=== PATIENT | female | born 1935 | race Asian ===

== ENCOUNTER 2018-05-18 21:37 | Inpatient (IN) | payer MEDICARE, MEDICAID ==
[~2018-05-18] VITALS: Ht 160 cm; Wt 60.8 kg
[~2018-05-18 21:37] MED LIST: CELEBREX100 MG ORAL; CYCLOBENZAPRINE10 MG ORAL; HEPARIN SO5000 UNIT2 SUBQ; LIDODERM700 M1 TOPIC; NEURONTIN300 MG ORAL; NORCO 10/3251 EA ORAL
[2018-05-18 21:40] VITALS: BP 138/84
--- NOTE | 2018-05-18 21:44 | Emergency Room Report ---
History of Present Illness General Chief Complaint: Fever Source: Family Member, EMS Present Illness HPI Patient is an 82-year-old female brought in by EMS after increased fever. Patient poorly had been having fever for several days. Patient was having generalized body aches. The patient prior history of hypertension as well as CVA. The patient had not been vomiting or having diarrhea. She was having some increased difficulty with breathing.The patient was having chest discomfort for one day. She reports having increased abdominal pain radiating to her back. It has any black or bloody stools. She had not been vomiting. As she presents having some urinary urgency. 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 Allergies: Coded Allergies: ASPIRIN (Verified Allergy, Intermediate, Hives, 05/19/18) Navarro (Verified Allergy, Unknown, 05/19/18) Patient History Past Medical History: old chart reviewed Last Menstrual Period: n/a Reviewed Nursing Documentation: PMH: Agreed; PSxH: Agreed Nursing Documentation-PMH Past Medical History: No History, Except For Hx Hypertension: Yes Hx Cerebrovascular Accident: Yes - right sided deficit Review of Systems All Other Systems: limited - by poor historian Physical Exam Vital Signs Date Time Temp Pulse Resp B/P (MAP) Pulse Ox O2 Delivery O2 Flow Rate FiO2 05/18/18 21:31 98.8 100 16 134/81 96 98.8 Sp02 EP Interpretation: reviewed, normal General Appearance: alert, GCS 15, mild distress Head: atraumatic ENT: normal ENT inspection, hearing grossly normal, normal voice Neck: normal inspection, full range of motion, supple, no bony tend Respiratory: normal inspection, normal breath sounds, no respiratory distress, no retraction, no wheezing Cardiovascular #1: regular rate, rhythm, no edema Gastrointestinal: normal inspection, normal bowel sounds, non tender, soft, no guarding, no hernia Genitourinary: no CVA tenderness Musculoskeletal: normal inspection, back normal, normal range of motion Neurologic: normal inspection, alert, responsive, 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 Differential diagnosis included wasn't limited to pneumonia, urinary tract infection, drug fever, allergic reaction, sepsis, cholecystitis, among others.Because of complexity of patient's case laboratory testing and imaging studies were ordered. I EKG interpreted by me showed sinus tachycardia with a rate of [address] changes. The patient was given IV pain medications as well as IV antibiotics. The patient noted to have elevation of her alkaline phosphatase as well as liver function tests. The patient was noted to have a distended gallbladder as well as pericholecystic fluid on CT imaging. Dr. Mari Velásquez was contacted for inpatient management due to panel physician. Dr. Mckeon was contacted for surgical consult. Labs Test 05/18/18 21:50 05/18/18 22:30 White Blood Count 11.7 K/UL (4.8-10.8) Red Blood Count 4.16 M/UL (4.20-5.40) Hemoglobin 13.5 G/DL (12.0-16.0) Hematocrit 38.2 % (37.0-47.0) Mean Corpuscular Volume 92 FL (80-99) Mean Corpuscular Hemoglobin 32.4 PG (27.0-31.0) Mean Corpuscular Hemoglobin Concent 35.3 G/DL (32.0-36.0) Red Cell Distribution Width 11.4 % (11.6-14.8) Platelet Count 117 K/UL (150-450) Mean Platelet Volume 9.3 FL (6.5-10.1) Neutrophils (%) (Auto) % (45.0-75.0) Lymphocytes (%) (Auto) % (20.0-45.0) Monocytes (%) (Auto) % (1.0-10.0) Eosinophils (%) (Auto) % (0.0-3.0) Basophils (%) (Auto) % (0.0-2.0) Differential Total Cells Counted 100 Neutrophils % (Manual) 90 % (45-75) Lymphocytes % (Manual) 5 % (20-45) Monocytes % (Manual) 4 % (1-10) Eosinophils % (Manual) 1 % (0-3) Basophils % (Manual) 0 % (0-2) Band Neutrophils 0 % (0-8) Platelet Estimate Decreased Platelet Morphology Normal Red Blood Cell Morphology Normal Sodium Level 134 MMOL/L (136-145) Potassium Level 3.2 MMOL/L (3.5-5.1) Chloride Level 98 MMOL/L (98-107) Carbon Dioxide Level 26 MMOL/L (21-32) Anion Gap 11 mmol/L (5-15) Blood Urea Nitrogen 8 mg/dL (7-18) Creatinine 0.7 MG/DL (0.55-1.30) Estimat Glomerular Filtration Rate mL/min (>60) Glucose Level 121 MG/DL (74-106) Lactic Acid Level 1.00 mmol/L (0.4-2.0) Calcium Level 8.6 MG/DL (8.5-10.1) Phosphorus Level 2.1 MG/DL (2.5-4.9) Magnesium Level 1.6 MG/DL (1.8-2.4) Total Bilirubin 1.0 MG/DL (0.2-1.0) Aspartate Amino Transf (AST/SGOT) 241 U/L (15-37) Alanine Aminotransferase (ALT/SGPT) 250 U/L (12-78) Alkaline Phosphatase 317 U/L (46-116) Total Creatine Kinase 81 U/L (26-308) Creatine Kinase MB < 0.5 NG/ML (0.0-3.6) Creatine Kinase MB Relative Index 0.6 Troponin I 0.015 ng/mL (0.000-0.056) Pro-B-Type Natriuretic Peptide 524 pg/mL (0-125) Total Protein 7.1 G/DL (6.4-8.2) Albumin 3.4 G/DL (3.4-5.0) Globulin 3.7 g/dL Albumin/Globulin Ratio 0.9 (1.0-2.7) Lipase 138 U/L (73-393) Urine Color Yellow Urine Appearance Slightly cloudy Urine pH 8 (4.5-8.0) Urine Specific [place] 1.010 (1.005-1.035) Urine Protein 1+ (NEGATIVE) Urine Glucose (UA) Negative (NEGATIVE) Urine Ketones 1+ (NEGATIVE) Urine Blood 4+ (NEGATIVE) Urine Nitrite Negative (NEGATIVE) Urine Bilirubin Negative (NEGATIVE) Urine Urobilinogen 1 MG/DL (0.0-1.0) Urine Leukocyte Esterase Negative (NEGATIVE) Urine RBC Tntc /HPF (0 - 2) Urine WBC 0-2 /HPF (0 - 2) Urine Squamous Epithelial Cells Many /LPF (NONE/OCC) Urine Bacteria Few /HPF (NONE) EKG Diagnostic Results Rate: tachycardiac - 100 Rhythm: NSR ST Segments: no acute changes Chest X-Ray Diagnostic Results Chest X-Ray Diagnostic Results : Chest X-Ray Ordered: Yes # of Views/Limited/Complete: 1 View Indication: Chest Pain EP Interpretation: Yes Interpretation: no consolidation, no effusion, no pneumothorax, no acute cardiopulmonary disease Impression: No acute disease Electronically Signed by: Electronically signed by Dr. Rick Aguilera M.D. Last Vital Signs Date Time Temp Pulse Resp B/P (MAP) Pulse Ox O2 Delivery O2 Flow Rate FiO2 05/18/18 21:31 98.8 100 16 134/81 96 98.8 Status: unchanged Disposition: ADMITTED INPATIENT Condition: Serious Rick Aguilera MD May 18, 2018 21:43
[2018-05-18] MEDS ORDERED: Ampicillin/Sulbactam Sod 3 GM in NS 110 ML IV SCH (21:45)
[2018-05-18] MEDS ORDERED: Morphine Sulfate 2mg/ml Inj IVP ONE (22:00)
[2018-05-18 22:13] LABS: HEMATOCRIT 38.2 % (37.0-47.0); HEMOGLOBIN 13.5 G/DL (12.0-16.0); MEAN CORPUSCULAR VOLUME 92 FL (80-99); PLATELET COUNT 117 K/UL (150-450); RED BLOOD COUNT 4.16 M/UL (4.20-5.40); RED CELL DISTRIBUTION WIDTH 11.4 % (11.6-14.8); WHITE BLOOD COUNT 11.7 K/UL (4.8-10.8)
[2018-05-18] MEDS ORDERED: Isovue-300 100ml vial INJ PRN (22:15)
[2018-05-18 22:17] LABS: ANION GAP 11 mmol/L (5-15); BLOOD UREA NITROGEN 8 mg/dL (7-18); CALCIUM 8.6 MG/DL (8.5-10.1); CARBON DIOXIDE 26 MMOL/L (21-32); CHLORIDE 98 MMOL/L (98-107); CREATININE 0.7 MG/DL (0.55-1.30); POTASSIUM 3.2 MMOL/L (3.5-5.1); SODIUM 134 MMOL/L (136-145)
[2018-05-18 22:30] LABS: ALANINE AMINOTRANSFERASE 250 U/L (12-78); ALBUMIN 3.4 G/DL (3.4-5.0); ALBUMIN/GLOBULIN RATIO 0.9 (1.0-2.7); ALKALINE PHOSPHATASE 317 U/L (46-116); ASPARTATE AMINO TRANSFERASE 241 U/L (15-37); CKMB < 0.5 NG/ML (0.0-3.6); CREATINE KINASE 81 U/L (26-308); PHOSPHORUS 2.1 MG/DL (2.5-4.9)
[2018-05-18 22:52] LABS: APPEARANCE,URINE SLIGHTLY CLOUDY; BILIRUBIN, URINE NEGATIVE (NEGATIVE); COLOR,URINE YELLOW; GLUCOSE, URINE (UA) NEGATIVE (NEGATIVE); KETONES,URINE 1+ (NEGATIVE); LEUKOCYTE ESTERASE ,URINE NEGATIVE (NEGATIVE); NITRITE,URINE NEGATIVE (NEGATIVE); PH,URINE 8 (4.5-8.0); PROTEIN,URINE 1+ (NEGATIVE); UROBILINOGEN,URINE 1 MG/DL (0.0-1.0)
[2018-05-19 00:30] VITALS: BP 141/88
[2018-05-19] MEDS ORDERED: Morphine Sulfate 4mg/ml Inj (IV USE ONLY) IVP PRN (00:45)
[2018-05-19] MEDS ORDERED: 1/2NS w/KCl 20mEq 1000ml 1,000 ML IV SCH (01:40)
[2018-05-19 04:00] VITALS: BP 125/74
[2018-05-19 06:57] LABS: HEMATOCRIT 36.3 % (37.0-47.0); HEMOGLOBIN 12.3 G/DL (12.0-16.0); MEAN CORPUSCULAR VOLUME 91 FL (80-99); PLATELET COUNT 123 K/UL (150-450); RED CELL DISTRIBUTION WIDTH 11.7 % (11.6-14.8); WHITE BLOOD COUNT 9.5 K/UL (4.8-10.8)
[2018-05-19 07:29] LABS: ALANINE AMINOTRANSFERASE 187 U/L (12-78); ALBUMIN 2.9 G/DL (3.4-5.0); ALBUMIN/GLOBULIN RATIO 0.9 (1.0-2.7); ALKALINE PHOSPHATASE 275 U/L (46-116); ANION GAP 8 mmol/L (5-15); ASPARTATE AMINO TRANSFERASE 108 U/L (15-37); BILIRUBIN,TOTAL 0.7 MG/DL (0.2-1.0); BLOOD UREA NITROGEN 7 mg/dL (7-18); CALCIUM 7.9 MG/DL (8.5-10.1); CARBON DIOXIDE 24 MMOL/L (21-32); CHLORIDE 104 MMOL/L (98-107); CREATININE 0.6 MG/DL (0.55-1.30); POTASSIUM 3.6 MMOL/L (3.5-5.1); SODIUM 136 MMOL/L (136-145)
[2018-05-19 08:00] VITALS: BP 113/75
--- NOTE | 2018-05-19 08:34 | Consultation ---
History of Present Illness General Date patient seen: May 19, 2018 Present Illness Allergies: Coded Allergies: ASPIRIN (Verified Allergy, Intermediate, Hives, 05/19/18) Navarro (Verified Allergy, Unknown, 05/19/18) Medication History Scheduled Celecoxib* (Celebrex*), 100 MG ORAL TWICE A DAY, (Reported) Gabapentin (Neurontin), 300 MG ORAL BEDTIME, (Reported) Heparin Sod (Porcine) (Heparin Sodium*), 5,000 UNITS SUBQ Q12HR, (Reported) Lidocaine (Lidoderm), 2 TOPIC Q12HR, (Reported) Lidocaine (Lidoderm), 1 PATCH TOPIC DAILY, (Reported) Scheduled PRN Cyclobenzaprine Hcl* (Flexeril*), 10 MG ORAL Q8HR PRN for bladder issue, ( Reported) Hydrocodone/Acetaminophen (Hydrocodon-Acetaminophn 10-325), 1 TAB ORAL Q4H PRN for For Pain, (Reported) Patient History Healthcare decision maker Resuscitation status Full Code Advanced Directive on File Physical Exam Last 24 Hour Vital Signs Date Time Temp Pulse Resp B/P (MAP) Pulse Ox O2 Delivery O2 Flow Rate FiO2 05/19/18 04:00 98.3 82 17 125/74 (91) 96 98.3 05/19/18 04:00 82 05/19/18 00:52 Room Air 05/19/18 00:30 98.7 106 20 141/88 (105) 95 98.7 05/19/18 00:30 106 05/19/18 00:20 98.8 104 17 138/84 96 Room Air 98.8 05/18/18 22:35 98.8 05/18/18 22:05 98.8 05/18/18 21:40 98.6 104 17 138/84 96 Room Air 98.6 05/18/18 21:31 98.8 100 16 134/81 96 98.8 Intake and Output 05/18/18 05/19/18 19:00 07:00 Intake Total 350 ml Output Total 100 ml Balance 250 ml Intake IV Total 350 ml Output Urine Total 100 ml # Voids 2 Laboratory Tests Test 05/18/18 21:50 05/18/18 22:30 05/19/18 06:10 White Blood Count 11.7 K/UL (4.8-10.8) H 9.5 K/UL (4.8-10.8) Red Blood Count 4.16 M/UL (4.20-5.40) L 4.00 M/UL (4.20-5.40) L Hemoglobin 13.5 G/DL (12.0-16.0) 12.3 G/DL (12.0-16.0) Hematocrit 38.2 % (37.0-47.0) 36.3 % (37.0-47.0) L Mean Corpuscular Volume 92 FL (80-99) 91 FL (80-99) Mean Corpuscular Hemoglobin 32.4 PG (27.0-31.0) H 30.8 PG (27.0-31.0) Mean Corpuscular Hemoglobin Concent 35.3 G/DL (32.0-36.0) 33.8 G/DL (32.0-36.0) Red Cell Distribution Width 11.4 % (11.6-14.8) L 11.7 % (11.6-14.8) Platelet Count 117 K/UL (150-450) L 123 K/UL (150-450) L Mean Platelet Volume 9.3 FL (6.5-10.1) 11.0 FL (6.5-10.1) H Neutrophils (%) (Auto) % (45.0-75.0) % (45.0-75.0) Lymphocytes (%) (Auto) % (20.0-45.0) % (20.0-45.0) Monocytes (%) (Auto) % (1.0-10.0) % (1.0-10.0) Eosinophils (%) (Auto) % (0.0-3.0) % (0.0-3.0) Basophils (%) (Auto) % (0.0-2.0) % (0.0-2.0) Differential Total Cells Counted 100 Neutrophils % (Manual) 90 % (45-75) H Pending Lymphocytes % (Manual) 5 % (20-45) L Pending Monocytes % (Manual) 4 % (1-10) Eosinophils % (Manual) 1 % (0-3) Basophils % (Manual) 0 % (0-2) Band Neutrophils 0 % (0-8) Platelet Estimate Decreased L Pending Platelet Morphology Normal Pending Red Blood Cell Morphology Normal Sodium Level 134 MMOL/L (136-145) L 136 MMOL/L (136-145) Potassium Level 3.2 MMOL/L (3.5-5.1) L 3.6 MMOL/L (3.5-5.1) Chloride Level 98 MMOL/L (98-107) 104 MMOL/L (98-107) Carbon Dioxide Level 26 MMOL/L (21-32) 24 MMOL/L (21-32) Anion Gap 11 mmol/L (5-15) 8 mmol/L (5-15) Blood Urea Nitrogen 8 mg/dL (7-18) 7 mg/dL (7-18) Creatinine 0.7 MG/DL (0.55-1.30) 0.6 MG/DL (0.55-1.30) Estimat Glomerular Filtration Rate mL/min (>60) mL/min (>60) Glucose Level 121 MG/DL (74-106) H 109 MG/DL (74-106) H Lactic Acid Level 1.00 mmol/L (0.4-2.0) Calcium Level 8.6 MG/DL (8.5-10.1) 7.9 MG/DL (8.5-10.1) L Phosphorus Level 2.1 MG/DL (2.5-4.9) L Magnesium Level 1.6 MG/DL (1.8-2.4) L Total Bilirubin 1.0 MG/DL (0.2-1.0) 0.7 MG/DL (0.2-1.0) Aspartate Amino Transf (AST/SGOT) 241 U/L (15-37) H 108 U/L (15-37) H Alanine Aminotransferase (ALT/SGPT) 250 U/L (12-78) H 187 U/L (12-78) H Alkaline Phosphatase 317 U/L (46-116) H 275 U/L (46-116) H Total Creatine Kinase 81 U/L (26-308) Creatine Kinase MB < 0.5 NG/ML (0.0-3.6) Creatine Kinase MB Relative Index 0.6 Troponin I 0.015 ng/mL (0.000-0.056) Pro-B-Type Natriuretic Peptide 524 pg/mL (0-125) H Total Protein 7.1 G/DL (6.4-8.2) 6.3 G/DL (6.4-8.2) L Albumin 3.4 G/DL (3.4-5.0) 2.9 G/DL (3.4-5.0) L Globulin 3.7 g/dL 3.4 g/dL Albumin/Globulin Ratio 0.9 (1.0-2.7) L 0.9 (1.0-2.7) L Lipase 138 U/L (73-393) 96 U/L (73-393) Urine Color Yellow Urine Appearance Slightly cloudy Urine pH 8 (4.5-8.0) Urine Specific [place] 1.010 (1.005-1.035) Urine Protein 1+ (NEGATIVE) H Urine Glucose (UA) Negative (NEGATIVE) Urine Ketones 1+ (NEGATIVE) H Urine Blood 4+ (NEGATIVE) H Urine Nitrite Negative (NEGATIVE) Urine Bilirubin Negative (NEGATIVE) Urine Urobilinogen 1 MG/DL (0.0-1.0) H Urine Leukocyte Esterase Negative (NEGATIVE) Urine RBC Tntc /HPF (0 - 2) H Urine WBC 0-2 /HPF (0 - 2) Urine Squamous Epithelial Cells Many /LPF (NONE/OCC) H Urine Bacteria Few /HPF (NONE) Height (Feet): 5 Height (Inches): 3.00 Weight (Pounds): 123 Medications Current Medications Medications (Trade) Dose Ordered Sig/Nori Route PRN Reason Start Time Stop Time Status Last Admin Dose Admin Dextrose (Dextrose 50%) 25 ml Q30M PRN IV Hypoglycemia 05/19/18 00:45 06/18/18 00:44 Dextrose (Dextrose 50%) 50 ml Q30M PRN IV Hypoglycemia 05/19/18 00:45 06/18/18 00:44 Iopamidol (Isovue-300 100ml) 100 ml NOW PRN INJ Radiology Procedure 05/18/18 22:15 Morphine Sulfate (Morphine Sulfate) 2 mg EVERY 4 HOURS PRN IVP Severe Pain (Pain Scale 7-10) 05/19/18 00:45 05/26/18 00:44 Sodium 1,000 ml @ 70 mls/hr [id number] IV 05/19/18 01:40 06/18/18 01:39 05/19/18 01:47 Assessment/Plan Assessment/Plan (1) Abdominal pain (2) Cholecystis seen dictated Romulo Newell May 19, 2018 08:34
--- NOTE | 2018-05-19 08:56 | Consultation ---
Consult Note Consult Note asked to eval for low urine out put Patient is an 82-year-old female brought in by EMS after increased fever. Patient poorly had been having fever for several days. Patient was having generalized body aches. The patient prior history of hypertension as well as CVA. The patient had not been vomiting or having diarrhea. She was having some increased difficulty with breathing.The patient was having chest discomfort for one day. She reports having increased abdominal pain radiating to her back. It has any black or bloody stools. She had not been vomiting. As she presents having some urinary urgency. 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
--- NOTE | 2018-05-19 09:16 | Diagnostic Imaging Report ---
Clinical Indication: Epigastric abdominal pain Technique: No oral contrast utilized, per emergency room physician request IV administration nonionic contrast. Venous phase spiral acquisition obtained through the abdomen and pelvis. Multiplanar reconstructions were generated. Total dose length product 596.88 mGycm. CTDIvol(s) 11.12 mGy. Dose reduction achieved using automated exposure control Comparison: none Findings: The gallbladder is mildly distended, and the wall is edematous. There is no pericholecystic inflammation. No gallstones are demonstrated. The extrahepatic bile ducts are normal in caliber, although the tarango appear to enhance unusually prominently. There is a tiny duodenal diverticulum. The liver demonstrates a subcentimeter low-attenuation lesion in segment 4A which is too small to characterize. It is otherwise unremarkable. The pancreas, spleen, adrenals are all unremarkable. The right kidney demonstrates an exophytic interpolar region cyst. The left kidney demonstrates minimal fullness of the collecting system, but no definite downstream obstructive lesion. No focal abnormality. No renal or ureteral calculi demonstrated. No retroperitoneal or mesenteric mass or adenopathy. There is a 1.5 cm cyst in the left ovary. There are arcuate artery calcifications in the uterus. The bladder is unremarkable. No evidence of diverticulosis or diverticulitis. The appendix is normal, although is filled with what appears to be bowel contrast. No other ingested contrast is demonstrated. No small bowel distention. A few small bowel loops are mildly fluid-filled. The distal esophagus and stomach are unremarkable. No free intraperitoneal gas or fluid demonstrated. The included lung bases demonstrate crowding of the bronchovascular markings and some atelectatic changes. The heart is upper limits normal in size. The bones demonstrate degenerative spondylosis changes. There are compression fracture deformities of T7 and T8. Impression: Edematous gallbladder wall, without evidence of gallstones or pericholecystic inflammation. Differential considerations include acalculous acute cholecystitis, acute cholecystitis secondary to occult calculus, gallbladder wall edema secondary to adjacent hepatocellular inflammation or due to hemodynamic causes. Consider ultrasound for further evaluation No other acute findings Compression fracture deformities of T7 and T8, demonstrated on recent MRI of 05/17/2015 to be nonacute Mild nonspecific fullness of the left renal collecting system without downstream obstructive lesion. Possibility of pyelonephritis should be considered 1.5 cm left ovarian cyst is probably benign and no further follow-up necessary Incidental findings as noted, including small duodenal diverticulum, subcentimeter low-attenuation left lobe liver lesion, right renal cyst This agrees with the preliminary interpretation provided overnight by [facility] teleradiology service. Images also reviewed in person with Dr. Mckeon The CT scanner at [facility] is accredited by the [employer] and the scans are performed using protocols designed to limit radiation exposure to as low as reasonably achievable to attain images of sufficient resolution adequate for diagnostic evaluation.
[2018-05-19 09:34] LABS: BILIRUBIN, URINE NEGATIVE (NEGATIVE); GLUCOSE, URINE (UA) NEGATIVE (NEGATIVE); KETONES,URINE 3+ (NEGATIVE); LEUKOCYTE ESTERASE ,URINE 1+ (NEGATIVE); NITRITE,URINE NEGATIVE (NEGATIVE); PH,URINE 7 (4.5-8.0); PROTEIN,URINE 1+ (NEGATIVE); UROBILINOGEN,URINE 1 MG/DL (0.0-1.0)
[2018-05-19 09:38] LABS: PHOSPHORUS 2.5 MG/DL (2.5-4.9)
[2018-05-19 09:45] LABS: APPEARANCE,URINE SLIGHTLY CLOUDY; COLOR,URINE YELLOW
--- NOTE | 2018-05-19 10:13 | General Surgery Progress Note ---
General Surgery-Progress Note Subjective Additional Comments abdominal pain and tightness of chest Objective Last 24 Hour Vital Signs Date Time Temp Pulse Resp B/P (MAP) Pulse Ox O2 Delivery O2 Flow Rate FiO2 05/19/18 08:00 97.7 88 19 113/75 (88) 97 97.7 05/19/18 04:00 98.3 82 17 125/74 (91) 96 98.3 05/19/18 04:00 82 05/19/18 00:52 Room Air 05/19/18 00:30 98.7 106 20 141/88 (105) 95 98.7 05/19/18 00:30 106 05/19/18 00:20 98.8 104 17 138/84 96 Room Air 98.8 05/18/18 22:35 98.8 05/18/18 22:05 98.8 05/18/18 21:40 98.6 104 17 138/84 96 Room Air 98.6 05/18/18 21:31 98.8 100 16 134/81 96 98.8 I&O Intake and Output 05/18/18 05/19/18 19:00 07:00 Intake Total 350 ml Output Total 100 ml Balance 250 ml Intake IV Total 350 ml Output Urine Total 100 ml # Voids 2 Respiratory: clear Abdomen: soft, flat, present bowel sounds, other - mild tenderness at epigastrium no tendernss at RUQ Extremities: no tenderness Laboratory Tests Test 05/18/18 21:50 05/18/18 22:30 05/19/18 06:10 05/19/18 09:10 White Blood Count 11.7 K/UL (4.8-10.8) H 9.5 K/UL (4.8-10.8) Red Blood Count 4.16 M/UL (4.20-5.40) L 4.00 M/UL (4.20-5.40) L Hemoglobin 13.5 G/DL (12.0-16.0) 12.3 G/DL (12.0-16.0) Hematocrit 38.2 % (37.0-47.0) 36.3 % (37.0-47.0) L Mean Corpuscular Volume 92 FL (80-99) 91 FL (80-99) Mean Corpuscular Hemoglobin 32.4 PG (27.0-31.0) H 30.8 PG (27.0-31.0) Mean Corpuscular Hemoglobin Concent 35.3 G/DL (32.0-36.0) 33.8 G/DL (32.0-36.0) Red Cell Distribution Width 11.4 % (11.6-14.8) L 11.7 % (11.6-14.8) Platelet Count 117 K/UL (150-450) L 123 K/UL (150-450) L Mean Platelet Volume 9.3 FL (6.5-10.1) 11.0 FL (6.5-10.1) H Neutrophils (%) (Auto) % (45.0-75.0) % (45.0-75.0) Lymphocytes (%) (Auto) % (20.0-45.0) % (20.0-45.0) Monocytes (%) (Auto) % (1.0-10.0) % (1.0-10.0) Eosinophils (%) (Auto) % (0.0-3.0) % (0.0-3.0) Basophils (%) (Auto) % (0.0-2.0) % (0.0-2.0) Differential Total Cells Counted 100 100 Neutrophils % (Manual) 90 % (45-75) H 86 % (45-75) H Lymphocytes % (Manual) 5 % (20-45) L 5 % (20-45) L Monocytes % (Manual) 4 % (1-10) 2 % (1-10) Eosinophils % (Manual) 1 % (0-3) 3 % (0-3) Basophils % (Manual) 0 % (0-2) 0 % (0-2) Band Neutrophils 0 % (0-8) 4 % (0-8) Platelet Estimate Decreased L Decreased L Platelet Morphology Normal Normal Red Blood Cell Morphology Normal Normal Sodium Level 134 MMOL/L (136-145) L 136 MMOL/L (136-145) Potassium Level 3.2 MMOL/L (3.5-5.1) L 3.6 MMOL/L (3.5-5.1) Chloride Level 98 MMOL/L (98-107) 104 MMOL/L (98-107) Carbon Dioxide Level 26 MMOL/L (21-32) 24 MMOL/L (21-32) Anion Gap 11 mmol/L (5-15) 8 mmol/L (5-15) Blood Urea Nitrogen 8 mg/dL (7-18) 7 mg/dL (7-18) Creatinine 0.7 MG/DL (0.55-1.30) 0.6 MG/DL (0.55-1.30) Estimat Glomerular Filtration Rate mL/min (>60) mL/min (>60) Glucose Level 121 MG/DL (74-106) H 109 MG/DL (74-106) H Lactic Acid Level 1.00 mmol/L (0.4-2.0) Calcium Level 8.6 MG/DL (8.5-10.1) 7.9 MG/DL (8.5-10.1) L Phosphorus Level 2.1 MG/DL (2.5-4.9) L 2.5 MG/DL (2.5-4.9) Magnesium Level 1.6 MG/DL (1.8-2.4) L 1.7 MG/DL (1.8-2.4) L Total Bilirubin 1.0 MG/DL (0.2-1.0) 0.7 MG/DL (0.2-1.0) Aspartate Amino Transf (AST/SGOT) 241 U/L (15-37) H 108 U/L (15-37) H Alanine Aminotransferase (ALT/SGPT) 250 U/L (12-78) H 187 U/L (12-78) H Alkaline Phosphatase 317 U/L (46-116) H 275 U/L (46-116) H Total Creatine Kinase 81 U/L (26-308) Creatine Kinase MB < 0.5 NG/ML (0.0-3.6) Creatine Kinase MB Relative Index 0.6 Troponin I 0.015 ng/mL (0.000-0.056) Pro-B-Type Natriuretic Peptide 524 pg/mL (0-125) H 558 pg/mL (0-125) H Total Protein 7.1 G/DL (6.4-8.2) 6.3 G/DL (6.4-8.2) L Albumin 3.4 G/DL (3.4-5.0) 2.9 G/DL (3.4-5.0) L Globulin 3.7 g/dL 3.4 g/dL Albumin/Globulin Ratio 0.9 (1.0-2.7) L 0.9 (1.0-2.7) L Lipase 138 U/L (73-393) 96 U/L (73-393) Urine Color Yellow Yellow Urine Appearance Slightly cloudy Slightly cloudy Urine pH 8 (4.5-8.0) 7 (4.5-8.0) Urine Specific [place] 1.010 (1.005-1.035) 1.005 (1.005-1.035) Urine Protein 1+ (NEGATIVE) H 1+ (NEGATIVE) H Urine Glucose (UA) Negative (NEGATIVE) Negative (NEGATIVE) Urine Ketones 1+ (NEGATIVE) H 3+ (NEGATIVE) H Urine Blood 4+ (NEGATIVE) H 4+ (NEGATIVE) H Urine Nitrite Negative (NEGATIVE) Negative (NEGATIVE) Urine Bilirubin Negative (NEGATIVE) Negative (NEGATIVE) Urine Urobilinogen 1 MG/DL (0.0-1.0) H 1 MG/DL (0.0-1.0) H Urine Leukocyte Esterase Negative (NEGATIVE) 1+ (NEGATIVE) H Urine RBC Tntc /HPF (0 - 2) H 15-20 /HPF (0 - 2) H Urine WBC 0-2 /HPF (0 - 2) 2-4 /HPF (0 - 2) Urine Squamous Epithelial Cells Many /LPF (NONE/OCC) H Few /LPF (NONE/OCC) Urine Bacteria Few /HPF (NONE) Few /HPF (NONE) Hemoglobin A1c 6.0 % (4.3-6.0) Uric Acid 2.1 MG/DL (2.6-7.2) L Gamma Glutamyl Transpeptidase 165 U/L (5-85) H C-Reactive Protein, Quantitative 5.9 mg/dL (0.00-0.90) H Vitamin B12 Level 729 PG/ML (193-986) Folate 18.3 NG/ML (8.6-58.9) Thyroid Stimulating Hormone (TSH) 0.179 uiU/mL (0.358-3.740) Assessment Additional Comments abdominal pain resolving Plan Additional Comments she requires stat cardiology consult besides she requires ultrasound of abdomen and G-I consult. CAT scan did not show stone in gall bladder it is only distended and gall bladder wall is thick. this picture does not mach acalculus cholecystitis at this time especilly with tightness of chest I do not recomment surgery . Continue conservative treatment and further evaluation Jackie Mckeon MD May 19, 2018 10:13
[2018-05-19] MEDS: Pantoprazole Inj IVP SCH ×2 (11:22→21:42)
[2018-05-19] MEDS: Piperacillin/Tazobactam 3.375 GM in D5W 110 ML IVPB SCH ×2 (11:22→18:49)
--- NOTE | 2018-05-19 11:54 | Diagnostic Imaging Report ---
Indication: Reason For Exam: SOB Technique: One view of the chest Comparison: none Findings: No acute infiltrates, effusions, or congestion. Tortuous calcified aorta. Normal heart size. Upper mediastinum unremarkable. Impression: No acute process. This agrees with the preliminary interpretation provided by the emergency room physician
[2018-05-19 12:06] VITALS: BP 139/72
--- NOTE | 2018-05-19 12:35 | Consultation ---
History of Present Illness General Date patient seen: May 19, 2018 Chief Complaint: Fever Present Illness HPI 82-year-old female brought in by EMS after increased fever. the pt is [place] female admitted yesterday because of fever, epigastric pain the pt had severe anxiety and stated that she was going to leave ama. During the eval she was alert and oriented and agreed to stay till medically cleared. the pt has capacity to make decisions Allergies: Coded Allergies: ASPIRIN (Verified Allergy, Intermediate, Hives, 05/19/18) [place] (Verified Allergy, Unknown, 05/19/18) Medication History Scheduled Celecoxib* (Celebrex*), 100 MG ORAL TWICE A DAY, (Reported) Gabapentin (Neurontin), 300 MG ORAL BEDTIME, (Reported) Heparin Sod (Porcine) (Heparin Sodium*), 5,000 UNITS SUBQ Q12HR, (Reported) Lidocaine (Lidoderm), 2 TOPIC Q12HR, (Reported) Lidocaine (Lidoderm), 1 PATCH TOPIC DAILY, (Reported) Scheduled PRN Cyclobenzaprine Hcl* (Flexeril*), 10 MG ORAL Q8HR PRN for bladder issue, ( Reported) Hydrocodone/Acetaminophen (Hydrocodon-Acetaminophn 10-325), 1 TAB ORAL Q4H PRN for For Pain, (Reported) Patient History Limited by: medical condition History Provided By: Patient, Medical Record Healthcare decision maker Resuscitation status Full Code Advanced Directive on File Past Medical/Surgical History Past Medical/Surgical History: (1) Back pain (2) Degenerative disc disease, lumbar (3) Degenerative disc disease, thoracic (4) Compression fracture of thoracic spine, non-traumatic (5) Lumbar spondylosis (6) Herniated nucleus pulposus, lumbar (7) Annular tear of lumbar disc (8) Cholecystitis (9) Sepsis (10) GERD (gastroesophageal reflux disease) (11) Abdominal pain (12) Dehydration (13) Hematuria (14) Hypoalbuminemia Review of Systems Psychiatric: Reports: prior hx, anxiety Physical Exam General Appearance: alert, moderate distress Neurologic: oriented x 3, responsive, depressed affect Last 24 Hour Vital Signs Date Time Temp Pulse Resp B/P (MAP) Pulse Ox O2 Delivery O2 Flow Rate FiO2 05/19/18 12:06 98.1 75 19 139/72 (94) 97 98.1 05/19/18 10:39 Nasal Cannula 2.0 05/19/18 08:00 97.7 88 19 113/75 (88) 97 97.7 05/19/18 08:00 88 05/19/18 04:00 98.3 82 17 125/74 (91) 96 98.3 05/19/18 04:00 82 05/19/18 00:52 Room Air 05/19/18 00:30 98.7 106 20 141/88 (105) 95 98.7 05/19/18 00:30 106 05/19/18 00:20 98.8 104 17 138/84 96 Room Air 98.8 05/18/18 22:35 98.8 05/18/18 22:05 98.8 05/18/18 21:40 98.6 104 17 138/84 96 Room Air 98.6 05/18/18 21:31 98.8 100 16 134/81 96 98.8 Intake and Output 05/18/18 05/19/18 19:00 07:00 Intake Total 350 ml Output Total 100 ml Balance 250 ml Intake IV Total 350 ml Output Urine Total 100 ml # Voids 2 Laboratory Tests Test 05/18/18 21:50 05/18/18 22:30 05/19/18 06:10 05/19/18 09:10 White Blood Count 11.7 K/UL (4.8-10.8) H 9.5 K/UL (4.8-10.8) Red Blood Count 4.16 M/UL (4.20-5.40) L 4.00 M/UL (4.20-5.40) L Hemoglobin 13.5 G/DL (12.0-16.0) 12.3 G/DL (12.0-16.0) Hematocrit 38.2 % (37.0-47.0) 36.3 % (37.0-47.0) L Mean Corpuscular Volume 92 FL (80-99) 91 FL (80-99) Mean Corpuscular Hemoglobin 32.4 PG (27.0-31.0) H 30.8 PG (27.0-31.0) Mean Corpuscular Hemoglobin Concent 35.3 G/DL (32.0-36.0) 33.8 G/DL (32.0-36.0) Red Cell Distribution Width 11.4 % (11.6-14.8) L 11.7 % (11.6-14.8) Platelet Count 117 K/UL (150-450) L 123 K/UL (150-450) L Mean Platelet Volume 9.3 FL (6.5-10.1) 11.0 FL (6.5-10.1) H Neutrophils (%) (Auto) % (45.0-75.0) % (45.0-75.0) Lymphocytes (%) (Auto) % (20.0-45.0) % (20.0-45.0) Monocytes (%) (Auto) % (1.0-10.0) % (1.0-10.0) Eosinophils (%) (Auto) % (0.0-3.0) % (0.0-3.0) Basophils (%) (Auto) % (0.0-2.0) % (0.0-2.0) Differential Total Cells Counted 100 100 Neutrophils % (Manual) 90 % (45-75) H 86 % (45-75) H Lymphocytes % (Manual) 5 % (20-45) L 5 % (20-45) L Monocytes % (Manual) 4 % (1-10) 2 % (1-10) Eosinophils % (Manual) 1 % (0-3) 3 % (0-3) Basophils % (Manual) 0 % (0-2) 0 % (0-2) Band Neutrophils 0 % (0-8) 4 % (0-8) Platelet Estimate Decreased L Decreased L Platelet Morphology Normal Normal Red Blood Cell Morphology Normal Normal Sodium Level 134 MMOL/L (136-145) L 136 MMOL/L (136-145) Potassium Level 3.2 MMOL/L (3.5-5.1) L 3.6 MMOL/L (3.5-5.1) Chloride Level 98 MMOL/L (98-107) 104 MMOL/L (98-107) Carbon Dioxide Level 26 MMOL/L (21-32) 24 MMOL/L (21-32) Anion Gap 11 mmol/L (5-15) 8 mmol/L (5-15) Blood Urea Nitrogen 8 mg/dL (7-18) 7 mg/dL (7-18) Creatinine 0.7 MG/DL (0.55-1.30) 0.6 MG/DL (0.55-1.30) Estimat Glomerular Filtration Rate mL/min (>60) mL/min (>60) Glucose Level 121 MG/DL (74-106) H 109 MG/DL (74-106) H Lactic Acid Level 1.00 mmol/L (0.4-2.0) Calcium Level 8.6 MG/DL (8.5-10.1) 7.9 MG/DL (8.5-10.1) L Phosphorus Level 2.1 MG/DL (2.5-4.9) L 2.5 MG/DL (2.5-4.9) Magnesium Level 1.6 MG/DL (1.8-2.4) L 1.7 MG/DL (1.8-2.4) L Total Bilirubin 1.0 MG/DL (0.2-1.0) 0.7 MG/DL (0.2-1.0) Aspartate Amino Transf (AST/SGOT) 241 U/L (15-37) H 108 U/L (15-37) H Alanine Aminotransferase (ALT/SGPT) 250 U/L (12-78) H 187 U/L (12-78) H Alkaline Phosphatase 317 U/L (46-116) H 275 U/L (46-116) H Total Creatine Kinase 81 U/L (26-308) Creatine Kinase MB < 0.5 NG/ML (0.0-3.6) Creatine Kinase MB Relative Index 0.6 Troponin I 0.015 ng/mL (0.000-0.056) Pro-B-Type Natriuretic Peptide 524 pg/mL (0-125) H 558 pg/mL (0-125) H Total Protein 7.1 G/DL (6.4-8.2) 6.3 G/DL (6.4-8.2) L Albumin 3.4 G/DL (3.4-5.0) 2.9 G/DL (3.4-5.0) L Globulin 3.7 g/dL 3.4 g/dL Albumin/Globulin Ratio 0.9 (1.0-2.7) L 0.9 (1.0-2.7) L Lipase 138 U/L (73-393) 96 U/L (73-393) Urine Color Yellow Yellow Urine Appearance Slightly cloudy Slightly cloudy Urine pH 8 (4.5-8.0) 7 (4.5-8.0) Urine Specific [place] 1.010 (1.005-1.035) 1.005 (1.005-1.035) Urine Protein 1+ (NEGATIVE) H 1+ (NEGATIVE) H Urine Glucose (UA) Negative (NEGATIVE) Negative (NEGATIVE) Urine Ketones 1+ (NEGATIVE) H 3+ (NEGATIVE) H Urine Blood 4+ (NEGATIVE) H 4+ (NEGATIVE) H Urine Nitrite Negative (NEGATIVE) Negative (NEGATIVE) Urine Bilirubin Negative (NEGATIVE) Negative (NEGATIVE) Urine Urobilinogen 1 MG/DL (0.0-1.0) H 1 MG/DL (0.0-1.0) H Urine Leukocyte Esterase Negative (NEGATIVE) 1+ (NEGATIVE) H Urine RBC Tntc /HPF (0 - 2) H 15-20 /HPF (0 - 2) H Urine WBC 0-2 /HPF (0 - 2) 2-4 /HPF (0 - 2) Urine Squamous Epithelial Cells Many /LPF (NONE/OCC) H Few /LPF (NONE/OCC) Urine Bacteria Few /HPF (NONE) Few /HPF (NONE) Hemoglobin A1c 6.0 % (4.3-6.0) Uric Acid 2.1 MG/DL (2.6-7.2) L Gamma Glutamyl Transpeptidase 165 U/L (5-85) H C-Reactive Protein, Quantitative 5.9 mg/dL (0.00-0.90) H Vitamin B12 Level 729 PG/ML (193-986) Folate 18.3 NG/ML (8.6-58.9) Thyroid Stimulating Hormone (TSH) 0.179 uiU/mL (0.358-3.740) Hepatitis A IgM Antibody Pending Hepatitis B Surface Antigen Pending Hepatitis B Core IgM Antibody Pending Hepatitis C Antibody Pending HIV (1&2) Antibody Rapid Negative (NEGATIVE) Height (Feet): 5 Height (Inches): 3.00 Weight (Pounds): 123 Medications Current Medications Medications (Trade) Dose Ordered Sig/Nori Route PRN Reason Start Time Stop Time Status Last Admin Dose Admin Dextrose (Dextrose 50%) 25 ml Q30M PRN IV Hypoglycemia 05/19/18 00:45 06/18/18 00:44 Dextrose (Dextrose 50%) 50 ml Q30M PRN IV Hypoglycemia 05/19/18 00:45 06/18/18 00:44 Dextrose/ Electrolytes 1,000 ml @ 75 mls/hr [id number] IV 05/19/18 10:00 06/18/18 09:59 05/19/18 11:22 Gabapentin (Neurontin) 300 mg BEDTIME ORAL 05/19/18 21:00 06/18/18 20:59 Heparin Sodium (Porcine) (Heparin 5000 units/ml) 5,000 units Q12HR SUBQ 05/19/18 21:00 06/18/18 20:59 Iopamidol (Isovue-300 100ml) 100 ml NOW PRN INJ Radiology Procedure 05/18/18 22:15 Morphine Sulfate (Morphine Sulfate) 2 mg EVERY 4 HOURS PRN IVP Severe Pain (Pain Scale 7-10) 05/19/18 00:45 05/26/18 00:44 Pantoprazole (Protonix) 40 mg EVERY 12 HOURS IVP 05/19/18 09:02 06/18/18 09:01 05/19/18 11:22 Piperacillin Sod/ Tazobactam Sod 3.375 gm/Dextrose 110 ml @ 27.5 mls/hr Q8H IVPB 05/19/18 11:00 05/26/18 10:59 05/19/18 11:22 Assessment/Plan Status: stable Assessment/Plan Anxiety d/o Ativan prn Provided richard/Alesia Ware MD May 19, 2018 12:35
--- NOTE | 2018-05-19 12:43 | Diagnostic Imaging Report ---
Indication: Abdominal pain, abnormal liver function tests, chronic back pain Technique: Lynch-scale and duplex images of the upper abdomen were obtained. Doppler interrogation of the hepatic vessels Comparison: Reference made to CT scan of earlier the same day Findings: Gallbladder is distended. There is only borderline wall thickening, which appears less striking than well-seen on the prior CT scan. No gallstones are demonstrated Sonographic Sears's sign is negative. Common bile duct measures by mm in diameter. No intrahepatic biliary ductal dilatation. Liver demonstrates equivocally slightly coarsened slightly increased echogenicity. Portal vein and hepatic veins are patent. Pancreas is unremarkable. Spleen is unremarkable. Left kidney measures 10.4 cm in length. Right kidney measures 9.2 cm length. Both kidneys demonstrate normal echogenicity. There is no hydronephrosis. Right kidney demonstrates a small interpolar region cyst. Both kidneys demonstrate lobulated contours . Non-aneurysmal abdominal aorta . Impression: Distended gallbladder. No evidence of gallstones. Only minimal dating gallbladder wall thickening, gallbladder wall appears much less striking than seen on prior CT Negative for dilated ducts Equivocally slightly coarsened slightly increased hepatic echogenicity, if real could indicate hepatocellular disease, otherwise nonspecific Incidental finding small right renal cyst
--- NOTE | 2018-05-19 13:10 | GI Initial Consult Note ---
History of Present Illness General Date patient seen: May 19, 2018 Time patient seen: 13:04 Reason for Hospitalization: Fever Referring physician: JONNY SNOW Reason for Consultation: ABDOMINAL PAIN Present Illness HPI Patient is an 82-year-old female brought in by EMS after increased fever. Patient poorly had been having fever for several days. Patient was having generalized body aches. The patient prior history of hypertension as well as CVA. The patient had not been vomiting or having diarrhea. She was having some increased difficulty with breathing.The patient was having chest discomfort for one day. She reports having increased abdominal pain radiating to her back. It has any black or bloody stools. She had not been vomiting. As she presents having some urinary urgency. 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 Pt seen, awake A&Ox4 NAD c/o of nausea with no vomiting. Has severe epigastric pain. Stated her last endoscopy approximately 5 years ago, colonoscopy 10 years. Labs reviewed show transaminitis with elevated alkaline phosphatase. CT AP show distended gall bladder. No anemia. No leukocytosis. Home Meds Reported Medications Heparin Sod (Porcine) (HEPARIN SODIUM*) 5 000/1 Ml Vial, 5000 UNITS SUBQ Q12HR, VIAL 05/20/15 Lidocaine (Lidoderm) 700 Mg Adh..patch, 1 PATCH TOPIC DAILY for 12hr On 12hr Off , #15 PATCH 0 Refills Patch(es) may remain in place for up to 12 hours in any 24-hour period. 05/20/15 Gabapentin (Neurontin) 300 Mg Cap, 300 MG ORAL BEDTIME, #7 CAP 0 Refills 05/20/15 Cyclobenzaprine Hcl* (FLEXERIL*) 10 Mg Tablet, 10 MG ORAL Q8HR PRN for bladder issue, TAB 05/20/15 Hydrocodone/Acetaminophen (Hydrocodon-Acetaminophn 10-325) 1 Ea Tab, 1 TAB ORAL Q4H PRN for For Pain, #30 TAB 0 Refills 05/20/15 Lidocaine (Lidoderm) 700 Mg Adh..patch, 2 TOPIC Q12HR, #60 05/17/15 Celecoxib* (CELEBREX*) 100 Mg Capsule, 100 MG ORAL TWICE A DAY, CAP 05/17/15 Med list reviewed/reconciled: Yes Allergies: Coded Allergies: ASPIRIN (Verified Allergy, Intermediate, Hives, 05/19/18) [place] (Verified Allergy, Unknown, 05/19/18) Patient History History Provided By: Patient, Medical Record PMH Narrative Past Medical History: old chart reviewed Last Menstrual Period: n/a Reviewed Nursing Documentation: PMH: Agreed; PSxH: Agreed Nursing Documentation-PMH Past Medical History: No History, Except For Hx Hypertension: Yes Hx Cerebrovascular Accident: Yes - right sided deficit Social History: Denies: smoking, alcohol use, drug use, other Review of Systems All Other Systems: negative except mentioned in HPI Physical Exam Vital Signs Date Time Temp Pulse Resp B/P (MAP) Pulse Ox O2 Delivery O2 Flow Rate FiO2 05/18/18 21:31 98.8 100 16 134/81 96 98.8 05/18/18 21:40 Room Air 05/19/18 10:39 2.0 Sp02 EP Interpretation: reviewed, normal Labs Laboratory Tests Test 05/18/18 21:50 05/18/18 22:30 05/19/18 06:10 05/19/18 09:10 White Blood Count 11.7 K/UL (4.8-10.8) H 9.5 K/UL (4.8-10.8) Red Blood Count 4.16 M/UL (4.20-5.40) L 4.00 M/UL (4.20-5.40) L Hemoglobin 13.5 G/DL (12.0-16.0) 12.3 G/DL (12.0-16.0) Hematocrit 38.2 % (37.0-47.0) 36.3 % (37.0-47.0) L Mean Corpuscular Volume 92 FL (80-99) 91 FL (80-99) Mean Corpuscular Hemoglobin 32.4 PG (27.0-31.0) H 30.8 PG (27.0-31.0) Mean Corpuscular Hemoglobin Concent 35.3 G/DL (32.0-36.0) 33.8 G/DL (32.0-36.0) Red Cell Distribution Width 11.4 % (11.6-14.8) L 11.7 % (11.6-14.8) Platelet Count 117 K/UL (150-450) L 123 K/UL (150-450) L Mean Platelet Volume 9.3 FL (6.5-10.1) 11.0 FL (6.5-10.1) H Neutrophils (%) (Auto) % (45.0-75.0) % (45.0-75.0) Lymphocytes (%) (Auto) % (20.0-45.0) % (20.0-45.0) Monocytes (%) (Auto) % (1.0-10.0) % (1.0-10.0) Eosinophils (%) (Auto) % (0.0-3.0) % (0.0-3.0) Basophils (%) (Auto) % (0.0-2.0) % (0.0-2.0) Differential Total Cells Counted 100 100 Neutrophils % (Manual) 90 % (45-75) H 86 % (45-75) H Lymphocytes % (Manual) 5 % (20-45) L 5 % (20-45) L Monocytes % (Manual) 4 % (1-10) 2 % (1-10) Eosinophils % (Manual) 1 % (0-3) 3 % (0-3) Basophils % (Manual) 0 % (0-2) 0 % (0-2) Band Neutrophils 0 % (0-8) 4 % (0-8) Platelet Estimate Decreased L Decreased L Platelet Morphology Normal Normal Red Blood Cell Morphology Normal Normal Sodium Level 134 MMOL/L (136-145) L 136 MMOL/L (136-145) Potassium Level 3.2 MMOL/L (3.5-5.1) L 3.6 MMOL/L (3.5-5.1) Chloride Level 98 MMOL/L (98-107) 104 MMOL/L (98-107) Carbon Dioxide Level 26 MMOL/L (21-32) 24 MMOL/L (21-32) Anion Gap 11 mmol/L (5-15) 8 mmol/L (5-15) Blood Urea Nitrogen 8 mg/dL (7-18) 7 mg/dL (7-18) Creatinine 0.7 MG/DL (0.55-1.30) 0.6 MG/DL (0.55-1.30) Estimat Glomerular Filtration Rate mL/min (>60) mL/min (>60) Glucose Level 121 MG/DL (74-106) H 109 MG/DL (74-106) H Lactic Acid Level 1.00 mmol/L (0.4-2.0) Calcium Level 8.6 MG/DL (8.5-10.1) 7.9 MG/DL (8.5-10.1) L Phosphorus Level 2.1 MG/DL (2.5-4.9) L 2.5 MG/DL (2.5-4.9) Magnesium Level 1.6 MG/DL (1.8-2.4) L 1.7 MG/DL (1.8-2.4) L Total Bilirubin 1.0 MG/DL (0.2-1.0) 0.7 MG/DL (0.2-1.0) Aspartate Amino Transf (AST/SGOT) 241 U/L (15-37) H 108 U/L (15-37) H Alanine Aminotransferase (ALT/SGPT) 250 U/L (12-78) H 187 U/L (12-78) H Alkaline Phosphatase 317 U/L (46-116) H 275 U/L (46-116) H Total Creatine Kinase 81 U/L (26-308) Creatine Kinase MB < 0.5 NG/ML (0.0-3.6) Creatine Kinase MB Relative Index 0.6 Troponin I 0.015 ng/mL (0.000-0.056) Pro-B-Type Natriuretic Peptide 524 pg/mL (0-125) H 558 pg/mL (0-125) H Total Protein 7.1 G/DL (6.4-8.2) 6.3 G/DL (6.4-8.2) L Albumin 3.4 G/DL (3.4-5.0) 2.9 G/DL (3.4-5.0) L Globulin 3.7 g/dL 3.4 g/dL Albumin/Globulin Ratio 0.9 (1.0-2.7) L 0.9 (1.0-2.7) L Lipase 138 U/L (73-393) 96 U/L (73-393) Urine Color Yellow Yellow Urine Appearance Slightly cloudy Slightly cloudy Urine pH 8 (4.5-8.0) 7 (4.5-8.0) Urine Specific [place] 1.010 (1.005-1.035) 1.005 (1.005-1.035) Urine Protein 1+ (NEGATIVE) H 1+ (NEGATIVE) H Urine Glucose (UA) Negative (NEGATIVE) Negative (NEGATIVE) Urine Ketones 1+ (NEGATIVE) H 3+ (NEGATIVE) H Urine Blood 4+ (NEGATIVE) H 4+ (NEGATIVE) H Urine Nitrite Negative (NEGATIVE) Negative (NEGATIVE) Urine Bilirubin Negative (NEGATIVE) Negative (NEGATIVE) Urine Urobilinogen 1 MG/DL (0.0-1.0) H 1 MG/DL (0.0-1.0) H Urine Leukocyte Esterase Negative (NEGATIVE) 1+ (NEGATIVE) H Urine RBC Tntc /HPF (0 - 2) H 15-20 /HPF (0 - 2) H Urine WBC 0-2 /HPF (0 - 2) 2-4 /HPF (0 - 2) Urine Squamous Epithelial Cells Many /LPF (NONE/OCC) H Few /LPF (NONE/OCC) Urine Bacteria Few /HPF (NONE) Few /HPF (NONE) Hemoglobin A1c 6.0 % (4.3-6.0) Uric Acid 2.1 MG/DL (2.6-7.2) L Gamma Glutamyl Transpeptidase 165 U/L (5-85) H C-Reactive Protein, Quantitative 5.9 mg/dL (0.00-0.90) H Vitamin B12 Level 729 PG/ML (193-986) Folate 18.3 NG/ML (8.6-58.9) Thyroid Stimulating Hormone (TSH) 0.179 uiU/mL (0.358-3.740) Hepatitis A IgM Antibody Pending Hepatitis B Surface Antigen Pending Hepatitis B Core IgM Antibody Pending Hepatitis C Antibody Pending HIV (1&2) Antibody Rapid Negative (NEGATIVE) General Appearance: well appearing, no apparent distress, alert Head: normocephalic EENT: PERRL/EOMI, normal ENT inspection Neck: supple Respiratory: normal breath sounds, no respiratory distress Cardiovascular: normal rate Gastrointestinal: normal inspection, non tender, soft, normal bowel sounds, non -distended Rectal: deferred Genitourinary: no CVA tenderness Musculoskeletal: normal inspection, back normal Neurologic: normal inspection, alert, oriented x3, responsive Psychiatric: normal inspection, judgement/insight normal, memory normal Skin: normal inspection, normal color, no rash, warm/dry, palpation normal, well hydrated Lymphatic: normal inspection, no adenopathy Current Medications Current Medications Medications (Trade) Dose Ordered Sig/Nori Route PRN Reason Start Time Stop Time Status Last Admin Dose Admin Dextrose (Dextrose 50%) 25 ml Q30M PRN IV Hypoglycemia 05/19/18 00:45 06/18/18 00:44 Dextrose (Dextrose 50%) 50 ml Q30M PRN IV Hypoglycemia 05/19/18 00:45 06/18/18 00:44 Dextrose/ Electrolytes 1,000 ml @ 75 mls/hr [id number] IV 05/19/18 10:00 06/18/18 09:59 05/19/18 11:22 Gabapentin (Neurontin) 300 mg BEDTIME ORAL 05/19/18 21:00 06/18/18 20:59 Heparin Sodium (Porcine) (Heparin 5000 units/ml) 5,000 units Q12HR SUBQ 05/19/18 21:00 06/18/18 20:59 Iopamidol (Isovue-300 100ml) 100 ml NOW PRN INJ Radiology Procedure 05/18/18 22:15 Morphine Sulfate (Morphine Sulfate) 2 mg EVERY 4 HOURS PRN IVP Severe Pain (Pain Scale 7-10) 05/19/18 00:45 05/26/18 00:44 Pantoprazole (Protonix) 40 mg EVERY 12 HOURS IVP 05/19/18 09:02 06/18/18 09:01 05/19/18 11:22 Piperacillin Sod/ Tazobactam Sod 3.375 gm/Dextrose 110 ml @ 27.5 mls/hr Q8H IVPB 05/19/18 11:00 05/26/18 10:59 05/19/18 11:22 GI: Plan Problems: (1) GERD (gastroesophageal reflux disease) (2) Abdominal pain (3) Cholecystitis (4) Sepsis Plan follow up surgical recs for possible cholecystitis fu cardiology recs for CP will consider endoscopy if epigastric pain not resolved by medical management ppi BID zofran prn electrolyte correction pain mgmt CLD, adv as tolerated fu labs Discussed with Dr. Swenson. Thank you for this patient referral, we will follow. The patient was seen and examined at bedside and all new and available data was reviewed in the patients chart. I agree with the above findings, impression and plan. (Patient seen earlier today. Signature stamp does not reflect patient encounter time.). - MD Rylee [facility]En[facility] DENTISTRY PROFESSOR May 19, 2018 13:10
[2018-05-19 16:16] VITALS: BP 142/71
--- NOTE | 2018-05-19 17:00 | Consultation ---
DATE OF CONSULTATION: 05/19/2018 CONSULTING PHYSICIAN: Jackie Mckeon M.D. REQUESTING PHYSICIAN: Mari Levy M.D. REASON FOR CONSULTATION: Abdominal pain. HISTORY OF PRESENT ILLNESS: This is an 82-year-old Armenian female, who presented to emergency room for two days history of abdominal pain and fever and shortness of breath. She stated that she felt warm and felt that she had fever, but she did not use a thermometer and besides, she has been having chills. For the abdominal pain, she stated that it was located at the epigastrium, steady, without radiation. She denied any nausea or vomiting. She claimed that since she has been in the hospital, the pain has improved . Besides, she complained of tightness of her chest with shortness of breath. She denies cough or dysuria although she has been having polyuria. PAST MEDICAL HISTORY: She claimed to be allergic to penicillin and elmo. She denies asthma, diabetes, hypertension, and cardiac or renal diseases. She denies any history of jaundice. PAST SURGICAL HISTORY: Surgeries include back surgery. MEDICATIONS AT HOME: Apparently, she has been on Celebrex, gabapentin, heparin, and lidocaine patch. It should be noted that 15 days ago, the patient apparently has had a TIA with paralysis of the right side of the brain, which has resolved in 2 days, but she has been hospitalized for few days and apparently, she is on Plavix, but I did not see list of her medication although the ER physician informed me that the patient has been on Plavix. SOCIAL HISTORY: This is an 82-year-old Armenian female, , mother of 5 children. Denies smoking and drinking. REVIEW OF SYSTEMS: Unobtainable due to the language barrier, but at this time, she does not have any weakness on the right side of the body. PHYSICAL EXAMINATION: GENERAL: The patient appeared to be a well-developed, well-nourished, 82-year-old, oriental female, lying on the bed, does not seem to be in acute distress, although she complains of tightness of her chest. HEENT: Head is normocephalic and atraumatic. Eyes, pupils are equal, round, and reactive to light. Mouth is clear. NECK: There is no palpable thyromegaly or adenopathy. CHEST: Clear to auscultation and percussion. Good expansion. HEART: There is no gallop or murmur. S1 and S2 are within normal limits. ABDOMEN: Soft and flat. She has a very mild tenderness at the epigastrium, but she is free of tenderness at the right upper quadrant. She absolutely does not have any tenderness at the right upper quadrant. There is no palpable organomegaly. Her bowel sounds are present. GENITAL: Deferred. EXTREMITIES: Within normal limits. LABORATORY DATA: CBC on admission showed a WBC of 11,700 with a left shift, but this morning WBC has been 9500 with a mild left shift. Chemistries on admission had shown SGOT and SGPT of 250 and alkaline phosphatase of 317, but total bilirubin has been 1 and troponin had been 0.015. The rest of the chemistry is almost within normal limits. The CAT scan of the abdomen, I reviewed it with Dr. Sosa and we had a long discussion. It shows distended gallbladder with edema of the gallbladder wall, but there is no stone and there is no pericholecystic fluid. There is no inflammatory sign around the gallbladder. ASSESSMENT: Abdominal pain, resolving. RECOMMENDATION: At this time, I am not sure about the etiology of the pain in the epigastrium of this patient, but this cannot be acute cholecystitis as there is absolutely no tenderness at the right upper quadrant besides the WBC, which was 11,700 on admission, has dropped to 9500 and even the differential has improved. The liver enzymes were elevated last night, but this morning, they have improved. I am not sure about the etiology of the elevated alkaline phosphatase, but anyway at this time, the patient does not require any surgery besides, we need an ultrasound to better evaluate the gallbladder. The patient is complaining of the tightness of the chest. So, she requires stat Cardiology consultation to make sure about the heart and the urine had shown [id number] red blood cells. She requires a Nephrology consultation. At this time, considering the tightness of the chest and anticoagulation medication that she has been taking for stroke and the history of TIA, surgery is not recommended and I feel that she can benefit from the conservative treatment. I would like to have a GI consultation too to make sure about the diagnosis. Jackie Mckeon M.D. DR: MARI JOB#: [id number] CC: [id number]
--- NOTE | 2018-05-19 18:48 | Cardiology Progress Note ---
Assessment/Plan Assessment/Plan The patient is seen and examined, full consult note will be dictated shortly. Objective Last 24 Hour Vital Signs Date Time Temp Pulse Resp B/P (MAP) Pulse Ox O2 Delivery O2 Flow Rate FiO2 05/19/18 16:16 97.7 60 20 142/71 (94) 97 97.7 05/19/18 16:02 Nasal Cannula 2.0 28 05/19/18 16:01 97 Nasal Cannula 2.0 28 05/19/18 16:00 73 05/19/18 12:06 98.1 75 19 139/72 (94) 97 98.1 05/19/18 12:00 83 05/19/18 10:39 Nasal Cannula 2.0 05/19/18 08:00 97.7 88 19 113/75 (88) 97 97.7 05/19/18 08:00 88 05/19/18 04:00 98.3 82 17 125/74 (91) 96 98.3 05/19/18 04:00 82 05/19/18 00:52 Room Air 05/19/18 00:30 98.7 106 20 141/88 (105) 95 98.7 05/19/18 00:30 106 05/19/18 00:20 98.8 104 17 138/84 96 Room Air 98.8 05/18/18 22:35 98.8 05/18/18 22:05 98.8 05/18/18 21:40 98.6 104 17 138/84 96 Room Air 98.6 05/18/18 21:31 98.8 100 16 134/81 96 98.8 Intake and Output 05/18/18 05/19/18 19:00 07:00 Intake Total 350 ml Output Total 100 ml Balance 250 ml IV Total 350 ml Output Urine Total 100 ml # Voids 2 Laboratory Tests Test 05/18/18 21:50 05/18/18 22:30 05/19/18 06:10 05/19/18 09:10 White Blood Count 11.7 K/UL (4.8-10.8) H 9.5 K/UL (4.8-10.8) Red Blood Count 4.16 M/UL (4.20-5.40) L 4.00 M/UL (4.20-5.40) L Hemoglobin 13.5 G/DL (12.0-16.0) 12.3 G/DL (12.0-16.0) Hematocrit 38.2 % (37.0-47.0) 36.3 % (37.0-47.0) L Mean Corpuscular Volume 92 FL (80-99) 91 FL (80-99) Mean Corpuscular Hemoglobin 32.4 PG (27.0-31.0) H 30.8 PG (27.0-31.0) Mean Corpuscular Hemoglobin Concent 35.3 G/DL (32.0-36.0) 33.8 G/DL (32.0-36.0) Red Cell Distribution Width 11.4 % (11.6-14.8) L 11.7 % (11.6-14.8) Platelet Count 117 K/UL (150-450) L 123 K/UL (150-450) L Mean Platelet Volume 9.3 FL (6.5-10.1) 11.0 FL (6.5-10.1) H Neutrophils (%) (Auto) % (45.0-75.0) % (45.0-75.0) Lymphocytes (%) (Auto) % (20.0-45.0) % (20.0-45.0) Monocytes (%) (Auto) % (1.0-10.0) % (1.0-10.0) Eosinophils (%) (Auto) % (0.0-3.0) % (0.0-3.0) Basophils (%) (Auto) % (0.0-2.0) % (0.0-2.0) Differential Total Cells Counted 100 100 Neutrophils % (Manual) 90 % (45-75) H 86 % (45-75) H Lymphocytes % (Manual) 5 % (20-45) L 5 % (20-45) L Monocytes % (Manual) 4 % (1-10) 2 % (1-10) Eosinophils % (Manual) 1 % (0-3) 3 % (0-3) Basophils % (Manual) 0 % (0-2) 0 % (0-2) Band Neutrophils 0 % (0-8) 4 % (0-8) Platelet Estimate Decreased L Decreased L Platelet Morphology Normal Normal Red Blood Cell Morphology Normal Normal Sodium Level 134 MMOL/L (136-145) L 136 MMOL/L (136-145) Potassium Level 3.2 MMOL/L (3.5-5.1) L 3.6 MMOL/L (3.5-5.1) Chloride Level 98 MMOL/L (98-107) 104 MMOL/L (98-107) Carbon Dioxide Level 26 MMOL/L (21-32) 24 MMOL/L (21-32) Anion Gap 11 mmol/L (5-15) 8 mmol/L (5-15) Blood Urea Nitrogen 8 mg/dL (7-18) 7 mg/dL (7-18) Creatinine 0.7 MG/DL (0.55-1.30) 0.6 MG/DL (0.55-1.30) Estimat Glomerular Filtration Rate mL/min (>60) mL/min (>60) Glucose Level 121 MG/DL (74-106) H 109 MG/DL (74-106) H Lactic Acid Level 1.00 mmol/L (0.4-2.0) Calcium Level 8.6 MG/DL (8.5-10.1) 7.9 MG/DL (8.5-10.1) L Phosphorus Level 2.1 MG/DL (2.5-4.9) L 2.5 MG/DL (2.5-4.9) Magnesium Level 1.6 MG/DL (1.8-2.4) L 1.7 MG/DL (1.8-2.4) L Total Bilirubin 1.0 MG/DL (0.2-1.0) 0.7 MG/DL (0.2-1.0) Aspartate Amino Transf (AST/SGOT) 241 U/L (15-37) H 108 U/L (15-37) H Alanine Aminotransferase (ALT/SGPT) 250 U/L (12-78) H 187 U/L (12-78) H Alkaline Phosphatase 317 U/L (46-116) H 275 U/L (46-116) H Total Creatine Kinase 81 U/L (26-308) Creatine Kinase MB < 0.5 NG/ML (0.0-3.6) Creatine Kinase MB Relative Index 0.6 Troponin I 0.015 ng/mL (0.000-0.056) Pro-B-Type Natriuretic Peptide 524 pg/mL (0-125) H 558 pg/mL (0-125) H Total Protein 7.1 G/DL (6.4-8.2) 6.3 G/DL (6.4-8.2) L Albumin 3.4 G/DL (3.4-5.0) 2.9 G/DL (3.4-5.0) L Globulin 3.7 g/dL 3.4 g/dL Albumin/Globulin Ratio 0.9 (1.0-2.7) L 0.9 (1.0-2.7) L Lipase 138 U/L (73-393) 96 U/L (73-393) Urine Color Yellow Yellow Urine Appearance Slightly cloudy Slightly cloudy Urine pH 8 (4.5-8.0) 7 (4.5-8.0) Urine Specific [place] 1.010 (1.005-1.035) 1.005 (1.005-1.035) Urine Protein 1+ (NEGATIVE) H 1+ (NEGATIVE) H Urine Glucose (UA) Negative (NEGATIVE) Negative (NEGATIVE) Urine Ketones 1+ (NEGATIVE) H 3+ (NEGATIVE) H Urine Blood 4+ (NEGATIVE) H 4+ (NEGATIVE) H Urine Nitrite Negative (NEGATIVE) Negative (NEGATIVE) Urine Bilirubin Negative (NEGATIVE) Negative (NEGATIVE) Urine Urobilinogen 1 MG/DL (0.0-1.0) H 1 MG/DL (0.0-1.0) H Urine Leukocyte Esterase Negative (NEGATIVE) 1+ (NEGATIVE) H Urine RBC Tntc /HPF (0 - 2) H 15-20 /HPF (0 - 2) H Urine WBC 0-2 /HPF (0 - 2) 2-4 /HPF (0 - 2) Urine Squamous Epithelial Cells Many /LPF (NONE/OCC) H Few /LPF (NONE/OCC) Urine Bacteria Few /HPF (NONE) Few /HPF (NONE) Hemoglobin A1c 6.0 % (4.3-6.0) Uric Acid 2.1 MG/DL (2.6-7.2) L Gamma Glutamyl Transpeptidase 165 U/L (5-85) H C-Reactive Protein, Quantitative 5.9 mg/dL (0.00-0.90) H Vitamin B12 Level 729 PG/ML (193-986) Folate 18.3 NG/ML (8.6-58.9) Thyroid Stimulating Hormone (TSH) 0.179 uiU/mL (0.358-3.740) Hepatitis A IgM Antibody Pending Hepatitis B Surface Antigen Pending Hepatitis B Core IgM Antibody Pending Hepatitis C Antibody Pending HIV (1&2) Antibody Rapid Negative (NEGATIVE) Ra Matta MD May 19, 2018 18:48
[2018-05-19 20:00] VITALS: BP 122/70
[2018-05-19] MEDS: Heparin 5000 units/ml inj SUBQ SCH (21:00)
[2018-05-20] VITALS: BP 115/69
[2018-05-20] MEDS: Piperacillin/Tazobactam 3.375 GM in D5W 110 ML IVPB SCH ×3 (02:30→20:43)
[2018-05-20 04:00] VITALS: BP 111/61
[2018-05-20 05:30] LABS: BASOPHILS % (AUTO) 0.3 % (0.0-2.0); EOSINOPHILS % (AUTO) 3.2 % (0.0-3.0); HEMATOCRIT 37.1 % (37.0-47.0); HEMOGLOBIN 12.4 G/DL (12.0-16.0); LYMPHOCYTES % (AUTO) 7.6 % (20.0-45.0); MEAN CORPUSCULAR VOLUME 91 FL (80-99); MONOCYTES % (AUTO) 6.9 % (1.0-10.0); PLATELET COUNT 108 K/UL (150-450); RED BLOOD COUNT 4.07 M/UL (4.20-5.40); RED CELL DISTRIBUTION WIDTH 11.8 % (11.6-14.8); WHITE BLOOD COUNT 6.9 K/UL (4.8-10.8)
[2018-05-20 06:01] LABS: ALANINE AMINOTRANSFERASE 167 U/L (12-78); ALBUMIN 2.6 G/DL (3.4-5.0); ALBUMIN/GLOBULIN RATIO 0.8 (1.0-2.7); ALKALINE PHOSPHATASE 437 U/L (46-116); ANION GAP 8 mmol/L (5-15); ASPARTATE AMINO TRANSFERASE 95 U/L (15-37); BILIRUBIN,TOTAL 0.7 MG/DL (0.2-1.0); BLOOD UREA NITROGEN 7 mg/dL (7-18); CALCIUM 7.9 MG/DL (8.5-10.1); CARBON DIOXIDE 23 MMOL/L (21-32); CHLORIDE 106 MMOL/L (98-107); CREATININE 0.7 MG/DL (0.55-1.30); PHOSPHORUS 1.7 MG/DL (2.5-4.9); POTASSIUM 3.7 MMOL/L (3.5-5.1); SODIUM 137 MMOL/L (136-145)
[2018-05-20 08:00] VITALS: BP 121/69
[2018-05-20] MEDS: Heparin 5000 units/ml inj SUBQ SCH ×2 (08:31→20:49)
[2018-05-20] MEDS: Pantoprazole Inj IVP SCH ×2 (08:31→20:56)
--- NOTE | 2018-05-20 08:33 | General Progress Note ---
Assessment/Plan Assessment/Plan # Thrombocytopenia is likely related to potential; equivocally slightly coarsened slightly increased hepatic echogenicity, if real could indicate hepatocellular disease, otherwise nonspecific --> hepatitis and hiv pending, us of the abdomen has been reviewed --> no fevers or chills noted # Leukocytosis due to potential infection, blood cultures at this time are negative --> peripheral smear has been reviewed # GERD (gastroesophageal reflux disease) --> ppi bid # Abdominal pain --> f/u on surgical recs, for possible cholecytitis # Cholecystitis # Chest pain --> appreciate cards recs Subjective Constitutional: Denies: no symptoms, chills, diaphoresis, fever, malaise, weakness, other HEENT: Denies: no symptoms, eye pain, blurred vision, tearing, double vision, ear pain, ear discharge, nose pain, nose congestion, throat pain, throat swelling, mouth pain, mouth swelling, other Cardiovascular: Denies: no symptoms, chest pain, edema, irregular heart rate, lightheadedness, palpitations, syncope, other Respiratory: Denies: no symptoms, cough, orthopnea, shortness of breath, SOB with excertion, SOB at rest, sputum, stridor, wheezing, other Gastrointestinal/Abdominal: Denies: no symptoms, abdomen distended, abdominal pain, black stools, tarry stools, blood in stool, constipated, diarrhea, difficulty swallowing, nausea, poor appetite, poor fluid intake, rectal bleeding , vomiting, other Genitourinary: Denies: no symptoms, burning, discharge, frequency, flank pain, hematuria, incontinence, pain, urgency, other Neurologic/Psychiatric: Denies: no symptoms, anxiety, depressed, emotional problems, headache, numbness, paresthesia, pre-existing deficit, seizure, tingling, tremors, weakness, other Endocrine: Denies: no symptoms, excessive sweating, flushing, intolerance to cold, intolerance to heat, increased hunger, increased thirst, increased urine, unexplained weight gain, unexplained weight loss, other Hematologic/Lymphatic: Denies: no symptoms, anemia, easy bleeding, easy bruising, other Allergies: Coded Allergies: ASPIRIN (Verified Allergy, Intermediate, Hives, 05/19/18) [place] (Verified Allergy, Unknown, 05/19/18) Subjective imaging has been reviewed, no fevers or chills, kinyarwanda speaking Objective Last 24 Hour Vital Signs Date Time Temp Pulse Resp B/P (MAP) Pulse Ox O2 Delivery O2 Flow Rate FiO2 05/20/18 04:00 98.0 77 19 111/61 (78) 94 98.0 05/20/18 04:00 77 05/20/18 00:00 79 05/20/18 00:00 96.5 78 18 115/69 (84) 95 96.5 05/19/18 21:00 82 05/19/18 21:00 Room Air 05/19/18 20:00 97.7 80 20 122/70 (87) 95 97.7 05/19/18 19:51 96 Nasal Cannula 2.0 28 05/19/18 19:51 Nasal Cannula 2.0 28 05/19/18 16:16 97.7 60 20 142/71 (94) 97 97.7 05/19/18 16:02 Nasal Cannula 2.0 28 05/19/18 16:01 97 Nasal Cannula 2.0 28 05/19/18 16:00 73 05/19/18 12:06 98.1 75 19 139/72 (94) 97 98.1 05/19/18 12:00 83 05/19/18 10:39 Nasal Cannula 2.0 Intake and Output 05/19/18 05/20/18 19:00 07:00 Intake Total 520.0 ml 972.0 ml Balance 520.0 ml 972.0 ml Intake Oral 240 ml IV Total 280.0 ml 972.0 ml # Voids 2 2 # Bowel Movements 1 Laboratory Tests 05/19/18 09:10: Urine Color Yellow, Urine Appearance Slightly cloudy, Urine pH 7, Urine Specific [place] 1.005, Urine Protein 1+H, Urine Glucose (UA) Negative, Urine Ketones 3+H, Urine Blood 4+H, Urine Nitrite Negative, Urine Bilirubin Negative, Urine Urobilinogen 1H, Urine Leukocyte Esterase 1+H, Urine RBC 15-20H, Urine WBC 2-4, Urine Squamous Epithelial Cells Few, Urine Bacteria Few 05/20/18 05:10: White Blood Count 6.9, Red Blood Count 4.07L, Hemoglobin 12.4, Hematocrit 37.1, Mean Corpuscular Volume 91, Mean Corpuscular Hemoglobin 30.4, Mean Corpuscular Hemoglobin Concent 33.3, Red Cell Distribution Width 11.8, Platelet Count 108L, Mean Platelet Volume 9.9, Neutrophils (%) (Auto) 82.0H, Lymphocytes (%) (Auto) 7.6L, Monocytes (%) (Auto) 6.9, Eosinophils (%) (Auto) 3.2H, Basophils (%) (Auto ) 0.3, Sodium Level 137, Potassium Level 3.7, Chloride Level 106, Carbon Dioxide Level 23, Anion Gap 8, Blood Urea Nitrogen 7, Creatinine 0.7, Estimat Glomerular Filtration Rate , Glucose Level 155H, Calcium Level 7.9L, Phosphorus Level 1.7L, Magnesium Level 1.7L, Total Bilirubin 0.7, Aspartate Amino Transf ( AST/SGOT) 95H, Alanine Aminotransferase (ALT/SGPT) 167H, Alkaline Phosphatase 437H, C-Reactive Protein, Quantitative 5.3H, Pro-B-Type Natriuretic Peptide 347H , Total Protein 6.0L, Albumin 2.6L, Globulin 3.4, Albumin/Globulin Ratio 0.8L Height (Feet): 5 Height (Inches): 3.00 Weight (Pounds): 123 General Appearance: no apparent distress EENT: normal ENT inspection Neck: normal alignment Cardiovascular: normal rate Respiratory/Chest: lungs clear Abdomen: soft Extremities: normal inspection Edema: no edema noted Leg (L), no edema noted Leg (R) Edema: trace edema Neurologic: alert Skin: warm/dry Brady Rod MD May 20, 2018 08:33
--- NOTE | 2018-05-20 10:24 | GI Progress Note ---
Assessment/Plan Problems: (1) Abdominal pain ICD Codes: R10.9 - Unspecified abdominal pain SNOMED: 95282313 (2) GERD (gastroesophageal reflux disease) ICD Codes: K21.9 - Gastro-esophageal reflux disease without esophagitis SNOMED: 149208925 (3) Cholecystitis ICD Codes: K81.9 - Cholecystitis, unspecified SNOMED: 57404350 Status: stable Status Narrative Discussed with Dr. Swenson. Assessment/Plan abdominal US reviewed >> Distended gallbladder. Equivocally slightly coarsened slightly increased hepatic echogenicity, if real could indicate hepatocellular disease, otherwise nonspecific. >> surgical recs reviewed >> no intervention LFT elevation >> possible hepatocellular disease will consider endoscopy if epigastric pain not resolved by medical management > > epigastric pain resolved advance to regular diet fu cardiology recs for CP ppi BID zofran prn electrolyte correction pain mgmt fu labs The patient was seen and examined at bedside and all new and available data was reviewed in the patients chart. I agree with the above findings, impression and plan. (Patient seen earlier today. Signature stamp does not reflect patient encounter time.). - Cali Swenson MD Subjective Subjective epigastric pain resolved wants to go home Objective Last 24 Hour Vital Signs Date Time Temp Pulse Resp B/P (MAP) Pulse Ox O2 Delivery O2 Flow Rate FiO2 05/20/18 09:00 Room Air 05/20/18 08:00 98.4 75 19 121/69 (86) 94 98.4 05/20/18 04:00 98.0 77 19 111/61 (78) 94 98.0 05/20/18 04:00 77 05/20/18 00:00 79 05/20/18 00:00 96.5 78 18 115/69 (84) 95 96.5 05/19/18 21:00 82 05/19/18 21:00 Room Air 05/19/18 20:00 97.7 80 20 122/70 (87) 95 97.7 05/19/18 19:51 96 Nasal Cannula 2.0 28 05/19/18 19:51 Nasal Cannula 2.0 28 05/19/18 16:16 97.7 60 20 142/71 (94) 97 97.7 05/19/18 16:02 Nasal Cannula 2.0 28 05/19/18 16:01 97 Nasal Cannula 2.0 28 05/19/18 16:00 73 05/19/18 12:06 98.1 75 19 139/72 (94) 97 98.1 05/19/18 12:00 83 05/19/18 10:39 Nasal Cannula 2.0 Intake and Output 05/19/18 05/20/18 19:00 07:00 Intake Total 520.0 ml 972.0 ml Balance 520.0 ml 972.0 ml Intake Oral 240 ml IV Total 280.0 ml 972.0 ml # Voids 2 2 # Bowel Movements 1 Laboratory Tests Test 05/20/18 05:10 White Blood Count 6.9 K/UL (4.8-10.8) Red Blood Count 4.07 M/UL (4.20-5.40) L Hemoglobin 12.4 G/DL (12.0-16.0) Hematocrit 37.1 % (37.0-47.0) Mean Corpuscular Volume 91 FL (80-99) Mean Corpuscular Hemoglobin 30.4 PG (27.0-31.0) Mean Corpuscular Hemoglobin Concent 33.3 G/DL (32.0-36.0) Red Cell Distribution Width 11.8 % (11.6-14.8) Platelet Count 108 K/UL (150-450) L Mean Platelet Volume 9.9 FL (6.5-10.1) Neutrophils (%) (Auto) 82.0 % (45.0-75.0) H Lymphocytes (%) (Auto) 7.6 % (20.0-45.0) L Monocytes (%) (Auto) 6.9 % (1.0-10.0) Eosinophils (%) (Auto) 3.2 % (0.0-3.0) H Basophils (%) (Auto) 0.3 % (0.0-2.0) Sodium Level 137 MMOL/L (136-145) Potassium Level 3.7 MMOL/L (3.5-5.1) Chloride Level 106 MMOL/L (98-107) Carbon Dioxide Level 23 MMOL/L (21-32) Anion Gap 8 mmol/L (5-15) Blood Urea Nitrogen 7 mg/dL (7-18) Creatinine 0.7 MG/DL (0.55-1.30) Estimat Glomerular Filtration Rate mL/min (>60) Glucose Level 155 MG/DL (74-106) H Calcium Level 7.9 MG/DL (8.5-10.1) L Phosphorus Level 1.7 MG/DL (2.5-4.9) L Magnesium Level 1.7 MG/DL (1.8-2.4) L Total Bilirubin 0.7 MG/DL (0.2-1.0) Aspartate Amino Transf (AST/SGOT) 95 U/L (15-37) H Alanine Aminotransferase (ALT/SGPT) 167 U/L (12-78) H Alkaline Phosphatase 437 U/L (46-116) H C-Reactive Protein, Quantitative 5.3 mg/dL (0.00-0.90) H Pro-B-Type Natriuretic Peptide 347 pg/mL (0-125) H Total Protein 6.0 G/DL (6.4-8.2) L Albumin 2.6 G/DL (3.4-5.0) L Globulin 3.4 g/dL Albumin/Globulin Ratio 0.8 (1.0-2.7) L Height (Feet): 5 Height (Inches): 3.00 Weight (Pounds): 123 General Appearance: WD/WN, no apparent distress, alert Cardiovascular: normal rate Respiratory/Chest: normal breath sounds, no respiratory distress Abdominal Exam: normal bowel sounds, non tender, soft Extremities: normal range of motion, non-tender Holly Mckee NP May 20, 2018 10:23
--- NOTE | 2018-05-20 10:50 | Infectious Diseases Prog Note ---
Assessment/Plan Assessment/Plan antibiotics : zosyn A 1. acute cholecystitis 2. GERD 3. leucocytosis resolved P 1. continue zosyn 2. will follow up cultures Subjective ROS Limited/Unobtainable: Yes Allergies: Coded Allergies: ASPIRIN (Verified Allergy, Intermediate, Hives, 05/19/18) [place] (Verified Allergy, Unknown, 05/19/18) Objective Vital Signs Last 24 Hour Vital Signs Date Time Temp Pulse Resp B/P (MAP) Pulse Ox O2 Delivery O2 Flow Rate FiO2 05/20/18 09:00 Room Air 05/20/18 08:00 98.4 75 19 121/69 (86) 94 98.4 05/20/18 04:00 98.0 77 19 111/61 (78) 94 98.0 05/20/18 04:00 77 05/20/18 00:00 79 05/20/18 00:00 96.5 78 18 115/69 (84) 95 96.5 05/19/18 21:00 82 05/19/18 21:00 Room Air 05/19/18 20:00 97.7 80 20 122/70 (87) 95 97.7 05/19/18 19:51 96 Nasal Cannula 2.0 28 05/19/18 19:51 Nasal Cannula 2.0 28 05/19/18 16:16 97.7 60 20 142/71 (94) 97 97.7 05/19/18 16:02 Nasal Cannula 2.0 28 05/19/18 16:01 97 Nasal Cannula 2.0 28 05/19/18 16:00 73 05/19/18 12:06 98.1 75 19 139/72 (94) 97 98.1 05/19/18 12:00 83 Height (Feet): 5 Height (Inches): 3.00 Weight (Pounds): 123 Respiratory/Chest: lungs clear Cardiovascular: normal rate, regular rhythm, no gallop/murmur Abdomen: soft, non tender Extremities: no edema Microbiology Date/Time Source Procedure Growth Status 05/18/18 22:05 Blood Blood Culture - Preliminary NO GROWTH AFTER 24 HOURS Resulted 05/18/18 21:50 Blood Blood Culture - Preliminary NO GROWTH AFTER 24 HOURS Resulted Laboratory Tests Test 05/20/18 05:10 White Blood Count 6.9 K/UL (4.8-10.8) Red Blood Count 4.07 M/UL (4.20-5.40) L Hemoglobin 12.4 G/DL (12.0-16.0) Hematocrit 37.1 % (37.0-47.0) Mean Corpuscular Volume 91 FL (80-99) Mean Corpuscular Hemoglobin 30.4 PG (27.0-31.0) Mean Corpuscular Hemoglobin Concent 33.3 G/DL (32.0-36.0) Red Cell Distribution Width 11.8 % (11.6-14.8) Platelet Count 108 K/UL (150-450) L Mean Platelet Volume 9.9 FL (6.5-10.1) Neutrophils (%) (Auto) 82.0 % (45.0-75.0) H Lymphocytes (%) (Auto) 7.6 % (20.0-45.0) L Monocytes (%) (Auto) 6.9 % (1.0-10.0) Eosinophils (%) (Auto) 3.2 % (0.0-3.0) H Basophils (%) (Auto) 0.3 % (0.0-2.0) Sodium Level 137 MMOL/L (136-145) Potassium Level 3.7 MMOL/L (3.5-5.1) Chloride Level 106 MMOL/L (98-107) Carbon Dioxide Level 23 MMOL/L (21-32) Anion Gap 8 mmol/L (5-15) Blood Urea Nitrogen 7 mg/dL (7-18) Creatinine 0.7 MG/DL (0.55-1.30) Estimat Glomerular Filtration Rate mL/min (>60) Glucose Level 155 MG/DL (74-106) H Calcium Level 7.9 MG/DL (8.5-10.1) L Phosphorus Level 1.7 MG/DL (2.5-4.9) L Magnesium Level 1.7 MG/DL (1.8-2.4) L Total Bilirubin 0.7 MG/DL (0.2-1.0) Aspartate Amino Transf (AST/SGOT) 95 U/L (15-37) H Alanine Aminotransferase (ALT/SGPT) 167 U/L (12-78) H Alkaline Phosphatase 437 U/L (46-116) H C-Reactive Protein, Quantitative 5.3 mg/dL (0.00-0.90) H Pro-B-Type Natriuretic Peptide 347 pg/mL (0-125) H Total Protein 6.0 G/DL (6.4-8.2) L Albumin 2.6 G/DL (3.4-5.0) L Globulin 3.4 g/dL Albumin/Globulin Ratio 0.8 (1.0-2.7) L Current Medications Medications (Trade) Dose Ordered Sig/Nori Route PRN Reason Start Time Stop Time Status Last Admin Dose Admin Dextrose (Dextrose 50%) 25 ml Q30M PRN IV Hypoglycemia 05/19/18 00:45 06/18/18 00:44 Dextrose (Dextrose 50%) 50 ml Q30M PRN IV Hypoglycemia 05/19/18 00:45 06/18/18 00:44 Dextrose/ Electrolytes 1,000 ml @ 75 mls/hr [id number] IV 05/19/18 10:00 06/18/18 09:59 05/19/18 21:50 Gabapentin (Neurontin) 300 mg BEDTIME ORAL 05/19/18 21:00 06/18/18 20:59 05/19/18 21:43 Heparin Sodium (Porcine) (Heparin 5000 units/ml) 5,000 units Q12HR SUBQ 05/19/18 21:00 06/18/18 20:59 Iopamidol (Isovue-300 100ml) 100 ml NOW PRN INJ Radiology Procedure 05/18/18 22:15 Magnesium Sulfate 100 ml @ 100 mls/hr Q1H IVPB 05/20/18 10:30 05/20/18 12:29 Morphine Sulfate (Morphine Sulfate) 2 mg EVERY 4 HOURS PRN IVP Severe Pain (Pain Scale 7-10) 05/19/18 00:45 05/26/18 00:44 Pantoprazole (Protonix) 40 mg EVERY 12 HOURS IVP 05/19/18 09:02 06/18/18 09:01 05/20/18 08:31 Piperacillin Sod/ Tazobactam Sod 3.375 gm/Dextrose 110 ml @ 27.5 mls/hr Q8H IVPB 05/19/18 11:00 05/26/18 10:59 05/20/18 02:30 Potassium Phosphate 30 mm/ Sodium Chloride 285 ml @ 47.5 mls/hr ONCE ONCE IV 05/20/18 11:00 05/20/18 16:59 NICKY LIM May 20, 2018 10:50
--- NOTE | 2018-05-20 10:54 | Nephrology Progress Note ---
Assessment/Plan Problem List: (1) Dehydration (2) Hematuria (3) Cholecystitis (4) Abdominal pain (5) Hypoalbuminemia Assessment dehydration- High LFTs , Cholecyctitis HTN Hematuria Low Albumin Plan Zosyn K and Phos IV clear liquids Protonix IV monitor LFTs abd DAWNA per GI waiting urine culture results per orders Subjective ROS Limited/Unobtainable: No Constitutional: Reports: malaise, other - less abd pain Objective Objective Last 24 Hour Vital Signs Date Time Temp Pulse Resp B/P (MAP) Pulse Ox O2 Delivery O2 Flow Rate FiO2 05/20/18 09:00 Room Air 05/20/18 08:00 98.4 75 19 121/69 (86) 94 98.4 05/20/18 04:00 98.0 77 19 111/61 (78) 94 98.0 05/20/18 04:00 77 05/20/18 00:00 79 05/20/18 00:00 96.5 78 18 115/69 (84) 95 96.5 05/19/18 21:00 82 05/19/18 21:00 Room Air 05/19/18 20:00 97.7 80 20 122/70 (87) 95 97.7 05/19/18 19:51 96 Nasal Cannula 2.0 28 05/19/18 19:51 Nasal Cannula 2.0 28 05/19/18 16:16 97.7 60 20 142/71 (94) 97 97.7 05/19/18 16:02 Nasal Cannula 2.0 28 05/19/18 16:01 97 Nasal Cannula 2.0 28 05/19/18 16:00 73 05/19/18 12:06 98.1 75 19 139/72 (94) 97 98.1 05/19/18 12:00 83 Intake and Output 05/19/18 05/20/18 19:00 07:00 Intake Total 520.0 ml 972.0 ml Balance 520.0 ml 972.0 ml Intake Oral 240 ml IV Total 280.0 ml 972.0 ml # Voids 2 2 # Bowel Movements 1 Laboratory Tests 05/20/18 05:10: White Blood Count 6.9, Red Blood Count 4.07L, Hemoglobin 12.4, Hematocrit 37.1, Mean Corpuscular Volume 91, Mean Corpuscular Hemoglobin 30.4, Mean Corpuscular Hemoglobin Concent 33.3, Red Cell Distribution Width 11.8, Platelet Count 108L, Mean Platelet Volume 9.9, Neutrophils (%) (Auto) 82.0H, Lymphocytes (%) (Auto) 7.6L, Monocytes (%) (Auto) 6.9, Eosinophils (%) (Auto) 3.2H, Basophils (%) (Auto ) 0.3, Sodium Level 137, Potassium Level 3.7, Chloride Level 106, Carbon Dioxide Level 23, Anion Gap 8, Blood Urea Nitrogen 7, Creatinine 0.7, Estimat Glomerular Filtration Rate , Glucose Level 155H, Calcium Level 7.9L, Phosphorus Level 1.7L, Magnesium Level 1.7L, Total Bilirubin 0.7, Aspartate Amino Transf ( AST/SGOT) 95H, Alanine Aminotransferase (ALT/SGPT) 167H, Alkaline Phosphatase 437H, C-Reactive Protein, Quantitative 5.3H, Pro-B-Type Natriuretic Peptide 347H , Total Protein 6.0L, Albumin 2.6L, Globulin 3.4, Albumin/Globulin Ratio 0.8L Height (Feet): 5 Height (Inches): 3.00 Weight (Pounds): 123 General Appearance: no apparent distress Respiratory/Chest: decreased breath sounds Abdomen: soft Joshua Quinn MD May 20, 2018 10:54
[2018-05-20] MEDS ORDERED: Potassium Phosphate 30 MM in NS 275 ML IV ONE (11:00)
[2018-05-20 11:18] LABS: CHOLESTEROL 95 MG/DL (< 200); HDL CHOLESTEROL 39 MG/DL (40-60); TRIGLYCERIDES 33 MG/DL (30-150)
[2018-05-20 12:00] VITALS: BP 123/72
[2018-05-20] MEDS ORDERED: Influenza Vaccine Quadrivalent 0.5ml IM ONE (12:00)
[2018-05-20] MEDS ORDERED: Pneumococcal Vaccine 25mcg/0.5ml IM ONE (12:00)
--- NOTE | 2018-05-20 12:51 | General Surgery Progress Note ---
General Surgery-Progress Note Subjective Symptoms: improved, BM Objective Last 24 Hour Vital Signs Date Time Temp Pulse Resp B/P (MAP) Pulse Ox O2 Delivery O2 Flow Rate FiO2 05/20/18 12:00 97.8 79 19 123/72 (89) 96 97.8 05/20/18 09:00 Room Air 05/20/18 08:00 98.4 75 19 121/69 (86) 94 98.4 05/20/18 08:00 70 05/20/18 04:00 98.0 77 19 111/61 (78) 94 98.0 05/20/18 04:00 77 05/20/18 00:00 79 05/20/18 00:00 96.5 78 18 115/69 (84) 95 96.5 05/19/18 21:00 82 05/19/18 21:00 Room Air 05/19/18 20:00 97.7 80 20 122/70 (87) 95 97.7 05/19/18 19:51 96 Nasal Cannula 2.0 28 05/19/18 19:51 Nasal Cannula 2.0 28 05/19/18 16:16 97.7 60 20 142/71 (94) 97 97.7 05/19/18 16:02 Nasal Cannula 2.0 28 05/19/18 16:01 97 Nasal Cannula 2.0 28 05/19/18 16:00 73 I&O Intake and Output 05/19/18 05/20/18 19:00 07:00 Intake Total 520.0 ml 972.0 ml Balance 520.0 ml 972.0 ml Intake Oral 240 ml IV Total 280.0 ml 972.0 ml # Voids 2 2 # Bowel Movements 1 Respiratory: clear Abdomen: soft, flat, non-tender, present bowel sounds Extremities: no tenderness Laboratory Tests Test 05/20/18 05:10 White Blood Count 6.9 K/UL (4.8-10.8) Red Blood Count 4.07 M/UL (4.20-5.40) L Hemoglobin 12.4 G/DL (12.0-16.0) Hematocrit 37.1 % (37.0-47.0) Mean Corpuscular Volume 91 FL (80-99) Mean Corpuscular Hemoglobin 30.4 PG (27.0-31.0) Mean Corpuscular Hemoglobin Concent 33.3 G/DL (32.0-36.0) Red Cell Distribution Width 11.8 % (11.6-14.8) Platelet Count 108 K/UL (150-450) L Mean Platelet Volume 9.9 FL (6.5-10.1) Neutrophils (%) (Auto) 82.0 % (45.0-75.0) H Lymphocytes (%) (Auto) 7.6 % (20.0-45.0) L Monocytes (%) (Auto) 6.9 % (1.0-10.0) Eosinophils (%) (Auto) 3.2 % (0.0-3.0) H Basophils (%) (Auto) 0.3 % (0.0-2.0) Sodium Level 137 MMOL/L (136-145) Potassium Level 3.7 MMOL/L (3.5-5.1) Chloride Level 106 MMOL/L (98-107) Carbon Dioxide Level 23 MMOL/L (21-32) Anion Gap 8 mmol/L (5-15) Blood Urea Nitrogen 7 mg/dL (7-18) Creatinine 0.7 MG/DL (0.55-1.30) Estimat Glomerular Filtration Rate mL/min (>60) Glucose Level 155 MG/DL (74-106) H Calcium Level 7.9 MG/DL (8.5-10.1) L Phosphorus Level 1.7 MG/DL (2.5-4.9) L Magnesium Level 1.7 MG/DL (1.8-2.4) L Total Bilirubin 0.7 MG/DL (0.2-1.0) Aspartate Amino Transf (AST/SGOT) 95 U/L (15-37) H Alanine Aminotransferase (ALT/SGPT) 167 U/L (12-78) H Alkaline Phosphatase 437 U/L (46-116) H C-Reactive Protein, Quantitative 5.3 mg/dL (0.00-0.90) H Pro-B-Type Natriuretic Peptide 347 pg/mL (0-125) H Total Protein 6.0 G/DL (6.4-8.2) L Albumin 2.6 G/DL (3.4-5.0) L Globulin 3.4 g/dL Albumin/Globulin Ratio 0.8 (1.0-2.7) L Triglycerides Level 33 MG/DL (30-150) Cholesterol Level 95 MG/DL (< 200) LDL Cholesterol 36 mg/dL (<100) HDL Cholesterol 39 MG/DL (40-60) L Cholesterol/HDL Ratio 2.4 (3.3-4.4) L Assessment Additional Comments Abdominal pain resolved Plan Additional Comments does not require surgery Jackie Mckeon MD May 20, 2018 12:51
--- NOTE | 2018-05-20 13:45 | History and Physical Report ---
DATE OF ADMISSION: 05/18/2018 HISTORY OF PRESENT ILLNESS: The patient is being admitted for 10 days post stroke, for fever, and upper abdominal pain. The CT showed a distended gallbladder with pericolic fluid and low potassium as well. Dr. Mckeon is consulted by the ER physician. Dr. Mckeon, was on-call. The patient has been having epigastric pain for couple of days. According to the nurse asked by the security expert, the patient . The patient has also been having nausea and chills, status post CVA with right two weeks ago. We cannot get any more history from the patient. PAST MEDICAL HISTORY: History of status post CVA, hypertension, low back pain, and degenerative joint disease. PAST SURGICAL HISTORY: Hip surgery. MEDICATIONS: Flexeril, Neurontin, and Lidoderm patch. ALLERGIES: Navarro and aspirin. FAMILY HISTORY: Noncontributory. SOCIAL HISTORY: The patient has no history of smoking, alcohol, or illicit drug. REVIEW OF SYSTEMS: HEENT: Denies headaches. PULMONARY: Denies shortness of breath. Denies cough. CARDIOVASCULAR: Denies chest pain. No orthopnea. GASTROINTESTINAL: reports epigastric pain for couple of days associated with nausea. EXTREMITIES: Does have . NEUROLOGIC: No change in vision or speech pattern. However, the patient does have right paresis two weeks ago when she was diagnosed with a stroke at [facility]. PHYSICAL EXAMINATION: VITAL SIGNS: Temperature , pulse is 75, and blood pressure 139/78. HEENT: PERRLA. NECK: Supple. No lymphadenopathy. CHEST: Clear to auscultation. GASTROINTESTINAL: The patient does have mild epigastric tenderness. No rebound. EXTREMITIES: No edema. Reflexes equal on both sides. . LABORATORY DATA: Sodium 134, potassium 3.2, glucose 121. AST 241 and ALT 250. ASSESSMENT AND PLAN: 1. Elevated LFT. 2. Abdominal pain. 3. Sepsis. 4. Electrolyte imbalance. 5. . 6. Recent stroke. I have asked Dr. Matta, to see the patient for possible cardiac clearance in case Dr. Mckeon wants to do any surgical history. The patient has been having chest pain as well so, charge of clearing for the surgery if needed. Dr. Mckeon has also case as well as DrKelly , Dr. Quinn, Dr. Langley for pain control and Dr. Ryland Grigsby to rule out any infectious etiology. Mari Levy M.D. DR: ASHLEY JOB#: [id number] CC:
--- NOTE | 2018-05-20 14:30 | General Progress Note ---
Assessment/Plan Assessment/Plan (1) Abdominal pain (2) Cholecystis Patient to be continued on Morphine as needed D/w Dr. Langley and he concurred. Subjective Date patient seen: May 20, 2018 Time patient seen: 01:45 - pm Constitutional: Reports: weakness HEENT: Reports: no symptoms Cardiovascular: Reports: no symptoms Respiratory: Reports: no symptoms Gastrointestinal/Abdominal: Reports: abdominal pain Genitourinary: Reports: no symptoms Neurologic/Psychiatric: Reports: weakness Endocrine: Reports: no symptoms Hematologic/Lymphatic: Reports: no symptoms Allergies: Coded Allergies: ASPIRIN (Verified Allergy, Intermediate, Hives, 05/19/18) Navarro (Verified Allergy, Unknown, 05/19/18) Subjective Patient is sitting up in bed nurse at bed side. C/o pain using Tylenol. Has not requested Morphine. Objective Last 24 Hour Vital Signs Date Time Temp Pulse Resp B/P (MAP) Pulse Ox O2 Delivery O2 Flow Rate FiO2 05/20/18 12:00 97.8 79 19 123/72 (89) 96 97.8 05/20/18 09:00 Room Air 05/20/18 08:00 98.4 75 19 121/69 (86) 94 98.4 05/20/18 08:00 70 05/20/18 04:00 98.0 77 19 111/61 (78) 94 98.0 05/20/18 04:00 77 05/20/18 00:00 79 05/20/18 00:00 96.5 78 18 115/69 (84) 95 96.5 05/19/18 21:00 82 05/19/18 21:00 Room Air 05/19/18 20:00 97.7 80 20 122/70 (87) 95 97.7 05/19/18 19:51 96 Nasal Cannula 2.0 28 05/19/18 19:51 Nasal Cannula 2.0 28 05/19/18 16:16 97.7 60 20 142/71 (94) 97 97.7 05/19/18 16:02 Nasal Cannula 2.0 28 05/19/18 16:01 97 Nasal Cannula 2.0 28 05/19/18 16:00 73 Intake and Output 05/19/18 05/20/18 19:00 07:00 Intake Total 520.0 ml 972.0 ml Balance 520.0 ml 972.0 ml Intake Oral 240 ml IV Total 280.0 ml 972.0 ml # Voids 2 2 # Bowel Movements 1 Laboratory Tests 05/20/18 05:10: White Blood Count 6.9, Red Blood Count 4.07L, Hemoglobin 12.4, Hematocrit 37.1, Mean Corpuscular Volume 91, Mean Corpuscular Hemoglobin 30.4, Mean Corpuscular Hemoglobin Concent 33.3, Red Cell Distribution Width 11.8, Platelet Count 108L, Mean Platelet Volume 9.9, Neutrophils (%) (Auto) 82.0H, Lymphocytes (%) (Auto) 7.6L, Monocytes (%) (Auto) 6.9, Eosinophils (%) (Auto) 3.2H, Basophils (%) (Auto ) 0.3, Sodium Level 137, Potassium Level 3.7, Chloride Level 106, Carbon Dioxide Level 23, Anion Gap 8, Blood Urea Nitrogen 7, Creatinine 0.7, Estimat Glomerular Filtration Rate , Glucose Level 155H, Calcium Level 7.9L, Phosphorus Level 1.7L, Magnesium Level 1.7L, Total Bilirubin 0.7, Aspartate Amino Transf ( AST/SGOT) 95H, Alanine Aminotransferase (ALT/SGPT) 167H, Alkaline Phosphatase 437H, C-Reactive Protein, Quantitative 5.3H, Pro-B-Type Natriuretic Peptide 347H , Total Protein 6.0L, Albumin 2.6L, Globulin 3.4, Albumin/Globulin Ratio 0.8L, Triglycerides Level 33, Cholesterol Level 95, LDL Cholesterol 36, HDL Cholesterol 39L, Cholesterol/HDL Ratio 2.4L Height (Feet): 5 Height (Inches): 3.00 Weight (Pounds): 123 General Appearance: no apparent distress, alert EENT: PERRL/EOMI, normal ENT inspection Neck: non-tender, normal alignment Cardiovascular: normal rate, regular rhythm Respiratory/Chest: lungs clear, normal breath sounds Abdomen: tender Extremities: non-tender Edema: trace edema Neurologic: alert, responsive Skin: normal pigmentation Romulo Newell May 20, 2018 14:29
[2018-05-20 16:00] VITALS: BP 105/58
--- NOTE | 2018-05-20 16:45 | Consultation ---
DATE OF CONSULTATION: 05/19/2018 NOTE: "POOR AUDIO QUALITY" INFECTIOUS DISEASES CONSULTATION CONSULTING PHYSICIAN: Ryland Grigsby M.D. PRIMARY ATTENDING PHYSICIAN: Mari Levy M.D. REASON FOR CONSULT: Cholecystitis. HISTORY OF PRESENT ILLNESS: This is an 82-year-old [place] female admitted yesterday because of subjective fever, epigastric pain with radiation to back, and body ache, who was found to have elevation of transaminase and also to have mild leukocytosis. A CT scan of the abdomen and pelvis showed inflammation of gallbladder, but without evidence of gallstone or pericholecystic inflammation. PAST MEDICAL HISTORY: Significant for hypertension, had history of CVA or transient ischemic attack that resolved in 48 hours, she had right-sided weakness, and history of C7 and C8 compression fractures. ALLERGIES: Allergic to aspirin and elmo. MEDICATIONS: Gabapentin, heparin, Zosyn, Protonix, and morphine. SOCIAL HISTORY: and lives at home. Originally from [place]. No history of alcohol, drug abuse, or smoking. REVIEW OF SYSTEMS: Subjective fever as mentioned. Nausea. No vomiting. No coughing. Epigastric pain, tightness. No problem passing urine. PHYSICAL EXAMINATION: VITAL SIGNS: Temperature 97.7 and pulse 80. The patient had tachycardia up to 106 early this morning. Blood pressure 113/75. GENERAL APPEARANCE: No acute distress. HEAD AND NECK: Dry mouth. HEART: Normal rate. Regular. LUNGS: Clear. ABDOMEN: Soft. No significant tenderness. EXTREMITIES: No edema. LABORATORY AND DIAGNOSTIC DATA: Sodium 136, potassium 3.6, chloride 104, bicarbonate 24, BUN 7, creatinine 0.6, glucose 109, bilirubin 0.7, AST 108, ALT 187, and alkaline phosphatase 275. Albumin 2.9. First UA showed hematuria with rbc's too numerous to count. Second UA showed decrease in rbc's in the urine and has also ketones in urine. Chest x-ray, no acute process. CT scan of the abdomen and pelvis showed edematous gallbladder, compression fracture deformities of T7 and T8, mild fullness of left collecting system without obstruction. IMPRESSION: 1. Elevated transaminase, mild leukocytosis, and tachycardia. May have acalculous cholecystitis. 2. Hypertension. 3. Chronic T7-T8 compression fracture. 4. History of TIA. She has good muscle in all extremities. RECOMMENDATION: We will continue with Zosyn. We will follow up cultures including blood and urine. Waiting for GI specialist evaluation for further recommendation. At the end of my exam, I thank Dr. Levy for involving me in the care of this patient. Ryland Grigsby M.D. DR: MEREDITH JOB#: [id number] CC: [place]
--- NOTE | 2018-05-20 16:45 | Consultation ---
DATE OF CONSULTATION: 05/19/2018 HEMATOLOGY/ONCOLOGY CONSULTATION CONSULTING PHYSICIAN: Brady Rod M.D. REQUESTING PHYSICIAN: Mari Levy M.D. REASON FOR THE CONSULTATION: Evaluation of thrombocytopenia. IDENTIFYING DATA: Dear Dr. Levy, The patient is a pleasant 82-year-old female, at this time presents to the ER with increased fever, chills, generalized body aches, prior history of hypertension, as well as CVA, has been vomiting with diarrhea, noted to have increased difficulty with breathing as well. The patient is having chest discomfort and seen by surgical team. Abdominal pain radiating to the back. Denies any bloody stools, bowel movements, presents with urinary urgency and history of prior CVA, and right-sided weakness. She is Tajik speaking. PAST MEDICAL HISTORY: Reviewed, hypertension, right-sided CVA. PAST SURGICAL HISTORY: None reported at this time. ALLERGIES: Aspirin and elmo. FAMILY HISTORY: Noncontributory. REVIEW OF SYSTEMS: CONSTITUTIONAL: Weakness noted in the lower extremity without any stool or urinary incontinence. No fevers, chills, or night sweats. SKIN: No rashes, bumps, or itching. HEENT: No headache, hearing or visual changes. BREASTS: No lumps, pain, or discharge. PULMONARY: No cough, sputum, or shortness of breath. GASTROINTESTINAL: No nausea, vomiting, or diarrhea. GENITOURINARY: No dysuria, frequency, or urgency. MUSCULOSKELETAL: No joint swelling, muscle pain, or trauma. PHYSICAL EXAMINATION: VITAL SIGNS: Reviewed. GENERAL: No acute distress. PULMONARY: Decreased breath sounds. Some crackles noted. CARDIOVASCULAR: Regular rate. No S3 or S4. ABDOMEN: Soft, nontender, and nondistended. EXTREMITIES: No cyanosis, clubbing, or edema noted at this time. LABORATORY DATA: WBC 9.5, hemoglobin 12.3, hematocrit 36, and platelet count 123,000. Chemistry reviewed. BUN of 7 and creatinine 0.6. Calcium 8.6, phosphorus 2.1, and magnesium 1.6. AST 241, currently improved to 108. Troponin 0.015. B12 729. Folic acid 18.0. TSH 0.18. IMAGING: CT scan of the abdomen and pelvis completed, shows compression fracture at T7-T8. Demonstrated on a recent MRI, 1.5 ovarian cyst incidental finding, subcentimeter low attenuation lobe liver lesion. ASSESSMENT AND RECOMMENDATIONS: 1. Thrombocytopenia likely secondary to either viral infection versus medications. In addition, the patient has been started on Zosyn, could contribute to thrombocytopenia, though less likely. Evaluate surface of the liver with an abdominal ultrasound. The ultrasound is completed, results are pending. 2. Leukocytosis likely secondary to stress reaction versus infection. 3. Transaminitis. To obtain ultrasound of the abdomen for further evaluation. 4. CT scan. 5. Pain management, to be seen by Dr. Kimberly Langley. 6. Transaminitis surgically potentially. 7. Chest pain. To be seen by Cardiology for cardiology evaluation. I appreciate the consultation. Brady Rod M.D. DR: SONAL JOB#: [id number] CC:
[2018-05-20 20:00] VITALS: BP 105/59
--- NOTE | 2018-05-20 22:27 | Cardiology Progress Note ---
Assessment/Plan Assessment/Plan 1. Sinus tachycardia, possible sepsis and /or intra-vascular volume depletion, continue hydration and electrolyte correction. 2. Normal LV systolic function. 3. Transaminitis Subjective Subjective Sinus rhythm at 75. Objective Last 24 Hour Vital Signs Date Time Temp Pulse Resp B/P (MAP) Pulse Ox O2 Delivery O2 Flow Rate FiO2 05/20/18 20:00 97.5 62 18 105/59 (74) 96 97.5 05/20/18 19:39 Room Air 05/20/18 19:38 96 Room Air 05/20/18 16:00 75 05/20/18 16:00 97.2 78 22 105/58 (74) 96 97.2 05/20/18 15:32 97.8 05/20/18 15:02 97.8 05/20/18 12:00 97.8 79 19 123/72 (89) 96 97.8 05/20/18 12:00 76 05/20/18 09:00 Room Air 05/20/18 08:00 98.4 75 19 121/69 (86) 94 98.4 05/20/18 08:00 70 05/20/18 04:00 98.0 77 19 111/61 (78) 94 98.0 05/20/18 04:00 77 05/20/18 00:00 79 05/20/18 00:00 96.5 78 18 115/69 (84) 95 96.5 Intake and Output 05/19/18 05/20/18 19:00 07:00 Intake Total 520.0 ml 972.0 ml Balance 520.0 ml 972.0 ml Intake Oral 240 ml IV Total 280.0 ml 972.0 ml # Voids 2 2 # Bowel Movements 1 2D Echo: LVEF 65%, Grade I LVDD, RVSP 32 mmHg Laboratory Tests Test 05/20/18 05:10 White Blood Count 6.9 K/UL (4.8-10.8) Red Blood Count 4.07 M/UL (4.20-5.40) L Hemoglobin 12.4 G/DL (12.0-16.0) Hematocrit 37.1 % (37.0-47.0) Mean Corpuscular Volume 91 FL (80-99) Mean Corpuscular Hemoglobin 30.4 PG (27.0-31.0) Mean Corpuscular Hemoglobin Concent 33.3 G/DL (32.0-36.0) Red Cell Distribution Width 11.8 % (11.6-14.8) Platelet Count 108 K/UL (150-450) L Mean Platelet Volume 9.9 FL (6.5-10.1) Neutrophils (%) (Auto) 82.0 % (45.0-75.0) H Lymphocytes (%) (Auto) 7.6 % (20.0-45.0) L Monocytes (%) (Auto) 6.9 % (1.0-10.0) Eosinophils (%) (Auto) 3.2 % (0.0-3.0) H Basophils (%) (Auto) 0.3 % (0.0-2.0) Sodium Level 137 MMOL/L (136-145) Potassium Level 3.7 MMOL/L (3.5-5.1) Chloride Level 106 MMOL/L (98-107) Carbon Dioxide Level 23 MMOL/L (21-32) Anion Gap 8 mmol/L (5-15) Blood Urea Nitrogen 7 mg/dL (7-18) Creatinine 0.7 MG/DL (0.55-1.30) Estimat Glomerular Filtration Rate mL/min (>60) Glucose Level 155 MG/DL (74-106) H Calcium Level 7.9 MG/DL (8.5-10.1) L Phosphorus Level 1.7 MG/DL (2.5-4.9) L Magnesium Level 1.7 MG/DL (1.8-2.4) L Total Bilirubin 0.7 MG/DL (0.2-1.0) Aspartate Amino Transf (AST/SGOT) 95 U/L (15-37) H Alanine Aminotransferase (ALT/SGPT) 167 U/L (12-78) H Alkaline Phosphatase 437 U/L (46-116) H C-Reactive Protein, Quantitative 5.3 mg/dL (0.00-0.90) H Pro-B-Type Natriuretic Peptide 347 pg/mL (0-125) H Total Protein 6.0 G/DL (6.4-8.2) L Albumin 2.6 G/DL (3.4-5.0) L Globulin 3.4 g/dL Albumin/Globulin Ratio 0.8 (1.0-2.7) L Triglycerides Level 33 MG/DL (30-150) Cholesterol Level 95 MG/DL (< 200) LDL Cholesterol 36 mg/dL (<100) HDL Cholesterol 39 MG/DL (40-60) L Cholesterol/HDL Ratio 2.4 (3.3-4.4) L Microbiology Date/Time Source Procedure Growth Status 05/18/18 22:05 Blood Blood Culture - Preliminary NO GROWTH AFTER 24 HOURS Resulted 05/18/18 21:50 Blood Blood Culture - Preliminary NO GROWTH AFTER 24 HOURS Resulted 05/19/18 09:10 Urine,Clean Catch Urine Culture - Preliminary NO GROWTH AFTER 24 HOURS Resulted Objective HEENT: Atraumatic, normocephalic, PERRLA, EOMI. NECK: Negative JVD, no caroid bruit. PULMONARY: Decreased breath sounds. CARDIOVASCULAR: Regular rate, rhythm. Normal S1S2, no murmurs, gallops or rubs. ABDOMEN: Soft, nontender, and nondistended, no hepatosplenomegaly. EXTREMITIES: No cyanosis, clubbing, or edema. Ra Matta MD May 20, 2018 22:27
--- NOTE | 2018-05-20 22:40 | General Progress Note ---
Assessment/Plan Assessment/Plan Anxiety d/o Ativan prn Provided ro/st Subjective Date patient seen: May 20, 2018 Neurologic/Psychiatric: Reports: anxiety Allergies: Coded Allergies: ASPIRIN (Verified Allergy, Intermediate, Hives, 05/19/18) [place] (Verified Allergy, Unknown, 05/19/18) Objective Last 24 Hour Vital Signs Date Time Temp Pulse Resp B/P (MAP) Pulse Ox O2 Delivery O2 Flow Rate FiO2 05/20/18 20:00 97.5 62 18 105/59 (74) 96 97.5 05/20/18 19:39 Room Air 05/20/18 19:38 96 Room Air 05/20/18 16:00 75 05/20/18 16:00 97.2 78 22 105/58 (74) 96 97.2 05/20/18 15:32 97.8 05/20/18 15:02 97.8 05/20/18 12:00 97.8 79 19 123/72 (89) 96 97.8 05/20/18 12:00 76 05/20/18 09:00 Room Air 05/20/18 08:00 98.4 75 19 121/69 (86) 94 98.4 05/20/18 08:00 70 05/20/18 04:00 98.0 77 19 111/61 (78) 94 98.0 05/20/18 04:00 77 05/20/18 00:00 79 05/20/18 00:00 96.5 78 18 115/69 (84) 95 96.5 Intake and Output 05/19/18 05/20/18 19:00 07:00 Intake Total 520.0 ml 972.0 ml Balance 520.0 ml 972.0 ml Intake Oral 240 ml IV Total 280.0 ml 972.0 ml # Voids 2 2 # Bowel Movements 1 Laboratory Tests 05/20/18 05:10: White Blood Count 6.9, Red Blood Count 4.07L, Hemoglobin 12.4, Hematocrit 37.1, Mean Corpuscular Volume 91, Mean Corpuscular Hemoglobin 30.4, Mean Corpuscular Hemoglobin Concent 33.3, Red Cell Distribution Width 11.8, Platelet Count 108L, Mean Platelet Volume 9.9, Neutrophils (%) (Auto) 82.0H, Lymphocytes (%) (Auto) 7.6L, Monocytes (%) (Auto) 6.9, Eosinophils (%) (Auto) 3.2H, Basophils (%) (Auto ) 0.3, Sodium Level 137, Potassium Level 3.7, Chloride Level 106, Carbon Dioxide Level 23, Anion Gap 8, Blood Urea Nitrogen 7, Creatinine 0.7, Estimat Glomerular Filtration Rate , Glucose Level 155H, Calcium Level 7.9L, Phosphorus Level 1.7L, Magnesium Level 1.7L, Total Bilirubin 0.7, Aspartate Amino Transf ( AST/SGOT) 95H, Alanine Aminotransferase (ALT/SGPT) 167H, Alkaline Phosphatase 437H, C-Reactive Protein, Quantitative 5.3H, Pro-B-Type Natriuretic Peptide 347H , Total Protein 6.0L, Albumin 2.6L, Globulin 3.4, Albumin/Globulin Ratio 0.8L, Triglycerides Level 33, Cholesterol Level 95, LDL Cholesterol 36, HDL Cholesterol 39L, Cholesterol/HDL Ratio 2.4L Height (Feet): 5 Height (Inches): 3.00 Weight (Pounds): 134 General Appearance: no apparent distress, alert Alesia Cardenas MD May 20, 2018 22:40
--- NOTE | 2018-05-20 22:49 | General Progress Note ---
Assessment/Plan Problem List: (1) GERD (gastroesophageal reflux disease) ICD Codes: K21.9 - Gastro-esophageal reflux disease without esophagitis SNOMED: 014837687 (2) Abdominal pain ICD Codes: R10.9 - Unspecified abdominal pain SNOMED: 43083162 (3) Hypoalbuminemia ICD Codes: E88.09 - Other disorders of plasma-protein metabolism, not elsewhere classified SNOMED: 239506229 (4) Back pain ICD Codes: M54.9 - Dorsalgia, unspecified SNOMED: 230019069 (5) Degenerative disc disease, lumbar ICD Codes: M51.36 - Other intervertebral disc degeneration, lumbar region SNOMED: 24534894 (6) Dehydration ICD Codes: E86.0 - Dehydration SNOMED: 60273079 (7) Sepsis ICD Codes: A41.9 - Sepsis, unspecified organism SNOMED: 98522846 Status: progressing Assessment/Plan afebrile abdominal pain atypical cp djd Subjective ROS Limited/Unobtainable: Yes Allergies: Coded Allergies: ASPIRIN (Verified Allergy, Intermediate, Hives, 05/19/18) Navarro (Verified Allergy, Unknown, 05/19/18) Objective Last 24 Hour Vital Signs Date Time Temp Pulse Resp B/P (MAP) Pulse Ox O2 Delivery O2 Flow Rate FiO2 05/20/18 20:00 97.5 62 18 105/59 (74) 96 97.5 05/20/18 19:39 Room Air 05/20/18 19:38 96 Room Air 05/20/18 16:00 75 05/20/18 16:00 97.2 78 22 105/58 (74) 96 97.2 05/20/18 15:32 97.8 05/20/18 15:02 97.8 05/20/18 12:00 97.8 79 19 123/72 (89) 96 97.8 05/20/18 12:00 76 05/20/18 09:00 Room Air 05/20/18 08:00 98.4 75 19 121/69 (86) 94 98.4 05/20/18 08:00 70 05/20/18 04:00 98.0 77 19 111/61 (78) 94 98.0 05/20/18 04:00 77 05/20/18 00:00 79 05/20/18 00:00 96.5 78 18 115/69 (84) 95 96.5 Intake and Output 05/19/18 05/20/18 19:00 07:00 Intake Total 520.0 ml 972.0 ml Balance 520.0 ml 972.0 ml Intake Oral 240 ml IV Total 280.0 ml 972.0 ml # Voids 2 2 # Bowel Movements 1 Laboratory Tests 05/20/18 05:10: White Blood Count 6.9, Red Blood Count 4.07L, Hemoglobin 12.4, Hematocrit 37.1, Mean Corpuscular Volume 91, Mean Corpuscular Hemoglobin 30.4, Mean Corpuscular Hemoglobin Concent 33.3, Red Cell Distribution Width 11.8, Platelet Count 108L, Mean Platelet Volume 9.9, Neutrophils (%) (Auto) 82.0H, Lymphocytes (%) (Auto) 7.6L, Monocytes (%) (Auto) 6.9, Eosinophils (%) (Auto) 3.2H, Basophils (%) (Auto ) 0.3, Sodium Level 137, Potassium Level 3.7, Chloride Level 106, Carbon Dioxide Level 23, Anion Gap 8, Blood Urea Nitrogen 7, Creatinine 0.7, Estimat Glomerular Filtration Rate , Glucose Level 155H, Calcium Level 7.9L, Phosphorus Level 1.7L, Magnesium Level 1.7L, Total Bilirubin 0.7, Aspartate Amino Transf ( AST/SGOT) 95H, Alanine Aminotransferase (ALT/SGPT) 167H, Alkaline Phosphatase 437H, C-Reactive Protein, Quantitative 5.3H, Pro-B-Type Natriuretic Peptide 347H , Total Protein 6.0L, Albumin 2.6L, Globulin 3.4, Albumin/Globulin Ratio 0.8L, Triglycerides Level 33, Cholesterol Level 95, LDL Cholesterol 36, HDL Cholesterol 39L, Cholesterol/HDL Ratio 2.4L Height (Feet): 5 Height (Inches): 3.00 Weight (Pounds): 134 Neck: supple Cardiovascular: normal rate Respiratory/Chest: lungs clear Mari Levy MD May 20, 2018 22:49
[2018-05-21] VITALS: BP 125/68
[2018-05-21] MEDS: Piperacillin/Tazobactam 3.375 GM in D5W 110 ML IVPB SCH (03:31)
[2018-05-21 04:00] VITALS: BP 111/66
[2018-05-21 06:11] LABS: BASOPHILS % (AUTO) 0.3 % (0.0-2.0); EOSINOPHILS % (AUTO) 4.9 % (0.0-3.0); HEMATOCRIT 37.1 % (37.0-47.0); HEMOGLOBIN 12.4 G/DL (12.0-16.0); MEAN CORPUSCULAR VOLUME 91 FL (80-99); MONOCYTES % (AUTO) 5.5 % (1.0-10.0); NEUTROPHILS % (AUTO) 81.3 % (45.0-75.0); PLATELET COUNT 115 K/UL (150-450); RED BLOOD COUNT 4.06 M/UL (4.20-5.40); RED CELL DISTRIBUTION WIDTH 11.9 % (11.6-14.8); WHITE BLOOD COUNT 7.5 K/UL (4.8-10.8)
[2018-05-21 06:28] LABS: ALANINE AMINOTRANSFERASE 171 U/L (12-78); ALBUMIN 2.6 G/DL (3.4-5.0); ALBUMIN/GLOBULIN RATIO 0.7 (1.0-2.7); ALKALINE PHOSPHATASE 632 U/L (46-116); ANION GAP 9 mmol/L (5-15); ASPARTATE AMINO TRANSFERASE 85 U/L (15-37); BILIRUBIN,TOTAL 1.3 MG/DL (0.2-1.0); BLOOD UREA NITROGEN 5 mg/dL (7-18); CALCIUM 7.7 MG/DL (8.5-10.1); CARBON DIOXIDE 22 MMOL/L (21-32); CHLORIDE 107 MMOL/L (98-107); CREATININE 0.6 MG/DL (0.55-1.30); PHOSPHORUS 2.1 MG/DL (2.5-4.9); POTASSIUM 3.3 MMOL/L (3.5-5.1); SODIUM 138 MMOL/L (136-145)
[2018-05-21 06:29] LABS: GAMMA GLUTAMYL TRANSPEPTIDASE 375 U/L (5-85)
[2018-05-21 06:31] LABS: BILIRUBIN,DIRECT 0.7 MG/DL (0.0-0.3)
[2018-05-21 08:00] VITALS: BP 123/76
[2018-05-21] MEDS: Heparin 5000 units/ml inj SUBQ SCH ×2 (09:00→21:00)
--- NOTE | 2018-05-21 09:17 | General Progress Note ---
Assessment/Plan Assessment/Plan (1) Abdominal pain (2) Cholecystis Patient to be continued on Morphine as needed D/w Dr. Langley and he concurred. Subjective Date patient seen: May 21, 2018 Time patient seen: 07:30 - am Allergies: Coded Allergies: ASPIRIN (Verified Allergy, Intermediate, Hives, 05/19/18) Navarro (Verified Allergy, Unknown, 05/19/18) Subjective Constitutional: Reports: weakness HEENT: Reports: no symptoms Cardiovascular: Reports: no symptoms Respiratory: Reports: no symptoms Gastrointestinal/Abdominal: Reports: abdominal pain Genitourinary: Reports: no symptoms Neurologic/Psychiatric: Reports: weakness Endocrine: Reports: no symptoms Hematologic/Lymphatic: Reports: no symptoms Subjective: Patient is laying in bed showing no signs of pain or distress. Pain has been subsiding. Objective Last 24 Hour Vital Signs Date Time Temp Pulse Resp B/P (MAP) Pulse Ox O2 Delivery O2 Flow Rate FiO2 05/21/18 08:00 98.2 75 18 123/76 (92) 93 98.2 05/21/18 04:00 113 05/21/18 04:00 99.0 86 18 111/66 (81) 93 99.0 05/21/18 00:00 78 05/21/18 00:00 99.1 79 20 125/68 (87) 94 99.1 05/20/18 21:00 Room Air 05/20/18 20:00 97.5 62 18 105/59 (74) 96 97.5 05/20/18 20:00 73 05/20/18 19:39 Room Air 05/20/18 19:38 96 Room Air 05/20/18 16:00 75 05/20/18 16:00 97.2 78 22 105/58 (74) 96 97.2 05/20/18 15:32 97.8 05/20/18 15:02 97.8 05/20/18 12:00 97.8 79 19 123/72 (89) 96 97.8 05/20/18 12:00 76 Intake and Output 05/20/18 05/21/18 19:00 07:00 Intake Total 860 ml Output Total 750 ml Balance 860 ml -750 ml Intake Oral 860 ml Output Urine Total 750 ml # Voids 3 3 # Bowel Movements 1 Laboratory Tests 05/21/18 05:05: White Blood Count 7.5, Red Blood Count 4.06L, Hemoglobin 12.4, Hematocrit 37.1, Mean Corpuscular Volume 91, Mean Corpuscular Hemoglobin 30.6, Mean Corpuscular Hemoglobin Concent 33.5, Red Cell Distribution Width 11.9, Platelet Count 115L, Mean Platelet Volume 11.0H, Neutrophils (%) (Auto) 81.3H, Lymphocytes (%) (Auto ) 8.0L, Monocytes (%) (Auto) 5.5, Eosinophils (%) (Auto) 4.9H, Basophils (%) ( Auto) 0.3, Sodium Level 138, Potassium Level 3.3L, Chloride Level 107, Carbon Dioxide Level 22, Anion Gap 9, Blood Urea Nitrogen 5L, Creatinine 0.6, Estimat Glomerular Filtration Rate , Glucose Level 107H, Calcium Level 7.7L, Phosphorus Level 2.1L, Magnesium Level 2.0, Total Bilirubin 1.3H, Direct Bilirubin 0.7H, Gamma Glutamyl Transpeptidase 375H, Aspartate Amino Transf (AST/SGOT) 85H, Alanine Aminotransferase (ALT/SGPT) 171H, Alkaline Phosphatase 632H, Pro-B-Type Natriuretic Peptide 372H, Total Protein 6.1L, Albumin 2.6L, Globulin 3.5, Albumin/Globulin Ratio 0.7L Height (Feet): 5 Height (Inches): 3.00 Weight (Pounds): 134 Objective General Appearance: no apparent distress, alert EENT: PERRL/EOMI, normal ENT inspection Neck: non-tender, normal alignment Cardiovascular: normal rate, regular rhythm Respiratory/Chest: lungs clear, normal breath sounds Abdomen: tender Extremities: non-tender Edema: trace edema Neurologic: alert, responsive Skin: normal pigmentation Romulo Newell May 21, 2018 09:17
[2018-05-21] MEDS: Pantoprazole Inj IVP SCH (09:18)
--- NOTE | 2018-05-21 09:33 | Nephrology Progress Note ---
Assessment/Plan Problem List: (1) Dehydration (2) Hematuria (3) Cholecystitis (4) Abdominal pain (5) Hypoalbuminemia Assessment dehydration- High LFTs , Cholecyctitis HTN Hematuria Low Albumin Plan Zosyn to Levaquin as cultures negative K and Phos IV low fat diest Protonix IV monitor LFTs abd DAWNA per GI waiting urine culture results per orders Subjective ROS Limited/Unobtainable: No Constitutional: Reports: other - feels better Subjective no abd pain Objective Objective Last 24 Hour Vital Signs Date Time Temp Pulse Resp B/P (MAP) Pulse Ox O2 Delivery O2 Flow Rate FiO2 05/21/18 08:00 98.2 75 18 123/76 (92) 93 98.2 05/21/18 04:00 113 05/21/18 04:00 99.0 86 18 111/66 (81) 93 99.0 05/21/18 00:00 78 05/21/18 00:00 99.1 79 20 125/68 (87) 94 99.1 05/20/18 21:00 Room Air 05/20/18 20:00 97.5 62 18 105/59 (74) 96 97.5 05/20/18 20:00 73 05/20/18 19:39 Room Air 05/20/18 19:38 96 Room Air 05/20/18 16:00 75 05/20/18 16:00 97.2 78 22 105/58 (74) 96 97.2 05/20/18 15:32 97.8 05/20/18 15:02 97.8 05/20/18 12:00 97.8 79 19 123/72 (89) 96 97.8 05/20/18 12:00 76 Intake and Output 05/20/18 05/21/18 19:00 07:00 Intake Total 860 ml Output Total 750 ml Balance 860 ml -750 ml Intake Oral 860 ml Output Urine Total 750 ml # Voids 3 3 # Bowel Movements 1 Laboratory Tests 05/21/18 05:05: White Blood Count 7.5, Red Blood Count 4.06L, Hemoglobin 12.4, Hematocrit 37.1, Mean Corpuscular Volume 91, Mean Corpuscular Hemoglobin 30.6, Mean Corpuscular Hemoglobin Concent 33.5, Red Cell Distribution Width 11.9, Platelet Count 115L, Mean Platelet Volume 11.0H, Neutrophils (%) (Auto) 81.3H, Lymphocytes (%) (Auto ) 8.0L, Monocytes (%) (Auto) 5.5, Eosinophils (%) (Auto) 4.9H, Basophils (%) ( Auto) 0.3, Sodium Level 138, Potassium Level 3.3L, Chloride Level 107, Carbon Dioxide Level 22, Anion Gap 9, Blood Urea Nitrogen 5L, Creatinine 0.6, Estimat Glomerular Filtration Rate , Glucose Level 107H, Calcium Level 7.7L, Phosphorus Level 2.1L, Magnesium Level 2.0, Total Bilirubin 1.3H, Direct Bilirubin 0.7H, Gamma Glutamyl Transpeptidase 375H, Aspartate Amino Transf (AST/SGOT) 85H, Alanine Aminotransferase (ALT/SGPT) 171H, Alkaline Phosphatase 632H, Pro-B-Type Natriuretic Peptide 372H, Total Protein 6.1L, Albumin 2.6L, Globulin 3.5, Albumin/Globulin Ratio 0.7L Height (Feet): 5 Height (Inches): 3.00 Weight (Pounds): 134 General Appearance: no apparent distress Cardiovascular: normal rate Respiratory/Chest: lungs clear Abdomen: soft Joshua Quinn MD May 21, 2018 09:33
[2018-05-21] MEDS ORDERED: Potassium Phosphate 30 MM in NS 275 ML IV ONE (10:00)
--- NOTE | 2018-05-21 10:42 | General Progress Note ---
Assessment/Plan Problem List: (1) GERD (gastroesophageal reflux disease) ICD Codes: K21.9 - Gastro-esophageal reflux disease without esophagitis SNOMED: 805455362 (2) Abdominal pain ICD Codes: R10.9 - Unspecified abdominal pain SNOMED: 01795218 (3) Hypoalbuminemia ICD Codes: E88.09 - Other disorders of plasma-protein metabolism, not elsewhere classified SNOMED: 551634069 (4) Back pain ICD Codes: M54.9 - Dorsalgia, unspecified SNOMED: 882531075 (5) Degenerative disc disease, lumbar ICD Codes: M51.36 - Other intervertebral disc degeneration, lumbar region SNOMED: 58927882 (6) Dehydration ICD Codes: E86.0 - Dehydration SNOMED: 80287707 (7) Sepsis ICD Codes: A41.9 - Sepsis, unspecified organism SNOMED: 98054949 Status: progressing Assessment/Plan afebrile abdominal pain atypical cp neg trop favor conservative tx reviewed chart and labs pain is improving Subjective ROS Limited/Unobtainable: Yes Allergies: Coded Allergies: ASPIRIN (Verified Allergy, Intermediate, Hives, 05/19/18) [place] (Verified Allergy, Unknown, 05/19/18) Objective Last 24 Hour Vital Signs Date Time Temp Pulse Resp B/P (MAP) Pulse Ox O2 Delivery O2 Flow Rate FiO2 05/21/18 09:00 Room Air 05/21/18 08:00 98.2 75 18 123/76 (92) 93 98.2 05/21/18 04:00 113 05/21/18 04:00 99.0 86 18 111/66 (81) 93 99.0 05/21/18 00:00 78 05/21/18 00:00 99.1 79 20 125/68 (87) 94 99.1 05/20/18 21:00 Room Air 05/20/18 20:00 97.5 62 18 105/59 (74) 96 97.5 05/20/18 20:00 73 05/20/18 19:39 Room Air 05/20/18 19:38 96 Room Air 05/20/18 16:00 75 05/20/18 16:00 97.2 78 22 105/58 (74) 96 97.2 05/20/18 15:32 97.8 05/20/18 15:02 97.8 05/20/18 12:00 97.8 79 19 123/72 (89) 96 97.8 05/20/18 12:00 76 Intake and Output 05/20/18 05/21/18 19:00 07:00 Intake Total 860 ml Output Total 750 ml Balance 860 ml -750 ml Intake Oral 860 ml Output Urine Total 750 ml # Voids 3 3 # Bowel Movements 1 Laboratory Tests 05/21/18 05:05: White Blood Count 7.5, Red Blood Count 4.06L, Hemoglobin 12.4, Hematocrit 37.1, Mean Corpuscular Volume 91, Mean Corpuscular Hemoglobin 30.6, Mean Corpuscular Hemoglobin Concent 33.5, Red Cell Distribution Width 11.9, Platelet Count 115L, Mean Platelet Volume 11.0H, Neutrophils (%) (Auto) 81.3H, Lymphocytes (%) (Auto ) 8.0L, Monocytes (%) (Auto) 5.5, Eosinophils (%) (Auto) 4.9H, Basophils (%) ( Auto) 0.3, Sodium Level 138, Potassium Level 3.3L, Chloride Level 107, Carbon Dioxide Level 22, Anion Gap 9, Blood Urea Nitrogen 5L, Creatinine 0.6, Estimat Glomerular Filtration Rate , Glucose Level 107H, Calcium Level 7.7L, Phosphorus Level 2.1L, Magnesium Level 2.0, Total Bilirubin 1.3H, Direct Bilirubin 0.7H, Gamma Glutamyl Transpeptidase 375H, Aspartate Amino Transf (AST/SGOT) 85H, Alanine Aminotransferase (ALT/SGPT) 171H, Alkaline Phosphatase 632H, C-Reactive Protein, Quantitative 3.2H, Pro-B-Type Natriuretic Peptide 372H, Total Protein 6.1L, Albumin 2.6L, Globulin 3.5, Albumin/Globulin Ratio 0.7L Height (Feet): 5 Height (Inches): 3.00 Weight (Pounds): 134 Mari Levy MD May 21, 2018 10:42
--- NOTE | 2018-05-21 11:52 | GI Progress Note ---
Assessment/Plan Problems: (1) Abdominal pain ICD Codes: R10.9 - Unspecified abdominal pain SNOMED: 29815593 (2) GERD (gastroesophageal reflux disease) ICD Codes: K21.9 - Gastro-esophageal reflux disease without esophagitis SNOMED: 618953361 (3) Cholecystitis ICD Codes: K81.9 - Cholecystitis, unspecified SNOMED: 23295234 Status: stable Status Narrative Discussed with Dr. Swenson. Assessment/Plan abdominal US reviewed >> Distended gallbladder. Equivocally slightly coarsened slightly increased hepatic echogenicity, if real could indicate hepatocellular disease, otherwise nonspecific. >> will order HIDA surgical recs reviewed >> no intervention LFT elevation >> possible hepatocellular disease epigastric pain resolved advance to regular diet fu cardiology recs for CP ppi BID zofran prn electrolyte correction pain mgmt fu labs The patient was seen and examined at bedside and all new and available data was reviewed in the patients chart. I agree with the above findings, impression and plan. (Patient seen earlier today. Signature stamp does not reflect patient encounter time.). - Cali Swenson MD Subjective Subjective epigastric pain resolved wants to go home decreased appetite Objective Last 24 Hour Vital Signs Date Time Temp Pulse Resp B/P (MAP) Pulse Ox O2 Delivery O2 Flow Rate FiO2 05/21/18 09:00 Room Air 05/21/18 08:00 79 05/21/18 08:00 98.2 75 18 123/76 (92) 93 98.2 05/21/18 04:00 113 05/21/18 04:00 99.0 86 18 111/66 (81) 93 99.0 05/21/18 00:00 78 05/21/18 00:00 99.1 79 20 125/68 (87) 94 99.1 05/20/18 21:00 Room Air 05/20/18 20:00 97.5 62 18 105/59 (74) 96 97.5 05/20/18 20:00 73 05/20/18 19:39 Room Air 05/20/18 19:38 96 Room Air 05/20/18 16:00 75 05/20/18 16:00 97.2 78 22 105/58 (74) 96 97.2 05/20/18 15:32 97.8 05/20/18 15:02 97.8 05/20/18 12:00 97.8 79 19 123/72 (89) 96 97.8 05/20/18 12:00 76 Intake and Output 05/20/18 05/21/18 19:00 07:00 Intake Total 860 ml Output Total 750 ml Balance 860 ml -750 ml Intake Oral 860 ml Output Urine Total 750 ml # Voids 3 3 # Bowel Movements 1 Laboratory Tests Test 05/21/18 05:05 White Blood Count 7.5 K/UL (4.8-10.8) Red Blood Count 4.06 M/UL (4.20-5.40) L Hemoglobin 12.4 G/DL (12.0-16.0) Hematocrit 37.1 % (37.0-47.0) Mean Corpuscular Volume 91 FL (80-99) Mean Corpuscular Hemoglobin 30.6 PG (27.0-31.0) Mean Corpuscular Hemoglobin Concent 33.5 G/DL (32.0-36.0) Red Cell Distribution Width 11.9 % (11.6-14.8) Platelet Count 115 K/UL (150-450) L Mean Platelet Volume 11.0 FL (6.5-10.1) H Neutrophils (%) (Auto) 81.3 % (45.0-75.0) H Lymphocytes (%) (Auto) 8.0 % (20.0-45.0) L Monocytes (%) (Auto) 5.5 % (1.0-10.0) Eosinophils (%) (Auto) 4.9 % (0.0-3.0) H Basophils (%) (Auto) 0.3 % (0.0-2.0) Sodium Level 138 MMOL/L (136-145) Potassium Level 3.3 MMOL/L (3.5-5.1) L Chloride Level 107 MMOL/L (98-107) Carbon Dioxide Level 22 MMOL/L (21-32) Anion Gap 9 mmol/L (5-15) Blood Urea Nitrogen 5 mg/dL (7-18) L Creatinine 0.6 MG/DL (0.55-1.30) Estimat Glomerular Filtration Rate mL/min (>60) Glucose Level 107 MG/DL (74-106) H Calcium Level 7.7 MG/DL (8.5-10.1) L Phosphorus Level 2.1 MG/DL (2.5-4.9) L Magnesium Level 2.0 MG/DL (1.8-2.4) Total Bilirubin 1.3 MG/DL (0.2-1.0) H Direct Bilirubin 0.7 MG/DL (0.0-0.3) H Gamma Glutamyl Transpeptidase 375 U/L (5-85) H Aspartate Amino Transf (AST/SGOT) 85 U/L (15-37) H Alanine Aminotransferase (ALT/SGPT) 171 U/L (12-78) H Alkaline Phosphatase 632 U/L (46-116) H C-Reactive Protein, Quantitative 3.2 mg/dL (0.00-0.90) H Pro-B-Type Natriuretic Peptide 372 pg/mL (0-125) H Total Protein 6.1 G/DL (6.4-8.2) L Albumin 2.6 G/DL (3.4-5.0) L Globulin 3.5 g/dL Albumin/Globulin Ratio 0.7 (1.0-2.7) L Height (Feet): 5 Height (Inches): 3.00 Weight (Pounds): 134 General Appearance: WD/WN, no apparent distress, alert Cardiovascular: normal rate Respiratory/Chest: normal breath sounds, no respiratory distress Abdominal Exam: normal bowel sounds, non tender, soft Extremities: non-tender Holly Mckee NP May 21, 2018 11:52
[2018-05-21 12:00] VITALS: BP 116/76
--- NOTE | 2018-05-21 13:18 | General Surgery Progress Note ---
General Surgery-Progress Note Subjective Symptoms: improved Objective Last 24 Hour Vital Signs Date Time Temp Pulse Resp B/P (MAP) Pulse Ox O2 Delivery O2 Flow Rate FiO2 05/21/18 09:00 Room Air 05/21/18 08:00 79 05/21/18 08:00 98.2 75 18 123/76 (92) 93 98.2 05/21/18 04:00 113 05/21/18 04:00 99.0 86 18 111/66 (81) 93 99.0 05/21/18 00:00 78 05/21/18 00:00 99.1 79 20 125/68 (87) 94 99.1 05/20/18 21:00 Room Air 05/20/18 20:00 97.5 62 18 105/59 (74) 96 97.5 05/20/18 20:00 73 05/20/18 19:39 Room Air 05/20/18 19:38 96 Room Air 05/20/18 16:00 75 05/20/18 16:00 97.2 78 22 105/58 (74) 96 97.2 05/20/18 15:32 97.8 05/20/18 15:02 97.8 I&O Intake and Output 05/20/18 05/21/18 19:00 07:00 Intake Total 860 ml Output Total 750 ml Balance 860 ml -750 ml Intake Oral 860 ml Output Urine Total 750 ml # Voids 3 3 # Bowel Movements 1 Respiratory: clear Abdomen: soft, flat, non-tender, present bowel sounds Extremities: no tenderness Laboratory Tests Test 05/21/18 05:05 White Blood Count 7.5 K/UL (4.8-10.8) Red Blood Count 4.06 M/UL (4.20-5.40) L Hemoglobin 12.4 G/DL (12.0-16.0) Hematocrit 37.1 % (37.0-47.0) Mean Corpuscular Volume 91 FL (80-99) Mean Corpuscular Hemoglobin 30.6 PG (27.0-31.0) Mean Corpuscular Hemoglobin Concent 33.5 G/DL (32.0-36.0) Red Cell Distribution Width 11.9 % (11.6-14.8) Platelet Count 115 K/UL (150-450) L Mean Platelet Volume 11.0 FL (6.5-10.1) H Neutrophils (%) (Auto) 81.3 % (45.0-75.0) H Lymphocytes (%) (Auto) 8.0 % (20.0-45.0) L Monocytes (%) (Auto) 5.5 % (1.0-10.0) Eosinophils (%) (Auto) 4.9 % (0.0-3.0) H Basophils (%) (Auto) 0.3 % (0.0-2.0) Sodium Level 138 MMOL/L (136-145) Potassium Level 3.3 MMOL/L (3.5-5.1) L Chloride Level 107 MMOL/L (98-107) Carbon Dioxide Level 22 MMOL/L (21-32) Anion Gap 9 mmol/L (5-15) Blood Urea Nitrogen 5 mg/dL (7-18) L Creatinine 0.6 MG/DL (0.55-1.30) Estimat Glomerular Filtration Rate mL/min (>60) Glucose Level 107 MG/DL (74-106) H Calcium Level 7.7 MG/DL (8.5-10.1) L Phosphorus Level 2.1 MG/DL (2.5-4.9) L Magnesium Level 2.0 MG/DL (1.8-2.4) Total Bilirubin 1.3 MG/DL (0.2-1.0) H Direct Bilirubin 0.7 MG/DL (0.0-0.3) H Gamma Glutamyl Transpeptidase 375 U/L (5-85) H Aspartate Amino Transf (AST/SGOT) 85 U/L (15-37) H Alanine Aminotransferase (ALT/SGPT) 171 U/L (12-78) H Alkaline Phosphatase 632 U/L (46-116) H C-Reactive Protein, Quantitative 3.2 mg/dL (0.00-0.90) H Pro-B-Type Natriuretic Peptide 372 pg/mL (0-125) H Total Protein 6.1 G/DL (6.4-8.2) L Albumin 2.6 G/DL (3.4-5.0) L Globulin 3.5 g/dL Albumin/Globulin Ratio 0.7 (1.0-2.7) L Assessment Additional Comments abdominal pain resolved Plan Additional Comments I will sign off thank you Jackie Mckeon MD May 21, 2018 13:18
--- NOTE | 2018-05-21 13:39 | General Progress Note ---
Assessment/Plan Assessment/Plan # Thrombocytopenia is likely related to potential; equivocally slightly coarsened slightly increased hepatic echogenicity, if real could indicate hepatocellular disease, otherwise nonspecific --> hepatitis and hiv pending --> us of the abdomen has been reviewed --> no fevers or chills noted # Leukocytosis due to potential infection, blood cultures at this time are negative --> peripheral smear has been reviewed --> current blood cultures negative # GERD (gastroesophageal reflux disease) --> ppi bid # Abdominal pain --> f/u on surgical recs, for possible cholecytitis --> cleared by surg # Cholecystitis # Chest pain --> appreciate cards recs Subjective Constitutional: Denies: no symptoms, chills, diaphoresis, fever, malaise, weakness, other HEENT: Denies: no symptoms, eye pain, blurred vision, tearing, double vision, ear pain, ear discharge, nose pain, nose congestion, throat pain, throat swelling, mouth pain, mouth swelling, other Cardiovascular: Denies: no symptoms, chest pain, edema, irregular heart rate, lightheadedness, palpitations, syncope, other Respiratory: Denies: no symptoms, cough, orthopnea, shortness of breath, SOB with excertion, SOB at rest, sputum, stridor, wheezing, other Genitourinary: Denies: no symptoms, burning, discharge, frequency, flank pain, hematuria, incontinence, pain, urgency, other Neurologic/Psychiatric: Denies: no symptoms, anxiety, depressed, emotional problems, headache, numbness, paresthesia, pre-existing deficit, seizure, tingling, tremors, weakness, other Endocrine: Denies: no symptoms, excessive sweating, flushing, intolerance to cold, intolerance to heat, increased hunger, increased thirst, increased urine, unexplained weight gain, unexplained weight loss, other Hematologic/Lymphatic: Denies: no symptoms, anemia, easy bleeding, easy bruising, other Allergies: Coded Allergies: ASPIRIN (Verified Allergy, Intermediate, Hives, 05/19/18) [place] (Verified Allergy, Unknown, 05/19/18) Subjective imaging has been reviewed, seen by surgery, epigastric pain better Objective Last 24 Hour Vital Signs Date Time Temp Pulse Resp B/P (MAP) Pulse Ox O2 Delivery O2 Flow Rate FiO2 05/21/18 12:00 97.5 81 18 116/76 (89) 96 97.5 05/21/18 09:00 Room Air 05/21/18 08:00 79 05/21/18 08:00 98.2 75 18 123/76 (92) 93 98.2 05/21/18 04:00 113 05/21/18 04:00 99.0 86 18 111/66 (81) 93 99.0 05/21/18 00:00 78 05/21/18 00:00 99.1 79 20 125/68 (87) 94 99.1 05/20/18 21:00 Room Air 05/20/18 20:00 97.5 62 18 105/59 (74) 96 97.5 05/20/18 20:00 73 05/20/18 19:39 Room Air 05/20/18 19:38 96 Room Air 05/20/18 16:00 75 05/20/18 16:00 97.2 78 22 105/58 (74) 96 97.2 05/20/18 15:32 97.8 05/20/18 15:02 97.8 Intake and Output 05/20/18 05/21/18 19:00 07:00 Intake Total 860 ml Output Total 750 ml Balance 860 ml -750 ml Intake Oral 860 ml Output Urine Total 750 ml # Voids 3 3 # Bowel Movements 1 Laboratory Tests 05/21/18 05:05: White Blood Count 7.5, Red Blood Count 4.06L, Hemoglobin 12.4, Hematocrit 37.1, Mean Corpuscular Volume 91, Mean Corpuscular Hemoglobin 30.6, Mean Corpuscular Hemoglobin Concent 33.5, Red Cell Distribution Width 11.9, Platelet Count 115L, Mean Platelet Volume 11.0H, Neutrophils (%) (Auto) 81.3H, Lymphocytes (%) (Auto ) 8.0L, Monocytes (%) (Auto) 5.5, Eosinophils (%) (Auto) 4.9H, Basophils (%) ( Auto) 0.3, Sodium Level 138, Potassium Level 3.3L, Chloride Level 107, Carbon Dioxide Level 22, Anion Gap 9, Blood Urea Nitrogen 5L, Creatinine 0.6, Estimat Glomerular Filtration Rate , Glucose Level 107H, Calcium Level 7.7L, Phosphorus Level 2.1L, Magnesium Level 2.0, Total Bilirubin 1.3H, Direct Bilirubin 0.7H, Gamma Glutamyl Transpeptidase 375H, Aspartate Amino Transf (AST/SGOT) 85H, Alanine Aminotransferase (ALT/SGPT) 171H, Alkaline Phosphatase 632H, C-Reactive Protein, Quantitative 3.2H, Pro-B-Type Natriuretic Peptide 372H, Total Protein 6.1L, Albumin 2.6L, Globulin 3.5, Albumin/Globulin Ratio 0.7L Height (Feet): 5 Height (Inches): 3.00 Weight (Pounds): 134 General Appearance: alert EENT: TMs normal Neck: supple Cardiovascular: normal rate Respiratory/Chest: no respiratory distress Abdomen: soft Extremities: non-tender Edema: 1+ Leg (L), 1+ Leg (R) Neurologic: alert Skin: warm/dry Brady Rod MD May 21, 2018 13:39
--- NOTE | 2018-05-21 15:47 | Diagnostic Imaging Report ---
Indications: Abdominal pain, abnormal liver function tests, earlier imaging studies raising concern for acute cholecystitis Technique: IV administration 5.5 mCi 99 M technetium Choletec. Serial images obtained over the abdomen for 2 hrs . 2 mg of morphine given at 82 minutes IV Comparison: None Findings: Prompt tracer uptake within the liver. Note, however, unusual apparent decreased uptake within the right hepatic lobe. Extrahepatic bile ducts are seen at 16 minutes. Excretion into the duodenum demonstrated at 67 minutes. Gallbladder visualized at 55 minutes. Impression: Negative for evidence of acute cholecystitis-no cystic duct obstruction or common bile duct obstruction Unusual apparent decreased uptake within the right hepatic lobe. This may be just an artifact of the unusual hepatic morphology with an unusually thin and posterior right hepatic lobe, but the possibility of unilateral lobar hepatocellular dysfunction cannot be ruled out Somewhat unusually slow tracer uptake and excretion, could indicate generalized hepatocellular dysfunction but is nonspecific
[2018-05-21 16:00] VITALS: BP 143/85
[2018-05-21 20:00] VITALS: BP 139/88
[2018-05-21 20:51] LABS: APPEARANCE,URINE CLEAR; BILIRUBIN, URINE NEGATIVE (NEGATIVE); COLOR,URINE AMBER; GLUCOSE, URINE (UA) NEGATIVE (NEGATIVE); KETONES,URINE 1+ (NEGATIVE); LEUKOCYTE ESTERASE ,URINE NEGATIVE (NEGATIVE); NITRITE,URINE NEGATIVE (NEGATIVE); PH,URINE 6.5 (4.5-8.0); PROTEIN,URINE NEGATIVE (NEGATIVE); UROBILINOGEN,URINE 1 MG/DL (0.0-1.0)
--- NOTE | 2018-05-21 21:41 | Cardiology Progress Note ---
Assessment/Plan Assessment/Plan 1. Sinus tachycardia, resolved, continue hydration and electrolyte correction. 2. Normal LV systolic function. 3. Transaminitis Subjective Subjective Sinus rhythm at 83. Objective Last 24 Hour Vital Signs Date Time Temp Pulse Resp B/P (MAP) Pulse Ox O2 Delivery O2 Flow Rate FiO2 05/21/18 16:00 95.7 83 18 143/85 (104) 93 95.7 05/21/18 16:00 83 05/21/18 12:00 84 05/21/18 12:00 97.5 81 18 116/76 (89) 96 97.5 05/21/18 09:00 Room Air 05/21/18 08:00 79 05/21/18 08:00 98.2 75 18 123/76 (92) 93 98.2 05/21/18 04:00 113 05/21/18 04:00 99.0 86 18 111/66 (81) 93 99.0 05/21/18 00:00 78 05/21/18 00:00 99.1 79 20 125/68 (87) 94 99.1 Intake and Output 05/20/18 05/21/18 19:00 07:00 Intake Total 860 ml 50 ml Output Total 750 ml Balance 860 ml -700 ml Intake Oral 860 ml IV Total 50 ml Output Urine Total 750 ml # Voids 3 3 # Bowel Movements 1 2D Echo: LVEF 65%, Grade I LVDD, RVSP 32 mmHg Laboratory Tests Test 05/21/18 05:05 05/21/18 19:20 White Blood Count 7.5 K/UL (4.8-10.8) Red Blood Count 4.06 M/UL (4.20-5.40) L Hemoglobin 12.4 G/DL (12.0-16.0) Hematocrit 37.1 % (37.0-47.0) Mean Corpuscular Volume 91 FL (80-99) Mean Corpuscular Hemoglobin 30.6 PG (27.0-31.0) Mean Corpuscular Hemoglobin Concent 33.5 G/DL (32.0-36.0) Red Cell Distribution Width 11.9 % (11.6-14.8) Platelet Count 115 K/UL (150-450) L Mean Platelet Volume 11.0 FL (6.5-10.1) H Neutrophils (%) (Auto) 81.3 % (45.0-75.0) H Lymphocytes (%) (Auto) 8.0 % (20.0-45.0) L Monocytes (%) (Auto) 5.5 % (1.0-10.0) Eosinophils (%) (Auto) 4.9 % (0.0-3.0) H Basophils (%) (Auto) 0.3 % (0.0-2.0) Sodium Level 138 MMOL/L (136-145) Potassium Level 3.3 MMOL/L (3.5-5.1) L Chloride Level 107 MMOL/L (98-107) Carbon Dioxide Level 22 MMOL/L (21-32) Anion Gap 9 mmol/L (5-15) Blood Urea Nitrogen 5 mg/dL (7-18) L Creatinine 0.6 MG/DL (0.55-1.30) Estimat Glomerular Filtration Rate mL/min (>60) Glucose Level 107 MG/DL (74-106) H Calcium Level 7.7 MG/DL (8.5-10.1) L Phosphorus Level 2.1 MG/DL (2.5-4.9) L Magnesium Level 2.0 MG/DL (1.8-2.4) Total Bilirubin 1.3 MG/DL (0.2-1.0) H Direct Bilirubin 0.7 MG/DL (0.0-0.3) H Gamma Glutamyl Transpeptidase 375 U/L (5-85) H Aspartate Amino Transf (AST/SGOT) 85 U/L (15-37) H Alanine Aminotransferase (ALT/SGPT) 171 U/L (12-78) H Alkaline Phosphatase 632 U/L (46-116) H C-Reactive Protein, Quantitative 3.2 mg/dL (0.00-0.90) H Pro-B-Type Natriuretic Peptide 372 pg/mL (0-125) H Total Protein 6.1 G/DL (6.4-8.2) L Albumin 2.6 G/DL (3.4-5.0) L Globulin 3.5 g/dL Albumin/Globulin Ratio 0.7 (1.0-2.7) L Urine Color [place] Urine Appearance Clear Urine pH 6.5 (4.5-8.0) Urine Specific [place] 1.015 (1.005-1.035) Urine Protein Negative (NEGATIVE) Urine Glucose (UA) Negative (NEGATIVE) Urine Ketones 1+ (NEGATIVE) H Urine Blood 3+ (NEGATIVE) H Urine Nitrite Negative (NEGATIVE) Urine Bilirubin Negative (NEGATIVE) Urine Ictotest Negative (NEGATIVE) Urine Urobilinogen 1 MG/DL (0.0-1.0) H Urine Leukocyte Esterase Negative (NEGATIVE) Urine RBC 10-15 /HPF (0 - 2) H Urine WBC 0-2 /HPF (0 - 2) Urine Squamous Epithelial Cells Few /LPF (NONE/OCC) Urine Bacteria Few /HPF (NONE) Urine Mucus Few /LPF (NONE/OCC) H Microbiology Date/Time Source Procedure Growth Status 05/18/18 22:05 Blood Blood Culture - Preliminary NO GROWTH AFTER 48 HOURS Resulted 05/18/18 21:50 Blood Blood Culture - Preliminary NO GROWTH AFTER 48 HOURS Resulted 05/19/18 00:05 Nasal Nares MRSA Culture - Final NO METHICILLIN RESISTANT STAPH AUREUS... Complete 05/19/18 09:10 Urine,Clean Catch Urine Culture - Final NO GROWTH AFTER 48 HOURS Complete 05/19/18 00:05 Rectum - Final NO CARBAPENEM-RESISTANT ENTEROBACTERI... Complete 05/19/18 00:05 Rectum VRE Culture - Final NO VANCOMYCIN RESISTANT ENTEROCOCCUS ... Complete Objective HEENT: Atraumatic, normocephalic, PERRLA, EOMI. NECK: Negative JVD, no caroid bruit. PULMONARY: Decreased breath sounds. CARDIOVASCULAR: Regular rate, rhythm. Normal S1S2, no murmurs, gallops or rubs. ABDOMEN: Soft, nontender, and nondistended, no hepatosplenomegaly. EXTREMITIES: No cyanosis, clubbing, or edema. Ra Matta MD May 21, 2018 21:41
--- NOTE | 2018-05-21 23:30 | General Progress Note ---
Assessment/Plan Status: stable, progressing Assessment/Plan Anxiety d/o Ativan prn Provided ro/st Subjective Date patient seen: May 21, 2018 Neurologic/Psychiatric: Reports: anxiety, depressed Allergies: Coded Allergies: ASPIRIN (Verified Allergy, Intermediate, Hives, 05/19/18) Navarro (Verified Allergy, Unknown, 05/19/18) Objective Last 24 Hour Vital Signs Date Time Temp Pulse Resp B/P (MAP) Pulse Ox O2 Delivery O2 Flow Rate FiO2 05/21/18 21:00 Room Air 05/21/18 20:00 80 05/21/18 20:00 98.2 82 20 139/88 (105) 95 98.2 05/21/18 16:00 95.7 83 18 143/85 (104) 93 95.7 05/21/18 16:00 83 05/21/18 12:00 84 05/21/18 12:00 97.5 81 18 116/76 (89) 96 97.5 05/21/18 09:00 Room Air 05/21/18 08:00 79 05/21/18 08:00 98.2 75 18 123/76 (92) 93 98.2 05/21/18 04:00 113 05/21/18 04:00 99.0 86 18 111/66 (81) 93 99.0 05/21/18 00:00 78 05/21/18 00:00 99.1 79 20 125/68 (87) 94 99.1 Intake and Output 05/20/18 05/21/18 19:00 07:00 Intake Total 860 ml 50 ml Output Total 750 ml Balance 860 ml -700 ml Intake Oral 860 ml IV Total 50 ml Output Urine Total 750 ml # Voids 3 3 # Bowel Movements 1 Laboratory Tests 05/21/18 05:05: White Blood Count 7.5, Red Blood Count 4.06L, Hemoglobin 12.4, Hematocrit 37.1, Mean Corpuscular Volume 91, Mean Corpuscular Hemoglobin 30.6, Mean Corpuscular Hemoglobin Concent 33.5, Red Cell Distribution Width 11.9, Platelet Count 115L, Mean Platelet Volume 11.0H, Neutrophils (%) (Auto) 81.3H, Lymphocytes (%) (Auto ) 8.0L, Monocytes (%) (Auto) 5.5, Eosinophils (%) (Auto) 4.9H, Basophils (%) ( Auto) 0.3, Sodium Level 138, Potassium Level 3.3L, Chloride Level 107, Carbon Dioxide Level 22, Anion Gap 9, Blood Urea Nitrogen 5L, Creatinine 0.6, Estimat Glomerular Filtration Rate , Glucose Level 107H, Calcium Level 7.7L, Phosphorus Level 2.1L, Magnesium Level 2.0, Total Bilirubin 1.3H, Direct Bilirubin 0.7H, Gamma Glutamyl Transpeptidase 375H, Aspartate Amino Transf (AST/SGOT) 85H, Alanine Aminotransferase (ALT/SGPT) 171H, Alkaline Phosphatase 632H, C-Reactive Protein, Quantitative 3.2H, Pro-B-Type Natriuretic Peptide 372H, Total Protein 6.1L, Albumin 2.6L, Globulin 3.5, Albumin/Globulin Ratio 0.7L 05/21/18 19:20: Urine Color [place], Urine Appearance Clear, Urine pH 6.5, Urine Specific [place] 1.015, Urine Protein Negative, Urine Glucose (UA) Negative, Urine Ketones 1+H, Urine Blood 3+H, Urine Nitrite Negative, Urine Bilirubin Negative, Urine Ictotest Negative, Urine Urobilinogen 1H, Urine Leukocyte Esterase Negative, Urine RBC 10-15H, Urine WBC 0-2, Urine Squamous Epithelial Cells Few, Urine Bacteria Few, Urine Mucus FewH Height (Feet): 5 Height (Inches): 3.00 Weight (Pounds): 134 General Appearance: no apparent distress, alert Alesia Cardenas MD May 21, 2018 23:29
[2018-05-22] VITALS: BP 120/74
[2018-05-22 04:00] VITALS: BP 124/67
[2018-05-22 07:33] LABS: BASOPHILS % (AUTO) 0.6 % (0.0-2.0); EOSINOPHILS % (AUTO) 6.7 % (0.0-3.0); HEMATOCRIT 35.1 % (37.0-47.0); LYMPHOCYTES % (AUTO) 17.7 % (20.0-45.0); MEAN CORPUSCULAR VOLUME 90 FL (80-99); MONOCYTES % (AUTO) 8.5 % (1.0-10.0); NEUTROPHILS % (AUTO) 66.5 % (45.0-75.0); PLATELET COUNT 128 K/UL (150-450); RED BLOOD COUNT 3.88 M/UL (4.20-5.40); RED CELL DISTRIBUTION WIDTH 11.7 % (11.6-14.8); WHITE BLOOD COUNT 5.8 K/UL (4.8-10.8)
[2018-05-22 08:00] VITALS: BP 112/73
[2018-05-22 08:06] LABS: PHOSPHORUS 2.6 MG/DL (2.5-4.9)
[2018-05-22 08:11] LABS: ALANINE AMINOTRANSFERASE 161 U/L (12-78); ALBUMIN 2.6 G/DL (3.4-5.0); ALBUMIN/GLOBULIN RATIO 0.7 (1.0-2.7); ALKALINE PHOSPHATASE 795 U/L (46-116); ANION GAP 7 mmol/L (5-15); ASPARTATE AMINO TRANSFERASE 95 U/L (15-37); BLOOD UREA NITROGEN 4 mg/dL (7-18); CALCIUM 8.1 MG/DL (8.5-10.1); CARBON DIOXIDE 23 MMOL/L (21-32); CHLORIDE 107 MMOL/L (98-107); CREATININE 0.6 MG/DL (0.55-1.30); POTASSIUM 3.7 MMOL/L (3.5-5.1); SODIUM 137 MMOL/L (136-145)
[2018-05-22] MEDS: Heparin 5000 units/ml inj SUBQ SCH ×2 (09:00→20:35)
--- NOTE | 2018-05-22 09:29 | Nephrology Progress Note ---
Assessment/Plan Problem List: (1) Dehydration (2) Hematuria (3) Cholecystitis (4) Abdominal pain (5) Hypoalbuminemia Assessment dehydration- High LFTs , Cholecyctitis HTN Hematuria Low Albumin Plan no antibiotics- cultures negative K and Phos IV as needed low fat diest Protonix PO monitor LFTs abd DAWNA per GI waiting urine culture results per orders Subjective ROS Limited/Unobtainable: No Constitutional: Reports: malaise Subjective no abd pain Objective Objective Last 24 Hour Vital Signs Date Time Temp Pulse Resp B/P (MAP) Pulse Ox O2 Delivery O2 Flow Rate FiO2 05/22/18 08:00 88 05/22/18 08:00 97.9 79 20 112/73 (86) 94 97.9 05/22/18 04:00 74 05/22/18 04:00 98.2 76 22 124/67 (86) 93 98.2 05/22/18 00:00 79 05/22/18 00:00 98.1 84 20 120/74 (89) 94 98.1 05/21/18 21:00 Room Air 05/21/18 20:00 80 05/21/18 20:00 98.2 82 20 139/88 (105) 95 98.2 05/21/18 16:00 95.7 83 18 143/85 (104) 93 95.7 05/21/18 16:00 83 05/21/18 12:00 84 05/21/18 12:00 97.5 81 18 116/76 (89) 96 97.5 Intake and Output 05/21/18 05/22/18 19:00 07:00 Intake Total 1185.0 ml 200 ml Output Total 303 ml Balance 1185.0 ml -103 ml Intake Oral 425 ml 200 ml IV Total 760.0 ml Output Urine Total 303 ml # Voids 5 1 Laboratory Tests 05/21/18 19:20: Urine Color [place], Urine Appearance Clear, Urine pH 6.5, Urine Specific [place] 1.015, Urine Protein Negative, Urine Glucose (UA) Negative, Urine Ketones 1+H, Urine Blood 3+H, Urine Nitrite Negative, Urine Bilirubin Negative, Urine Ictotest Negative, Urine Urobilinogen 1H, Urine Leukocyte Esterase Negative, Urine RBC 10-15H, Urine WBC 0-2, Urine Squamous Epithelial Cells Few, Urine Bacteria Few, Urine Mucus FewH 05/22/18 05:30: White Blood Count 5.8, Red Blood Count 3.88L, Hemoglobin 12.0, Hematocrit 35.1L , Mean Corpuscular Volume 90, Mean Corpuscular Hemoglobin 30.9, Mean Corpuscular Hemoglobin Concent 34.1, Red Cell Distribution Width 11.7, Platelet Count 128L, Mean Platelet Volume 10.7H, Neutrophils (%) (Auto) 66.5, Lymphocytes (%) (Auto) 17.7L, Monocytes (%) (Auto) 8.5, Eosinophils (%) (Auto) 6.7H, Basophils (%) (Auto) 0.6, Sodium Level 137, Potassium Level 3.7, Chloride Level 107, Carbon Dioxide Level 23, Anion Gap 7, Blood Urea Nitrogen 4L, Creatinine 0.6, Estimat Glomerular Filtration Rate , Glucose Level 100, Calcium Level 8.1L, Phosphorus Level 2.6, Magnesium Level 1.9, Total Bilirubin 1.0, Gamma Glutamyl Transpeptidase 424H, Aspartate Amino Transf (AST/SGOT) 95H, Alanine Aminotransferase (ALT/SGPT) 161H, Alkaline Phosphatase 795H, Pro-B-Type Natriuretic Peptide 469H, Total Protein 6.1L, Albumin 2.6L, Globulin 3.5, Albumin/Globulin Ratio 0.7L Height (Feet): 5 Height (Inches): 3.00 Weight (Pounds): 134 General Appearance: no apparent distress, other - feels full after po Cardiovascular: normal rate Respiratory/Chest: lungs clear Abdomen: soft Joshua Quinn MD May 22, 2018 09:29
[2018-05-22 12:00] VITALS: BP 117/68
--- NOTE | 2018-05-22 13:24 | General Progress Note ---
Assessment/Plan Assessment/Plan (1) Abdominal pain ICD Codes: R10.9 - Unspecified abdominal pain SNOMED: 03867370 (2) GERD (gastroesophageal reflux disease) ICD Codes: K21.9 - Gastro-esophageal reflux disease without esophagitis SNOMED: 237636440 (3) Suspected Cholecystitis, but negative HIDA ICD Codes: K81.9 - Cholecystitis, unspecified SNOMED: 83418868 (4) Abnormal LFT Assessment/Plan abdominal US reviewed >> Distended gallbladder. Equivocally slightly coarsened slightly increased hepatic echogenicity, if real could indicate hepatocellular disease, otherwise nonspecific. >> will order HIDA surgical recs reviewed >> no intervention LFT elevation >> possible hepatocellular disease epigastric pain resolved advance to regular diet check MRI/MRCP to r/o CBD stones fu cardiology recs for CP ppi BID zofran prn electrolyte correction pain mgmt fu labs Subjective Allergies: Coded Allergies: ASPIRIN (Verified Allergy, Intermediate, Hives, 05/19/18) Navarro (Verified Allergy, Unknown, 05/19/18) Subjective patient c/o some epigastric pain Objective Last 24 Hour Vital Signs Date Time Temp Pulse Resp B/P (MAP) Pulse Ox O2 Delivery O2 Flow Rate FiO2 05/22/18 12:00 98.1 77 20 117/68 (84) 97 98.1 05/22/18 09:00 Room Air 05/22/18 08:00 88 05/22/18 08:00 97.9 79 20 112/73 (86) 94 97.9 05/22/18 04:00 74 05/22/18 04:00 98.2 76 22 124/67 (86) 93 98.2 05/22/18 00:00 79 05/22/18 00:00 98.1 84 20 120/74 (89) 94 98.1 05/21/18 21:00 Room Air 05/21/18 20:00 80 05/21/18 20:00 98.2 82 20 139/88 (105) 95 98.2 05/21/18 16:00 95.7 83 18 143/85 (104) 93 95.7 05/21/18 16:00 83 Intake and Output 05/21/18 05/22/18 19:00 07:00 Intake Total 1185.0 ml 200 ml Output Total 303 ml Balance 1185.0 ml -103 ml Intake Oral 425 ml 200 ml IV Total 760.0 ml Output Urine Total 303 ml # Voids 5 1 Laboratory Tests 05/21/18 19:20: Urine Color [place], Urine Appearance Clear, Urine pH 6.5, Urine Specific [place] 1.015, Urine Protein Negative, Urine Glucose (UA) Negative, Urine Ketones 1+H, Urine Blood 3+H, Urine Nitrite Negative, Urine Bilirubin Negative, Urine Ictotest Negative, Urine Urobilinogen 1H, Urine Leukocyte Esterase Negative, Urine RBC 10-15H, Urine WBC 0-2, Urine Squamous Epithelial Cells Few, Urine Bacteria Few, Urine Mucus FewH 05/22/18 05:30: White Blood Count 5.8, Red Blood Count 3.88L, Hemoglobin 12.0, Hematocrit 35.1L , Mean Corpuscular Volume 90, Mean Corpuscular Hemoglobin 30.9, Mean Corpuscular Hemoglobin Concent 34.1, Red Cell Distribution Width 11.7, Platelet Count 128L, Mean Platelet Volume 10.7H, Neutrophils (%) (Auto) 66.5, Lymphocytes (%) (Auto) 17.7L, Monocytes (%) (Auto) 8.5, Eosinophils (%) (Auto) 6.7H, Basophils (%) (Auto) 0.6, Sodium Level 137, Potassium Level 3.7, Chloride Level 107, Carbon Dioxide Level 23, Anion Gap 7, Blood Urea Nitrogen 4L, Creatinine 0.6, Estimat Glomerular Filtration Rate , Glucose Level 100, Calcium Level 8.1L, Phosphorus Level 2.6, Magnesium Level 1.9, Total Bilirubin 1.0, Gamma Glutamyl Transpeptidase 424H, Aspartate Amino Transf (AST/SGOT) 95H, Alanine Aminotransferase (ALT/SGPT) 161H, Alkaline Phosphatase 795H, Pro-B-Type Natriuretic Peptide 469H, Total Protein 6.1L, Albumin 2.6L, Globulin 3.5, Albumin/Globulin Ratio 0.7L Height (Feet): 5 Height (Inches): 3.00 Weight (Pounds): 134 Objective WDWN NCAT supple CTA RRR Soft ND, (+) epigastric TTP no edema Giovanni Leon MD May 22, 2018 13:24
--- NOTE | 2018-05-22 15:15 | General Surgery Progress Note ---
General Surgery-Progress Note Subjective Symptoms: improved, BM Objective Last 24 Hour Vital Signs Date Time Temp Pulse Resp B/P (MAP) Pulse Ox O2 Delivery O2 Flow Rate FiO2 05/22/18 12:00 98.1 77 20 117/68 (84) 97 98.1 05/22/18 09:00 Room Air 05/22/18 08:00 88 05/22/18 08:00 97.9 79 20 112/73 (86) 94 97.9 05/22/18 04:00 74 05/22/18 04:00 98.2 76 22 124/67 (86) 93 98.2 05/22/18 00:00 79 05/22/18 00:00 98.1 84 20 120/74 (89) 94 98.1 05/21/18 21:00 Room Air 05/21/18 20:00 80 05/21/18 20:00 98.2 82 20 139/88 (105) 95 98.2 05/21/18 16:00 95.7 83 18 143/85 (104) 93 95.7 05/21/18 16:00 83 I&O Intake and Output 05/21/18 05/22/18 19:00 07:00 Intake Total 1185.0 ml 200 ml Output Total 303 ml Balance 1185.0 ml -103 ml Intake Oral 425 ml 200 ml IV Total 760.0 ml Output Urine Total 303 ml # Voids 5 1 Respiratory: clear Abdomen: soft, flat, non-tender, present bowel sounds Extremities: no tenderness Laboratory Tests Test 05/21/18 19:20 05/22/18 05:30 Urine Color [place] Urine Appearance Clear Urine pH 6.5 (4.5-8.0) Urine Specific [place] 1.015 (1.005-1.035) Urine Protein Negative (NEGATIVE) Urine Glucose (UA) Negative (NEGATIVE) Urine Ketones 1+ (NEGATIVE) H Urine Blood 3+ (NEGATIVE) H Urine Nitrite Negative (NEGATIVE) Urine Bilirubin Negative (NEGATIVE) Urine Ictotest Negative (NEGATIVE) Urine Urobilinogen 1 MG/DL (0.0-1.0) H Urine Leukocyte Esterase Negative (NEGATIVE) Urine RBC 10-15 /HPF (0 - 2) H Urine WBC 0-2 /HPF (0 - 2) Urine Squamous Epithelial Cells Few /LPF (NONE/OCC) Urine Bacteria Few /HPF (NONE) Urine Mucus Few /LPF (NONE/OCC) H White Blood Count 5.8 K/UL (4.8-10.8) Red Blood Count 3.88 M/UL (4.20-5.40) L Hemoglobin 12.0 G/DL (12.0-16.0) Hematocrit 35.1 % (37.0-47.0) L Mean Corpuscular Volume 90 FL (80-99) Mean Corpuscular Hemoglobin 30.9 PG (27.0-31.0) Mean Corpuscular Hemoglobin Concent 34.1 G/DL (32.0-36.0) Red Cell Distribution Width 11.7 % (11.6-14.8) Platelet Count 128 K/UL (150-450) L Mean Platelet Volume 10.7 FL (6.5-10.1) H Neutrophils (%) (Auto) 66.5 % (45.0-75.0) Lymphocytes (%) (Auto) 17.7 % (20.0-45.0) L Monocytes (%) (Auto) 8.5 % (1.0-10.0) Eosinophils (%) (Auto) 6.7 % (0.0-3.0) H Basophils (%) (Auto) 0.6 % (0.0-2.0) Sodium Level 137 MMOL/L (136-145) Potassium Level 3.7 MMOL/L (3.5-5.1) Chloride Level 107 MMOL/L (98-107) Carbon Dioxide Level 23 MMOL/L (21-32) Anion Gap 7 mmol/L (5-15) Blood Urea Nitrogen 4 mg/dL (7-18) L Creatinine 0.6 MG/DL (0.55-1.30) Estimat Glomerular Filtration Rate mL/min (>60) Glucose Level 100 MG/DL (74-106) Calcium Level 8.1 MG/DL (8.5-10.1) L Phosphorus Level 2.6 MG/DL (2.5-4.9) Magnesium Level 1.9 MG/DL (1.8-2.4) Total Bilirubin 1.0 MG/DL (0.2-1.0) Gamma Glutamyl Transpeptidase 424 U/L (5-85) H Aspartate Amino Transf (AST/SGOT) 95 U/L (15-37) H Alanine Aminotransferase (ALT/SGPT) 161 U/L (12-78) H Alkaline Phosphatase 795 U/L (46-116) H Pro-B-Type Natriuretic Peptide 469 pg/mL (0-125) H Total Protein 6.1 G/DL (6.4-8.2) L Albumin 2.6 G/DL (3.4-5.0) L Globulin 3.5 g/dL Albumin/Globulin Ratio 0.7 (1.0-2.7) L Assessment Additional Comments abdominal pain resolved this patient did not have cholecystitis and does not have it now Plan Additional Comments per PCP Jackie Mckeon MD May 22, 2018 15:15
--- NOTE | 2018-05-22 15:39 | Infectious Diseases Prog Note ---
Assessment/Plan Problems: (1) Cholecystitis Assessment & Plan: was ruled out with negative HIDA scan , keep off antibiotics , monitor clinically (2) GERD (gastroesophageal reflux disease) Assessment & Plan: continue PPI, follow up with GI (3) Abdominal pain Assessment & Plan: unclear etiology, may need EGD for further work up , GI is following (4) Compression fracture of thoracic spine, non-traumatic Assessment & Plan: continue pain management and PT/OT (5) Elevated transaminase level Assessment & Plan: rule out CBD stone , MRCP is pending, monitor LFT Subjective Constitutional: Reports: no symptoms HEENT: Reports: no symptoms Respiratory: Reports: no symptoms Breasts: Reports: no symptoms Cardiovascular: Reports: no symptoms Gastrointestinal/Abdominal: Reports: bloating, other - poor appiettiet Genitourinary: Reports: no symptoms Neurologic: Reports: no symptoms Psychiatric: Reports: no symptoms Skin: Reports: no symptoms Endocrine: Reports: no symptoms Hematologic: Reports: no symptoms Musculoskeletal: Reports: no symptoms Allergies: Coded Allergies: ASPIRIN (Verified Allergy, Intermediate, Hives, 05/19/18) Burt (Verified Allergy, Unknown, 05/19/18) Subjective she feels better but has poor oral intake with nausea Objective Vital Signs Last 24 Hour Vital Signs Date Time Temp Pulse Resp B/P (MAP) Pulse Ox O2 Delivery O2 Flow Rate FiO2 05/22/18 12:00 98.1 77 20 117/68 (84) 97 98.1 05/22/18 09:00 Room Air 05/22/18 08:00 88 05/22/18 08:00 97.9 79 20 112/73 (86) 94 97.9 05/22/18 04:00 74 05/22/18 04:00 98.2 76 22 124/67 (86) 93 98.2 05/22/18 00:00 79 05/22/18 00:00 98.1 84 20 120/74 (89) 94 98.1 05/21/18 21:00 Room Air 05/21/18 20:00 80 05/21/18 20:00 98.2 82 20 139/88 (105) 95 98.2 05/21/18 16:00 95.7 83 18 143/85 (104) 93 95.7 05/21/18 16:00 83 Height (Feet): 5 Height (Inches): 3.00 Weight (Pounds): 134 General Appearance: WD/WN, no acute distress HEENT: normocephalic, atraumatic, anicteric, mucous membranes moist, PERRL Respiratory/Chest: chest wall non-tender, lungs clear, normal breath sounds, no respiratory distress, no accessory muscle use Cardiovascular: normal peripheral pulses, normal rate, regular rhythm, no gallop/murmur, no JVD Abdomen: normal bowel sounds, soft, non tender, no organomegaly, non distended , no mass, no scars Genitourinary: normal external genitalia Extremities: no cyanosis, no clubbing Skin: no rash, no lesions, no ulcers Neurologic/Psychiatric: iron setter II-XII grossly normal, no motor/sensory deficits, alert, oriented x 3, normal mood/affect Lymphatic: no neck adenopathy, no groin adenopathy Musculoskeletal: normal muscle bulk, no effusion Laboratory Tests Test 05/21/18 19:20 05/22/18 05:30 Urine Color [place] Urine Appearance Clear Urine pH 6.5 (4.5-8.0) Urine Specific [place] 1.015 (1.005-1.035) Urine Protein Negative (NEGATIVE) Urine Glucose (UA) Negative (NEGATIVE) Urine Ketones 1+ (NEGATIVE) H Urine Blood 3+ (NEGATIVE) H Urine Nitrite Negative (NEGATIVE) Urine Bilirubin Negative (NEGATIVE) Urine Ictotest Negative (NEGATIVE) Urine Urobilinogen 1 MG/DL (0.0-1.0) H Urine Leukocyte Esterase Negative (NEGATIVE) Urine RBC 10-15 /HPF (0 - 2) H Urine WBC 0-2 /HPF (0 - 2) Urine Squamous Epithelial Cells Few /LPF (NONE/OCC) Urine Bacteria Few /HPF (NONE) Urine Mucus Few /LPF (NONE/OCC) H White Blood Count 5.8 K/UL (4.8-10.8) Red Blood Count 3.88 M/UL (4.20-5.40) L Hemoglobin 12.0 G/DL (12.0-16.0) Hematocrit 35.1 % (37.0-47.0) L Mean Corpuscular Volume 90 FL (80-99) Mean Corpuscular Hemoglobin 30.9 PG (27.0-31.0) Mean Corpuscular Hemoglobin Concent 34.1 G/DL (32.0-36.0) Red Cell Distribution Width 11.7 % (11.6-14.8) Platelet Count 128 K/UL (150-450) L Mean Platelet Volume 10.7 FL (6.5-10.1) H Neutrophils (%) (Auto) 66.5 % (45.0-75.0) Lymphocytes (%) (Auto) 17.7 % (20.0-45.0) L Monocytes (%) (Auto) 8.5 % (1.0-10.0) Eosinophils (%) (Auto) 6.7 % (0.0-3.0) H Basophils (%) (Auto) 0.6 % (0.0-2.0) Sodium Level 137 MMOL/L (136-145) Potassium Level 3.7 MMOL/L (3.5-5.1) Chloride Level 107 MMOL/L (98-107) Carbon Dioxide Level 23 MMOL/L (21-32) Anion Gap 7 mmol/L (5-15) Blood Urea Nitrogen 4 mg/dL (7-18) L Creatinine 0.6 MG/DL (0.55-1.30) Estimat Glomerular Filtration Rate mL/min (>60) Glucose Level 100 MG/DL (74-106) Calcium Level 8.1 MG/DL (8.5-10.1) L Phosphorus Level 2.6 MG/DL (2.5-4.9) Magnesium Level 1.9 MG/DL (1.8-2.4) Total Bilirubin 1.0 MG/DL (0.2-1.0) Gamma Glutamyl Transpeptidase 424 U/L (5-85) H Aspartate Amino Transf (AST/SGOT) 95 U/L (15-37) H Alanine Aminotransferase (ALT/SGPT) 161 U/L (12-78) H Alkaline Phosphatase 795 U/L (46-116) H Pro-B-Type Natriuretic Peptide 469 pg/mL (0-125) H Total Protein 6.1 G/DL (6.4-8.2) L Albumin 2.6 G/DL (3.4-5.0) L Globulin 3.5 g/dL Albumin/Globulin Ratio 0.7 (1.0-2.7) L Current Medications Medications (Trade) Dose Ordered Sig/Nori Route PRN Reason Start Time Stop Time Status Last Admin Dose Admin Acetaminophen (Tylenol) 650 mg Q6H PRN ORAL Mild Pain/Temp > 100.5 05/20/18 14:30 06/19/18 14:29 05/20/18 15:02 Heparin Sodium (Porcine) (Heparin 5000 units/ml) 5,000 units Q12HR SUBQ 05/19/18 21:00 06/18/18 20:59 Metoclopramide HCl (Reglan) 5 mg THREE TIMES A DAY ORAL 05/22/18 13:00 06/21/18 12:59 05/22/18 14:44 Pantoprazole (Protonix) 40 mg DAILY ORAL 05/23/18 09:00 06/20/18 20:59 Jose J Del Castillo M.D. May 22, 2018 15:39
[2018-05-22 16:00] VITALS: BP 132/73
--- NOTE | 2018-05-22 17:12 | General Progress Note ---
Assessment/Plan Status: stable Assessment/Plan # Thrombocytopenia is likely related to potential; equivocally slightly coarsened slightly increased hepatic echogenicity, if real could indicate hepatocellular disease, otherwise nonspecific --> hepatitis pending, hiv negative --> us of the abdomen has been reviewed --> no fevers or chills noted # Leukocytosis due to potential infection, blood cultures at this time are negative --> peripheral smear has been reviewed --> current blood cultures negative # GERD (gastroesophageal reflux disease) --> ppi bid # Abdominal pain --> f/u on surgical recs, for possible cholecystitis --> cleared by surg # Cholecystitis # Chest pain --> appreciate cards recs Subjective Date patient seen: May 22, 2018 ROS Limited/Unobtainable: Yes Gastrointestinal/Abdominal: Reports: abdominal pain Allergies: Coded Allergies: ASPIRIN (Verified Allergy, Intermediate, Hives, 05/19/18) Navarro (Verified Allergy, Unknown, 05/19/18) Subjective No acute events. VS stable. Objective Last 24 Hour Vital Signs Date Time Temp Pulse Resp B/P (MAP) Pulse Ox O2 Delivery O2 Flow Rate FiO2 05/22/18 16:00 98.2 82 20 132/73 (92) 94 98.2 05/22/18 12:00 98.1 77 20 117/68 (84) 97 98.1 05/22/18 09:00 Room Air 05/22/18 08:00 88 05/22/18 08:00 97.9 79 20 112/73 (86) 94 97.9 05/22/18 04:00 74 05/22/18 04:00 98.2 76 22 124/67 (86) 93 98.2 05/22/18 00:00 79 05/22/18 00:00 98.1 84 20 120/74 (89) 94 98.1 05/21/18 21:00 Room Air 05/21/18 20:00 80 05/21/18 20:00 98.2 82 20 139/88 (105) 95 98.2 Intake and Output 05/21/18 05/22/18 19:00 07:00 Intake Total 1185.0 ml 200 ml Output Total 303 ml Balance 1185.0 ml -103 ml Intake Oral 425 ml 200 ml IV Total 760.0 ml Output Urine Total 303 ml # Voids 5 1 Laboratory Tests 05/21/18 19:20: Urine Color [place], Urine Appearance Clear, Urine pH 6.5, Urine Specific [place] 1.015, Urine Protein Negative, Urine Glucose (UA) Negative, Urine Ketones 1+H, Urine Blood 3+H, Urine Nitrite Negative, Urine Bilirubin Negative, Urine Ictotest Negative, Urine Urobilinogen 1H, Urine Leukocyte Esterase Negative, Urine RBC 10-15H, Urine WBC 0-2, Urine Squamous Epithelial Cells Few, Urine Bacteria Few, Urine Mucus FewH 05/22/18 05:30: White Blood Count 5.8, Red Blood Count 3.88L, Hemoglobin 12.0, Hematocrit 35.1L , Mean Corpuscular Volume 90, Mean Corpuscular Hemoglobin 30.9, Mean Corpuscular Hemoglobin Concent 34.1, Red Cell Distribution Width 11.7, Platelet Count 128L, Mean Platelet Volume 10.7H, Neutrophils (%) (Auto) 66.5, Lymphocytes (%) (Auto) 17.7L, Monocytes (%) (Auto) 8.5, Eosinophils (%) (Auto) 6.7H, Basophils (%) (Auto) 0.6, Sodium Level 137, Potassium Level 3.7, Chloride Level 107, Carbon Dioxide Level 23, Anion Gap 7, Blood Urea Nitrogen 4L, Creatinine 0.6, Estimat Glomerular Filtration Rate , Glucose Level 100, Calcium Level 8.1L, Phosphorus Level 2.6, Magnesium Level 1.9, Total Bilirubin 1.0, Gamma Glutamyl Transpeptidase 424H, Aspartate Amino Transf (AST/SGOT) 95H, Alanine Aminotransferase (ALT/SGPT) 161H, Alkaline Phosphatase 795H, Pro-B-Type Natriuretic Peptide 469H, Total Protein 6.1L, Albumin 2.6L, Globulin 3.5, Albumin/Globulin Ratio 0.7L Height (Feet): 5 Height (Inches): 3.00 Weight (Pounds): 134 General Appearance: no apparent distress EENT: PERRL/EOMI Neck: normal alignment Cardiovascular: normal peripheral pulses Respiratory/Chest: no respiratory distress Abdomen: no mass Brady Rod MD May 22, 2018 17:12
--- NOTE | 2018-05-22 18:39 | General Progress Note ---
Assessment/Plan Problem List: (1) GERD (gastroesophageal reflux disease) ICD Codes: K21.9 - Gastro-esophageal reflux disease without esophagitis SNOMED: 285643587 (2) Abdominal pain ICD Codes: R10.9 - Unspecified abdominal pain SNOMED: 41701211 (3) Hypoalbuminemia ICD Codes: E88.09 - Other disorders of plasma-protein metabolism, not elsewhere classified SNOMED: 082538974 (4) Back pain ICD Codes: M54.9 - Dorsalgia, unspecified SNOMED: 484287655 (5) Degenerative disc disease, lumbar ICD Codes: M51.36 - Other intervertebral disc degeneration, lumbar region SNOMED: 25740148 (6) Dehydration ICD Codes: E86.0 - Dehydration SNOMED: 53744818 (7) Sepsis ICD Codes: A41.9 - Sepsis, unspecified organism SNOMED: 12684389 Status: progressing Assessment/Plan pain is decreasing afebrile abdominal pain favor conservative tx reviewed chart and labs needs snf for pt and ot lbp Subjective ROS Limited/Unobtainable: Yes Allergies: Coded Allergies: ASPIRIN (Verified Allergy, Intermediate, Hives, 05/19/18) [place] (Verified Allergy, Unknown, 05/19/18) Objective Last 24 Hour Vital Signs Date Time Temp Pulse Resp B/P (MAP) Pulse Ox O2 Delivery O2 Flow Rate FiO2 05/22/18 16:00 98.2 82 20 132/73 (92) 94 98.2 05/22/18 12:00 98.1 77 20 117/68 (84) 97 98.1 05/22/18 09:00 Room Air 05/22/18 08:00 88 05/22/18 08:00 97.9 79 20 112/73 (86) 94 97.9 05/22/18 04:00 74 05/22/18 04:00 98.2 76 22 124/67 (86) 93 98.2 05/22/18 00:00 79 05/22/18 00:00 98.1 84 20 120/74 (89) 94 98.1 05/21/18 21:00 Room Air 05/21/18 20:00 80 05/21/18 20:00 98.2 82 20 139/88 (105) 95 98.2 Intake and Output 05/21/18 05/22/18 19:00 07:00 Intake Total 1185.0 ml 200 ml Output Total 303 ml Balance 1185.0 ml -103 ml Intake Oral 425 ml 200 ml IV Total 760.0 ml Output Urine Total 303 ml # Voids 5 1 Laboratory Tests 05/21/18 19:20: Urine Color [place], Urine Appearance Clear, Urine pH 6.5, Urine Specific [place] 1.015, Urine Protein Negative, Urine Glucose (UA) Negative, Urine Ketones 1+H, Urine Blood 3+H, Urine Nitrite Negative, Urine Bilirubin Negative, Urine Ictotest Negative, Urine Urobilinogen 1H, Urine Leukocyte Esterase Negative, Urine RBC 10-15H, Urine WBC 0-2, Urine Squamous Epithelial Cells Few, Urine Bacteria Few, Urine Mucus FewH 05/22/18 05:30: White Blood Count 5.8, Red Blood Count 3.88L, Hemoglobin 12.0, Hematocrit 35.1L , Mean Corpuscular Volume 90, Mean Corpuscular Hemoglobin 30.9, Mean Corpuscular Hemoglobin Concent 34.1, Red Cell Distribution Width 11.7, Platelet Count 128L, Mean Platelet Volume 10.7H, Neutrophils (%) (Auto) 66.5, Lymphocytes (%) (Auto) 17.7L, Monocytes (%) (Auto) 8.5, Eosinophils (%) (Auto) 6.7H, Basophils (%) (Auto) 0.6, Sodium Level 137, Potassium Level 3.7, Chloride Level 107, Carbon Dioxide Level 23, Anion Gap 7, Blood Urea Nitrogen 4L, Creatinine 0.6, Estimat Glomerular Filtration Rate , Glucose Level 100, Calcium Level 8.1L, Phosphorus Level 2.6, Magnesium Level 1.9, Total Bilirubin 1.0, Gamma Glutamyl Transpeptidase 424H, Aspartate Amino Transf (AST/SGOT) 95H, Alanine Aminotransferase (ALT/SGPT) 161H, Alkaline Phosphatase 795H, Pro-B-Type Natriuretic Peptide 469H, Total Protein 6.1L, Albumin 2.6L, Globulin 3.5, Albumin/Globulin Ratio 0.7L Height (Feet): 5 Height (Inches): 3.00 Weight (Pounds): 134 Cardiovascular: normal rate Respiratory/Chest: lungs clear Abdomen: soft Mari Levy MD May 22, 2018 18:39
[2018-05-22 20:00] VITALS: BP 138/80
--- NOTE | 2018-05-22 23:54 | General Progress Note ---
Assessment/Plan Assessment/Plan Anxiety d/o Ativan prn Provided ro/st Subjective Neurologic/Psychiatric: Reports: anxiety, depressed Allergies: Coded Allergies: ASPIRIN (Verified Allergy, Intermediate, Hives, 05/19/18) [place] (Verified Allergy, Unknown, 05/19/18) Objective Last 24 Hour Vital Signs Date Time Temp Pulse Resp B/P (MAP) Pulse Ox O2 Delivery O2 Flow Rate FiO2 05/22/18 22:32 78 05/22/18 21:00 Room Air 05/22/18 20:00 98.2 83 20 138/80 (99) 94 98.2 05/22/18 16:00 98.2 82 20 132/73 (92) 94 98.2 05/22/18 12:00 98.1 77 20 117/68 (84) 97 98.1 05/22/18 09:00 Room Air 05/22/18 08:00 88 05/22/18 08:00 97.9 79 20 112/73 (86) 94 97.9 05/22/18 04:00 74 05/22/18 04:00 98.2 76 22 124/67 (86) 93 98.2 05/22/18 00:00 79 05/22/18 00:00 98.1 84 20 120/74 (89) 94 98.1 Intake and Output 05/21/18 05/22/18 19:00 07:00 Intake Total 1185.0 ml 200 ml Output Total 303 ml Balance 1185.0 ml -103 ml Intake Oral 425 ml 200 ml IV Total 760.0 ml Output Urine Total 303 ml # Voids 5 1 Laboratory Tests 05/22/18 05:30: White Blood Count 5.8, Red Blood Count 3.88L, Hemoglobin 12.0, Hematocrit 35.1L , Mean Corpuscular Volume 90, Mean Corpuscular Hemoglobin 30.9, Mean Corpuscular Hemoglobin Concent 34.1, Red Cell Distribution Width 11.7, Platelet Count 128L, Mean Platelet Volume 10.7H, Neutrophils (%) (Auto) 66.5, Lymphocytes (%) (Auto) 17.7L, Monocytes (%) (Auto) 8.5, Eosinophils (%) (Auto) 6.7H, Basophils (%) (Auto) 0.6, Sodium Level 137, Potassium Level 3.7, Chloride Level 107, Carbon Dioxide Level 23, Anion Gap 7, Blood Urea Nitrogen 4L, Creatinine 0.6, Estimat Glomerular Filtration Rate , Glucose Level 100, Calcium Level 8.1L, Phosphorus Level 2.6, Magnesium Level 1.9, Total Bilirubin 1.0, Gamma Glutamyl Transpeptidase 424H, Aspartate Amino Transf (AST/SGOT) 95H, Alanine Aminotransferase (ALT/SGPT) 161H, Alkaline Phosphatase 795H, Pro-B-Type Natriuretic Peptide 469H, Total Protein 6.1L, Albumin 2.6L, Globulin 3.5, Albumin/Globulin Ratio 0.7L Height (Feet): 5 Height (Inches): 3.00 Weight (Pounds): 134 General Appearance: no apparent distress, alert Alesia Cardenas MD May 22, 2018 23:54
[2018-05-23] VITALS (7 sets, daily range): BP systolic 110–131; BP diastolic 68–78
[2018-05-23] MEDS: Heparin 5000 units/ml inj SUBQ SCH ×2 (08:54→21:08)
--- NOTE | 2018-05-23 09:52 | Infectious Diseases Prog Note ---
Assessment/Plan Assessment/Plan A 1. acute cholecystitis, ruled out 2. GERD 3. leucocytosis resolved 4. elevated transaminase, hepatocellular disease P: Observe off antibiotic Waiting for MRCP Subjective ROS Limited/Unobtainable: Yes Gastrointestinal/Abdominal: Reports: no symptoms Allergies: Coded Allergies: ASPIRIN (Verified Allergy, Intermediate, Hives, 05/19/18) [place] (Verified Allergy, Unknown, 05/19/18) Objective Vital Signs Last 24 Hour Vital Signs Date Time Temp Pulse Resp B/P (MAP) Pulse Ox O2 Delivery O2 Flow Rate FiO2 05/23/18 04:00 98.2 74 18 119/70 (86) 94 98.2 05/23/18 03:36 74 05/23/18 00:00 98.2 79 18 131/74 (93) 93 98.2 05/22/18 23:44 75 05/22/18 22:32 78 05/22/18 21:00 Room Air 05/22/18 20:00 98.2 83 20 138/80 (99) 94 98.2 05/22/18 16:00 98.2 82 20 132/73 (92) 94 98.2 05/22/18 12:00 98.1 77 20 117/68 (84) 97 98.1 Height (Feet): 5 Height (Inches): 3.00 Weight (Pounds): 134 General Appearance: no acute distress HEENT: mucous membranes moist Respiratory/Chest: lungs clear Cardiovascular: normal rate Abdomen: soft, non tender Extremities: no edema Neurologic/Psychiatric: alert, responsive Current Medications Medications (Trade) Dose Ordered Sig/Nori Route PRN Reason Start Time Stop Time Status Last Admin Dose Admin Acetaminophen (Tylenol) 650 mg Q6H PRN ORAL Mild Pain/Temp > 100.5 05/20/18 14:30 06/19/18 14:29 05/20/18 15:02 Heparin Sodium (Porcine) (Heparin 5000 units/ml) 5,000 units Q12HR SUBQ 05/19/18 21:00 06/18/18 20:59 Metoclopramide HCl (Reglan) 5 mg THREE TIMES A DAY ORAL 05/22/18 13:00 06/21/18 12:59 05/23/18 09:25 Pantoprazole (Protonix) 40 mg DAILY ORAL 05/23/18 09:00 06/20/18 20:59 05/23/18 09:26 Ryland Grigsby MD May 23, 2018 09:52
--- NOTE | 2018-05-23 12:47 | Nephrology Progress Note ---
Assessment/Plan Problem List: (1) Dehydration (2) Hematuria (3) Cholecystitis (4) Abdominal pain (5) Hypoalbuminemia Assessment dehydration- High LFTs , Cholecyctitis HTN Hematuria Low Albumin Plan no antibiotics- cultures negative K and Phos IV as needed low fat diest Protonix PO monitor LFTs abd DAWNA per GI urine culture results negative per orders med surg Subjective ROS Limited/Unobtainable: No Constitutional: Reports: malaise Subjective no abd pain Objective Objective Last 24 Hour Vital Signs Date Time Temp Pulse Resp B/P (MAP) Pulse Ox O2 Delivery O2 Flow Rate FiO2 05/23/18 12:00 97.7 74 16 110/68 (82) 93 97.7 05/23/18 09:00 Room Air 05/23/18 08:00 73 05/23/18 08:00 98.4 78 16 127/77 (94) 95 98.4 05/23/18 04:00 98.2 74 18 119/70 (86) 94 98.2 05/23/18 03:36 74 05/23/18 00:00 98.2 79 18 131/74 (93) 93 98.2 05/22/18 23:44 75 05/22/18 22:32 78 05/22/18 21:00 Room Air 05/22/18 20:00 98.2 83 20 138/80 (99) 94 98.2 05/22/18 16:00 98.2 82 20 132/73 (92) 94 98.2 Intake and Output 05/22/18 05/23/18 19:00 07:00 Intake Total 90 ml 125 ml Output Total 400 ml 950 ml Balance -310 ml -825 ml Intake Oral 90 ml 125 ml Output Urine Total 400 ml 950 ml # Voids 1 4 Height (Feet): 5 Height (Inches): 3.00 Weight (Pounds): 134 General Appearance: no apparent distress Objective no change Joshua Quinn MD May 23, 2018 12:47
--- NOTE | 2018-05-23 13:33 | General Progress Note ---
Assessment/Plan Assessment/Plan (1) Abdominal pain ICD Codes: R10.9 - Unspecified abdominal pain SNOMED: 37515209 (2) GERD (gastroesophageal reflux disease) ICD Codes: K21.9 - Gastro-esophageal reflux disease without esophagitis SNOMED: 692027969 (3) Suspected Cholecystitis, but negative HIDA ICD Codes: K81.9 - Cholecystitis, unspecified SNOMED: 06655336 (4) Abnormal LFT Assessment/Plan abdominal US reviewed >> Distended gallbladder. Equivocally slightly coarsened slightly increased hepatic echogenicity, if real could indicate hepatocellular disease, otherwise nonspecific. >> will order HIDA surgical recs reviewed >> no intervention LFT elevation >> possible hepatocellular disease epigastric pain resolved advance to regular diet check MRI/MRCP to r/o CBD stones fu cardiology recs for CP ppi BID zofran prn electrolyte correction pain mgmt fu labs Subjective Allergies: Coded Allergies: ASPIRIN (Verified Allergy, Intermediate, Hives, 05/19/18) [place] (Verified Allergy, Unknown, 05/19/18) Subjective patient c/o some epigastric pain Objective Last 24 Hour Vital Signs Date Time Temp Pulse Resp B/P (MAP) Pulse Ox O2 Delivery O2 Flow Rate FiO2 05/23/18 12:00 97.7 74 16 110/68 (82) 93 97.7 05/23/18 09:00 Room Air 05/23/18 08:00 73 05/23/18 08:00 98.4 78 16 127/77 (94) 95 98.4 05/23/18 04:00 98.2 74 18 119/70 (86) 94 98.2 05/23/18 03:36 74 05/23/18 00:00 98.2 79 18 131/74 (93) 93 98.2 05/22/18 23:44 75 05/22/18 22:32 78 05/22/18 21:00 Room Air 05/22/18 20:00 98.2 83 20 138/80 (99) 94 98.2 05/22/18 16:00 98.2 82 20 132/73 (92) 94 98.2 Intake and Output 05/22/18 05/23/18 19:00 07:00 Intake Total 90 ml 125 ml Output Total 400 ml 950 ml Balance -310 ml -825 ml Intake Oral 90 ml 125 ml Output Urine Total 400 ml 950 ml # Voids 1 4 Laboratory Tests 05/23/18 05:30: C-Reactive Protein, Quantitative [Pending] Height (Feet): 5 Height (Inches): 3.00 Weight (Pounds): 134 Objective WDWN NCAT supple CTA RRR Soft ND, (+) epigastric TTP no edema Giovanni Leon MD May 23, 2018 13:33
--- NOTE | 2018-05-23 16:04 | General Progress Note ---
Assessment/Plan Assessment/Plan (1) Abdominal pain (2) Cholecystis Patient to be continued on Tylenol as needed D/w Dr. Langley and he concurred. Subjective Date patient seen: May 23, 2018 Time patient seen: 03:00 - pm Allergies: Coded Allergies: ASPIRIN (Verified Allergy, Intermediate, Hives, 05/19/18) [place] (Verified Allergy, Unknown, 05/19/18) Subjective Constitutional: Reports: weakness HEENT: Reports: no symptoms Cardiovascular: Reports: no symptoms Respiratory: Reports: no symptoms Gastrointestinal/Abdominal: Reports: abdominal pain Genitourinary: Reports: no symptoms Neurologic/Psychiatric: Reports: weakness Endocrine: Reports: no symptoms Hematologic/Lymphatic: Reports: no symptoms Subjective: Patient has been feeling better. No c/o pain at this time. Morphine has been discontinued. Objective Last 24 Hour Vital Signs Date Time Temp Pulse Resp B/P (MAP) Pulse Ox O2 Delivery O2 Flow Rate FiO2 05/23/18 12:00 97.7 74 16 110/68 (82) 93 97.7 05/23/18 09:00 Room Air 05/23/18 08:00 73 05/23/18 08:00 98.4 78 16 127/77 (94) 95 98.4 05/23/18 04:00 98.2 74 18 119/70 (86) 94 98.2 05/23/18 03:36 74 05/23/18 00:00 98.2 79 18 131/74 (93) 93 98.2 05/22/18 23:44 75 05/22/18 22:32 78 05/22/18 21:00 Room Air 05/22/18 20:00 98.2 83 20 138/80 (99) 94 98.2 Intake and Output 05/22/18 05/23/18 19:00 07:00 Intake Total 90 ml 125 ml Output Total 400 ml 950 ml Balance -310 ml -825 ml Intake Oral 90 ml 125 ml Output Urine Total 400 ml 950 ml # Voids 1 4 Laboratory Tests 05/23/18 05:30: C-Reactive Protein, Quantitative 2.4H Height (Feet): 5 Height (Inches): 3.00 Weight (Pounds): 134 Objective General Appearance: no apparent distress, alert EENT: PERRL/EOMI, normal ENT inspection Neck: non-tender, normal alignment Cardiovascular: normal rate, regular rhythm Respiratory/Chest: lungs clear, normal breath sounds Abdomen: tender Extremities: non-tender Edema: trace edema Neurologic: alert, responsive Skin: normal pigmentation Romulo Newell May 23, 2018 16:03
--- NOTE | 2018-05-23 20:03 | General Progress Note ---
Assessment/Plan Status: stable Assessment/Plan # Thrombocytopenia is likely related to potential; equivocally slightly coarsened slightly increased hepatic echogenicity, if real could indicate hepatocellular disease, otherwise nonspecific --> hepatitis pending, hiv negative --> us of the abdomen has been reviewed --> no fevers or chills noted # Leukocytosis due to potential infection, blood cultures at this time are negative --> peripheral smear has been reviewed --> current blood cultures negative # GERD (gastroesophageal reflux disease) --> ppi bid # Abdominal pain --> f/u on surgical recs, for possible cholecystitis --> cleared by surg # Cholecystitis # Chest pain --> appreciate cards recs Subjective Date patient seen: May 23, 2018 ROS Limited/Unobtainable: Yes Allergies: Coded Allergies: ASPIRIN (Verified Allergy, Intermediate, Hives, 05/19/18) [place] (Verified Allergy, Unknown, 05/19/18) Subjective Pt transferred to . No acute events. VS stable. Objective Last 24 Hour Vital Signs Date Time Temp Pulse Resp B/P (MAP) Pulse Ox O2 Delivery O2 Flow Rate FiO2 05/23/18 16:30 97.7 71 16 119/78 (92) 92 97.7 71 05/23/18 12:00 97.7 74 16 110/68 (82) 93 97.7 05/23/18 09:00 Room Air 05/23/18 08:00 73 05/23/18 08:00 98.4 78 16 127/77 (94) 95 98.4 05/23/18 04:00 98.2 74 18 119/70 (86) 94 98.2 05/23/18 03:36 74 05/23/18 00:00 98.2 79 18 131/74 (93) 93 98.2 05/22/18 23:44 75 05/22/18 22:32 78 05/22/18 21:00 Room Air Intake and Output 05/22/18 05/23/18 19:00 07:00 Intake Total 90 ml 125 ml Output Total 400 ml 950 ml Balance -310 ml -825 ml Intake Oral 90 ml 125 ml Output Urine Total 400 ml 950 ml # Voids 1 4 Laboratory Tests 05/23/18 05:30: C-Reactive Protein, Quantitative 2.4H Height (Feet): 5 Height (Inches): 3.00 Weight (Pounds): 134 General Appearance: no apparent distress, alert EENT: PERRL/EOMI Neck: normal alignment Cardiovascular: normal peripheral pulses Respiratory/Chest: no respiratory distress Abdomen: soft Brady Rod MD May 23, 2018 20:03
--- NOTE | 2018-05-23 20:56 | Cardiology Progress Note ---
Assessment/Plan Assessment/Plan 1. Sinus tachycardia, resolved, continue hydration and electrolyte correction. 2. Normal LV systolic function. 3. Transaminitis, hepatocellular disease, GI is following. Subjective Subjective Transferred to the med-surg unit. No cardiac events. Objective Last 24 Hour Vital Signs Date Time Temp Pulse Resp B/P (MAP) Pulse Ox O2 Delivery O2 Flow Rate FiO2 05/23/18 16:30 97.7 71 16 119/78 (92) 92 97.7 71 05/23/18 12:00 97.7 74 16 110/68 (82) 93 97.7 05/23/18 09:00 Room Air 05/23/18 08:00 73 05/23/18 08:00 98.4 78 16 127/77 (94) 95 98.4 05/23/18 04:00 98.2 74 18 119/70 (86) 94 98.2 05/23/18 03:36 74 05/23/18 00:00 98.2 79 18 131/74 (93) 93 98.2 05/22/18 23:44 75 05/22/18 22:32 78 05/22/18 21:00 Room Air Intake and Output 05/22/18 05/23/18 19:00 07:00 Intake Total 90 ml 125 ml Output Total 400 ml 950 ml Balance -310 ml -825 ml Intake Oral 90 ml 125 ml Output Urine Total 400 ml 950 ml # Voids 1 4 2D Echo: LVEF 65%, Grade I LVDD, RVSP 32 mmHg Laboratory Tests Test 05/23/18 05:30 C-Reactive Protein, Quantitative 2.4 mg/dL (0.00-0.90) H Objective HEENT: Atraumatic, normocephalic, PERRLA, EOMI. NECK: Negative JVD, no caroid bruit. PULMONARY: Decreased breath sounds. CARDIOVASCULAR: Regular rate, rhythm. Normal S1S2, no murmurs, gallops or rubs. ABDOMEN: Soft, nontender, and nondistended, no hepatosplenomegaly. EXTREMITIES: No cyanosis, clubbing, or edema. Ra Matta MD May 23, 2018 20:56
--- NOTE | 2018-05-23 21:16 | General Progress Note ---
Assessment/Plan Problem List: (1) GERD (gastroesophageal reflux disease) ICD Codes: K21.9 - Gastro-esophageal reflux disease without esophagitis SNOMED: 315397706 (2) Abdominal pain ICD Codes: R10.9 - Unspecified abdominal pain SNOMED: 46079777 (3) Hypoalbuminemia ICD Codes: E88.09 - Other disorders of plasma-protein metabolism, not elsewhere classified SNOMED: 773906546 (4) Back pain ICD Codes: M54.9 - Dorsalgia, unspecified SNOMED: 062140413 (5) Degenerative disc disease, lumbar ICD Codes: M51.36 - Other intervertebral disc degeneration, lumbar region SNOMED: 72538831 (6) Dehydration ICD Codes: E86.0 - Dehydration SNOMED: 97637067 (7) Sepsis ICD Codes: A41.9 - Sepsis, unspecified organism SNOMED: 66749337 Status: progressing Assessment/Plan back pain abdominal pain favor conservative tx re needs snf for pt and ot dc to snf in am Subjective ROS Limited/Unobtainable: Yes Allergies: Coded Allergies: ASPIRIN (Verified Allergy, Intermediate, Hives, 05/19/18) [place] (Verified Allergy, Unknown, 05/19/18) Objective Last 24 Hour Vital Signs Date Time Temp Pulse Resp B/P (MAP) Pulse Ox O2 Delivery O2 Flow Rate FiO2 05/23/18 20:00 98.6 79 17 126/76 (93) 92 98.6 79 05/23/18 16:30 97.7 71 16 119/78 (92) 92 97.7 71 05/23/18 12:00 97.7 74 16 110/68 (82) 93 97.7 05/23/18 09:00 Room Air 05/23/18 08:00 73 05/23/18 08:00 98.4 78 16 127/77 (94) 95 98.4 05/23/18 04:00 98.2 74 18 119/70 (86) 94 98.2 05/23/18 03:36 74 05/23/18 00:00 98.2 79 18 131/74 (93) 93 98.2 05/22/18 23:44 75 05/22/18 22:32 78 Intake and Output 05/22/18 05/23/18 19:00 07:00 Intake Total 90 ml 125 ml Output Total 400 ml 950 ml Balance -310 ml -825 ml Intake Oral 90 ml 125 ml Output Urine Total 400 ml 950 ml # Voids 1 4 Laboratory Tests 05/23/18 05:30: C-Reactive Protein, Quantitative 2.4H Height (Feet): 5 Height (Inches): 3.00 Weight (Pounds): 134 General Appearance: confused Cardiovascular: regular rhythm Respiratory/Chest: lungs clear Abdomen: soft Mari Levy MD May 23, 2018 21:16
[2018-05-24] VITALS: BP 124/70
[2018-05-24 04:00] VITALS: BP 108/72
[2018-05-24 06:38] LABS: BASOPHILS % (AUTO) 1.2 % (0.0-2.0); EOSINOPHILS % (AUTO) 10.7 % (0.0-3.0); HEMATOCRIT 35.5 % (37.0-47.0); HEMOGLOBIN 12.2 G/DL (12.0-16.0); LYMPHOCYTES % (AUTO) 21.6 % (20.0-45.0); MEAN CORPUSCULAR VOLUME 91 FL (80-99); MONOCYTES % (AUTO) 8.2 % (1.0-10.0); NEUTROPHILS % (AUTO) 58.3 % (45.0-75.0); PLATELET COUNT 166 K/UL (150-450); RED BLOOD COUNT 3.91 M/UL (4.20-5.40); WHITE BLOOD COUNT 7.1 K/UL (4.8-10.8)
[2018-05-24 07:18] LABS: ALANINE AMINOTRANSFERASE 110 U/L (12-78); ALBUMIN 2.9 G/DL (3.4-5.0); ALBUMIN/GLOBULIN RATIO 0.8 (1.0-2.7); ALKALINE PHOSPHATASE 760 U/L (46-116); ANION GAP 9 mmol/L (5-15); ASPARTATE AMINO TRANSFERASE 33 U/L (15-37); BILIRUBIN,TOTAL 0.8 MG/DL (0.2-1.0); BLOOD UREA NITROGEN 11 mg/dL (7-18); CALCIUM 9.4 MG/DL (8.5-10.1); CARBON DIOXIDE 28 MMOL/L (21-32); CHLORIDE 104 MMOL/L (98-107); CREATININE 0.6 MG/DL (0.55-1.30); GAMMA GLUTAMYL TRANSPEPTIDASE 388 U/L (5-85); PHOSPHORUS 4.2 MG/DL (2.5-4.9); POTASSIUM 3.8 MMOL/L (3.5-5.1); SODIUM 141 MMOL/L (136-145)
--- NOTE | 2018-05-24 07:21 | General Progress Note ---
Assessment/Plan Assessment/Plan # Thrombocytopenia is likely related to potential; equivocally slightly coarsened slightly increased hepatic echogenicity, if real could indicate hepatocellular disease, otherwise nonspecific --> hepatitis pending, hiv negative --> us of the abdomen has been reviewed shows slightly increased chogenicity/ hepatocellular disease --> no fevers or chills noted # Leukocytosis due to potential infection, blood cultures at this time are negative --> peripheral smear has been reviewed --> current blood cultures negative # GERD (gastroesophageal reflux disease) --> ppi bid # Abdominal pain --> f/u on surgical recs, for possible cholecystitis --> cleared by surg # Cholecystitis # Transaminitis -- likely due to liver disease --> gi is following # Chest pain --> appreciate cards recs Appreciate consultation greatly! Subjective Constitutional: Denies: no symptoms, chills, diaphoresis, fever, malaise, weakness, other Respiratory: Denies: no symptoms, cough, orthopnea, shortness of breath, SOB with excertion, SOB at rest, sputum, stridor, wheezing, other Gastrointestinal/Abdominal: Denies: no symptoms, abdomen distended, abdominal pain, black stools, tarry stools, blood in stool, constipated, diarrhea, difficulty swallowing, nausea, poor appetite, poor fluid intake, rectal bleeding , vomiting, other Genitourinary: Denies: no symptoms, burning, discharge, frequency, flank pain, hematuria, incontinence, pain, urgency, other Neurologic/Psychiatric: Denies: no symptoms, anxiety, depressed, emotional problems, headache, numbness, paresthesia, pre-existing deficit, seizure, tingling, tremors, weakness, other Endocrine: Denies: no symptoms, excessive sweating, flushing, intolerance to cold, intolerance to heat, increased hunger, increased thirst, increased urine, unexplained weight gain, unexplained weight loss, other Hematologic/Lymphatic: Denies: no symptoms, anemia, easy bleeding, easy bruising, other Allergies: Coded Allergies: ASPIRIN (Verified Allergy, Intermediate, Hives, 05/19/18) [place] (Verified Allergy, Unknown, 05/19/18) Subjective Pt transferred to . No acute events. VS stable. Objective Last 24 Hour Vital Signs Date Time Temp Pulse Resp B/P (MAP) Pulse Ox O2 Delivery O2 Flow Rate FiO2 05/24/18 04:00 98.8 86 18 108/72 (84) 94 98.8 86 05/24/18 00:00 98.8 79 18 124/70 (88) 92 98.8 79 05/23/18 21:00 Nasal Cannula 2.0 05/23/18 20:00 98.6 79 17 126/76 (93) 92 98.6 79 05/23/18 16:30 97.7 71 16 119/78 (92) 92 97.7 71 05/23/18 12:00 97.7 74 16 110/68 (82) 93 97.7 05/23/18 09:00 Room Air 05/23/18 08:00 73 05/23/18 08:00 98.4 78 16 127/77 (94) 95 98.4 Intake and Output 05/23/18 05/24/18 19:00 07:00 Intake Total 480 ml Balance 480 ml Intake Oral 480 ml # Voids 3 2 Laboratory Tests 05/24/18 05:35: White Blood Count 7.1, Red Blood Count 3.91L, Hemoglobin 12.2, Hematocrit 35.5L , Mean Corpuscular Volume 91, Mean Corpuscular Hemoglobin 31.1H, Mean Corpuscular Hemoglobin Concent 34.3, Red Cell Distribution Width 12.0, Platelet Count 166, Mean Platelet Volume 9.2, Neutrophils (%) (Auto) 58.3, Lymphocytes (% ) (Auto) 21.6, Monocytes (%) (Auto) 8.2, Eosinophils (%) (Auto) 10.7H, Basophils (%) (Auto) 1.2, Sodium Level [Pending], Potassium Level [Pending], Chloride Level [Pending], Carbon Dioxide Level [Pending], Blood Urea Nitrogen [ Pending], Creatinine [Pending], Estimat Glomerular Filtration Rate [Pending], Glucose Level [Pending], Uric Acid [Pending], Calcium Level [Pending], Phosphorus Level [Pending], Magnesium Level [Pending], Total Bilirubin [Pending] , Gamma Glutamyl Transpeptidase [Pending], Aspartate Amino Transf (AST/SGOT) [ Pending], Alanine Aminotransferase (ALT/SGPT) [Pending], Alkaline Phosphatase [ Pending], Pro-B-Type Natriuretic Peptide [Pending], Total Protein [Pending], Albumin [Pending], Globulin [Pending] Height (Feet): 5 Height (Inches): 3.00 Weight (Pounds): 134 General Appearance: no apparent distress EENT: TMs normal Neck: normal inspection Cardiovascular: regular rhythm Respiratory/Chest: normal breath sounds Abdomen: non tender Extremities: non-tender Edema: no edema noted Leg (L), no edema noted Leg (R) Edema: trace edema Neurologic: no motor/sensory deficits Brady Rod MD May 24, 2018 07:21
--- NOTE | 2018-05-24 07:40 | Cardiology Report ---
APPROVED REPORT EXAM: Two-dimensional and M-mode echocardiogram with Doppler and color Doppler. INDICATION Chest Pain M-Mode DIMENSIONS IVSd1.1 (0.7-1.1cm)Left Atrium (MM)3.0 (1.6-4.0cm) LVDd4.3 (3.5-5.6cm)Aortic Root3.0 (2.0-3.7cm) PWd0.9 (0.7-1.1cm)Aortic Cusp Exc.1.6 (1.5-2.0cm) LVDs2.8 (2.5-4.0cm) PWs1.3 cm Normal left ventricular chamber size, systolic function and wall motion. Left ventricular ejection fraction estimated to be 60-65 %. No evidence of left ventricular hypertrophy. No evidence of pericardial effusion. All other cardiac chamber sizes are within normal limits. Mild focal aortic valve sclerosis with adequate cusp excursion. Mildly thickened mitral valve leaflets with normal excursion. Mitral annulus and aortic root calcification. Normal pulmonic valve structure. Normal tricuspid valve structure. IVC at normal size with physiologic collapse. A color flow and spectral Doppler study was performed and revealed: Trace aortic regurgitation. Trace to mild mitral regurgitation. Mitral diastolic velocities suggest reduced left ventricular relaxation c/w mild LV diastolic dysfunction (Grade I ). Mild tricuspid regurgitation. Tricuspid systolic velocities suggests peak right ventricular systolic pressure of 32 mmHg. Trace pulmonic regurgitation present.
[2018-05-24 08:00] VITALS: BP 101/60
--- NOTE | 2018-05-24 08:49 | General Progress Note ---
Assessment/Plan Assessment/Plan (1) Abdominal pain (2) Cholecystis Patient to be continued on Tylenol as needed D/w Dr. Langley and he concurred. Subjective Date patient seen: May 24, 2018 Time patient seen: 07:00 - am Allergies: Coded Allergies: ASPIRIN (Verified Allergy, Intermediate, Hives, 05/19/18) [place] (Verified Allergy, Unknown, 05/19/18) Subjective Constitutional: Reports: weakness HEENT: Reports: no symptoms Cardiovascular: Reports: no symptoms Respiratory: Reports: no symptoms Gastrointestinal/Abdominal: Reports: abdominal pain Genitourinary: Reports: no symptoms Neurologic/Psychiatric: Reports: weakness Endocrine: Reports: no symptoms Hematologic/Lymphatic: Reports: no symptoms Subjective: Patient shows no signs of pain or distress. Will be going for MRI of Abdomen this morning. Objective Last 24 Hour Vital Signs Date Time Temp Pulse Resp B/P (MAP) Pulse Ox O2 Delivery O2 Flow Rate FiO2 05/24/18 04:00 98.8 86 18 108/72 (84) 94 98.8 86 05/24/18 00:00 98.8 79 18 124/70 (88) 92 98.8 79 05/23/18 21:00 Nasal Cannula 2.0 05/23/18 20:00 98.6 79 17 126/76 (93) 92 98.6 79 05/23/18 16:30 97.7 71 16 119/78 (92) 92 97.7 71 05/23/18 12:00 97.7 74 16 110/68 (82) 93 97.7 05/23/18 09:00 Room Air Intake and Output 05/23/18 05/24/18 19:00 07:00 Intake Total 480 ml Balance 480 ml Intake Oral 480 ml # Voids 3 2 Laboratory Tests 05/24/18 05:35: White Blood Count 7.1, Red Blood Count 3.91L, Hemoglobin 12.2, Hematocrit 35.5L , Mean Corpuscular Volume 91, Mean Corpuscular Hemoglobin 31.1H, Mean Corpuscular Hemoglobin Concent 34.3, Red Cell Distribution Width 12.0, Platelet Count 166, Mean Platelet Volume 9.2, Neutrophils (%) (Auto) 58.3, Lymphocytes (% ) (Auto) 21.6, Monocytes (%) (Auto) 8.2, Eosinophils (%) (Auto) 10.7H, Basophils (%) (Auto) 1.2, Sodium Level 141, Potassium Level 3.8, Chloride Level 104, Carbon Dioxide Level 28, Anion Gap 9, Blood Urea Nitrogen 11, Creatinine 0.6, Estimat Glomerular Filtration Rate , Glucose Level 96, Uric Acid 2.8, Calcium Level 9.4, Phosphorus Level 4.2, Magnesium Level 1.9, Total Bilirubin 0.8, Gamma Glutamyl Transpeptidase 388H, Aspartate Amino Transf (AST/SGOT) 33, Alanine Aminotransferase (ALT/SGPT) 110H, Alkaline Phosphatase 760H, Pro-B-Type Natriuretic Peptide 273H, Total Protein 6.7, Albumin 2.9L, Globulin 3.8, Albumin /Globulin Ratio 0.8L Height (Feet): 5 Height (Inches): 3.00 Weight (Pounds): 134 Objective General Appearance: no apparent distress, alert EENT: PERRL/EOMI, normal ENT inspection Neck: non-tender, normal alignment Cardiovascular: normal rate, regular rhythm Respiratory/Chest: lungs clear, normal breath sounds Abdomen: tender Extremities: non-tender Edema: trace edema Neurologic: alert, responsive Skin: normal pigmentation Romulo Newell May 24, 2018 08:49
[2018-05-24] MEDS: Heparin 5000 units/ml inj SUBQ SCH (10:05)
[2018-05-24] MEDS ORDERED: Pneumococcal Vaccine 25mcg/0.5ml IM ONE (11:00)
[2018-05-24] MEDS ORDERED: Influenza Vaccine Quadrivalent 0.5ml IM ONE (11:00)
--- NOTE | 2018-05-24 11:46 | Nephrology Progress Note ---
Assessment/Plan Problem List: (1) Dehydration (2) Hematuria (3) Cholecystitis (4) Abdominal pain (5) Hypoalbuminemia Assessment dehydration- High LFTs , Cholecyctitis HTN Hematuria Low Albumin Plan no antibiotics- cultures negative K and Phos IV as needed low fat diest Protonix PO monitor LFTs per GI urine culture results negative per orders med surg Ok to Dc ? Subjective ROS Limited/Unobtainable: No Subjective no abd pain Objective Objective Last 24 Hour Vital Signs Date Time Temp Pulse Resp B/P (MAP) Pulse Ox O2 Delivery O2 Flow Rate FiO2 05/24/18 08:00 98.3 87 18 101/60 (74) 94 98.3 87 05/24/18 04:00 98.8 86 18 108/72 (84) 94 98.8 86 05/24/18 00:00 98.8 79 18 124/70 (88) 92 98.8 79 05/23/18 21:00 Nasal Cannula 2.0 05/23/18 20:00 98.6 79 17 126/76 (93) 92 98.6 79 05/23/18 16:30 97.7 71 16 119/78 (92) 92 97.7 71 05/23/18 12:00 97.7 74 16 110/68 (82) 93 97.7 Intake and Output 05/23/18 05/24/18 19:00 07:00 Intake Total 480 ml Balance 480 ml Intake Oral 480 ml # Voids 3 2 Laboratory Tests 05/24/18 05:35: White Blood Count 7.1, Red Blood Count 3.91L, Hemoglobin 12.2, Hematocrit 35.5L , Mean Corpuscular Volume 91, Mean Corpuscular Hemoglobin 31.1H, Mean Corpuscular Hemoglobin Concent 34.3, Red Cell Distribution Width 12.0, Platelet Count 166, Mean Platelet Volume 9.2, Neutrophils (%) (Auto) 58.3, Lymphocytes (% ) (Auto) 21.6, Monocytes (%) (Auto) 8.2, Eosinophils (%) (Auto) 10.7H, Basophils (%) (Auto) 1.2, Sodium Level 141, Potassium Level 3.8, Chloride Level 104, Carbon Dioxide Level 28, Anion Gap 9, Blood Urea Nitrogen 11, Creatinine 0.6, Estimat Glomerular Filtration Rate , Glucose Level 96, Uric Acid 2.8, Calcium Level 9.4, Phosphorus Level 4.2, Magnesium Level 1.9, Total Bilirubin 0.8, Gamma Glutamyl Transpeptidase 388H, Aspartate Amino Transf (AST/SGOT) 33, Alanine Aminotransferase (ALT/SGPT) 110H, Alkaline Phosphatase 760H, Pro-B-Type Natriuretic Peptide 273H, Total Protein 6.7, Albumin 2.9L, Globulin 3.8, Albumin /Globulin Ratio 0.8L Height (Feet): 5 Height (Inches): 3.00 Weight (Pounds): 134 General Appearance: no apparent distress Cardiovascular: normal rate Respiratory/Chest: lungs clear Abdomen: soft Objective no change Joshua Quinn MD May 24, 2018 11:46
--- NOTE | 2018-05-24 11:55 | GI Progress Note ---
Assessment/Plan Problems: (1) Abdominal pain ICD Codes: R10.9 - Unspecified abdominal pain SNOMED: 23504915 (2) GERD (gastroesophageal reflux disease) ICD Codes: K21.9 - Gastro-esophageal reflux disease without esophagitis SNOMED: 799908417 (3) Cholecystitis ICD Codes: K81.9 - Cholecystitis, unspecified SNOMED: 95703098 Status: stable Status Narrative Discussed with Dr. Swenson. Assessment/Plan abdominal US reviewed >> Distended gallbladder. Equivocally slightly coarsened slightly increased hepatic echogenicity, if real could indicate hepatocellular disease, otherwise nonspecific. >> will order HIDA surgical recs reviewed >> no intervention LFT elevation >> possible hepatocellular disease epigastric pain resolved okay for DC per GI standpoint advance to regular diet fu cardiology recs for CP ppi BID zofran prn electrolyte correction pain mgmt fu labs The patient was seen and examined at bedside and all new and available data was reviewed in the patients chart. I agree with the above findings, impression and plan. (Patient seen earlier today. Signature stamp does not reflect patient encounter time.). - Cali Swenson MD Subjective Subjective epigastric pain resolved wants to go home decreased appetite Objective Last 24 Hour Vital Signs Date Time Temp Pulse Resp B/P (MAP) Pulse Ox O2 Delivery O2 Flow Rate FiO2 05/24/18 08:00 98.3 87 18 101/60 (74) 94 98.3 87 05/24/18 04:00 98.8 86 18 108/72 (84) 94 98.8 86 05/24/18 00:00 98.8 79 18 124/70 (88) 92 98.8 79 05/23/18 21:00 Nasal Cannula 2.0 05/23/18 20:00 98.6 79 17 126/76 (93) 92 98.6 79 05/23/18 16:30 97.7 71 16 119/78 (92) 92 97.7 71 05/23/18 12:00 97.7 74 16 110/68 (82) 93 97.7 Intake and Output 05/23/18 05/24/18 19:00 07:00 Intake Total 480 ml Balance 480 ml Intake Oral 480 ml # Voids 3 2 Laboratory Tests Test 05/24/18 05:35 White Blood Count 7.1 K/UL (4.8-10.8) Red Blood Count 3.91 M/UL (4.20-5.40) L Hemoglobin 12.2 G/DL (12.0-16.0) Hematocrit 35.5 % (37.0-47.0) L Mean Corpuscular Volume 91 FL (80-99) Mean Corpuscular Hemoglobin 31.1 PG (27.0-31.0) H Mean Corpuscular Hemoglobin Concent 34.3 G/DL (32.0-36.0) Red Cell Distribution Width 12.0 % (11.6-14.8) Platelet Count 166 K/UL (150-450) Mean Platelet Volume 9.2 FL (6.5-10.1) Neutrophils (%) (Auto) 58.3 % (45.0-75.0) Lymphocytes (%) (Auto) 21.6 % (20.0-45.0) Monocytes (%) (Auto) 8.2 % (1.0-10.0) Eosinophils (%) (Auto) 10.7 % (0.0-3.0) H Basophils (%) (Auto) 1.2 % (0.0-2.0) Sodium Level 141 MMOL/L (136-145) Potassium Level 3.8 MMOL/L (3.5-5.1) Chloride Level 104 MMOL/L (98-107) Carbon Dioxide Level 28 MMOL/L (21-32) Anion Gap 9 mmol/L (5-15) Blood Urea Nitrogen 11 mg/dL (7-18) Creatinine 0.6 MG/DL (0.55-1.30) Estimat Glomerular Filtration Rate mL/min (>60) Glucose Level 96 MG/DL (74-106) Uric Acid 2.8 MG/DL (2.6-7.2) Calcium Level 9.4 MG/DL (8.5-10.1) Phosphorus Level 4.2 MG/DL (2.5-4.9) Magnesium Level 1.9 MG/DL (1.8-2.4) Total Bilirubin 0.8 MG/DL (0.2-1.0) Gamma Glutamyl Transpeptidase 388 U/L (5-85) H Aspartate Amino Transf (AST/SGOT) 33 U/L (15-37) Alanine Aminotransferase (ALT/SGPT) 110 U/L (12-78) H Alkaline Phosphatase 760 U/L (46-116) H Pro-B-Type Natriuretic Peptide 273 pg/mL (0-125) H Total Protein 6.7 G/DL (6.4-8.2) Albumin 2.9 G/DL (3.4-5.0) L Globulin 3.8 g/dL Albumin/Globulin Ratio 0.8 (1.0-2.7) L Height (Feet): 5 Height (Inches): 3.00 Weight (Pounds): 134 General Appearance: WD/WN, no apparent distress, alert Cardiovascular: normal rate Respiratory/Chest: normal breath sounds, no respiratory distress Abdominal Exam: normal bowel sounds, non tender, soft Extremities: normal range of motion, non-tender Holly Mckee NP May 24, 2018 11:55
[2018-05-24 12:00] VITALS: BP 103/63
--- NOTE | 2018-05-24 12:26 | Diagnostic Imaging Report ---
Indication: Distended gallbladder. Abdominal pain. Technique: MRI of the abdomen was performed in a 1.5 [place] magnet. Pulse sequences obtained include coronal and axial T2 single shot fast spin echo breathhold and respiratory gated coronal T2 3-D M.R.C.P.; this data set was displayed in different projections or MIPs. In addition, multiple coronal oblique thin T2 weighted, fat saturated SE sequences obtained through the CBD. Comparison: HIDA scan 05/21/2018 Findings: The gallbladder is moderately distended. The CBD is clear. There is no evidence of choledocholithiasis although the study is significantly degraded by motion. The left hepatic and right hepatic biliary ducts converge or join fairly low below the liver parenchyma. This is a normal variant. The main pancreatic duct is nondilated. IVC is relatively collapsed which is sometimes a sign of low intravascular volume. There are multiple tiny hepatic cysts within both kidneys. The largest single cyst is in the right kidney projecting laterally measuring about 1.2 cm. IMPRESSION: No evidence of choledocholithiasis definitely identified. The study is limited by breathing motion. Distended gallbladder. No gallstones seen. [place] of the right and left hepatic ducts occurs low in location which is a normal variant. Bilateral renal cysts
--- NOTE | 2018-05-24 12:49 | Infectious Diseases Prog Note ---
Assessment/Plan Assessment/Plan A 1. acute cholecystitis, ruled out 2. GERD 3. leucocytosis resolved 4. elevated transaminase, hepatocellular disease P: Observe off antibiotic Abdominal MRI ; negative for stone Agree with discharge Subjective ROS Limited/Unobtainable: Yes Gastrointestinal/Abdominal: Reports: other - slight epigastric pain Allergies: Coded Allergies: ASPIRIN (Verified Allergy, Intermediate, Hives, 05/19/18) [place] (Verified Allergy, Unknown, 05/19/18) Objective Vital Signs Last 24 Hour Vital Signs Date Time Temp Pulse Resp B/P (MAP) Pulse Ox O2 Delivery O2 Flow Rate FiO2 05/24/18 08:00 98.3 87 18 101/60 (74) 94 98.3 87 05/24/18 04:00 98.8 86 18 108/72 (84) 94 98.8 86 05/24/18 00:00 98.8 79 18 124/70 (88) 92 98.8 79 05/23/18 21:00 Nasal Cannula 2.0 05/23/18 20:00 98.6 79 17 126/76 (93) 92 98.6 79 05/23/18 16:30 97.7 71 16 119/78 (92) 92 97.7 71 Height (Feet): 5 Height (Inches): 3.00 Weight (Pounds): 134 HEENT: mucous membranes moist Respiratory/Chest: lungs clear Cardiovascular: normal rate Abdomen: soft, non tender Extremities: no edema Neurologic/Psychiatric: alert, responsive Laboratory Tests Test 05/24/18 05:35 White Blood Count 7.1 K/UL (4.8-10.8) Red Blood Count 3.91 M/UL (4.20-5.40) L Hemoglobin 12.2 G/DL (12.0-16.0) Hematocrit 35.5 % (37.0-47.0) L Mean Corpuscular Volume 91 FL (80-99) Mean Corpuscular Hemoglobin 31.1 PG (27.0-31.0) H Mean Corpuscular Hemoglobin Concent 34.3 G/DL (32.0-36.0) Red Cell Distribution Width 12.0 % (11.6-14.8) Platelet Count 166 K/UL (150-450) Mean Platelet Volume 9.2 FL (6.5-10.1) Neutrophils (%) (Auto) 58.3 % (45.0-75.0) Lymphocytes (%) (Auto) 21.6 % (20.0-45.0) Monocytes (%) (Auto) 8.2 % (1.0-10.0) Eosinophils (%) (Auto) 10.7 % (0.0-3.0) H Basophils (%) (Auto) 1.2 % (0.0-2.0) Sodium Level 141 MMOL/L (136-145) Potassium Level 3.8 MMOL/L (3.5-5.1) Chloride Level 104 MMOL/L (98-107) Carbon Dioxide Level 28 MMOL/L (21-32) Anion Gap 9 mmol/L (5-15) Blood Urea Nitrogen 11 mg/dL (7-18) Creatinine 0.6 MG/DL (0.55-1.30) Estimat Glomerular Filtration Rate mL/min (>60) Glucose Level 96 MG/DL (74-106) Uric Acid 2.8 MG/DL (2.6-7.2) Calcium Level 9.4 MG/DL (8.5-10.1) Phosphorus Level 4.2 MG/DL (2.5-4.9) Magnesium Level 1.9 MG/DL (1.8-2.4) Total Bilirubin 0.8 MG/DL (0.2-1.0) Gamma Glutamyl Transpeptidase 388 U/L (5-85) H Aspartate Amino Transf (AST/SGOT) 33 U/L (15-37) Alanine Aminotransferase (ALT/SGPT) 110 U/L (12-78) H Alkaline Phosphatase 760 U/L (46-116) H Pro-B-Type Natriuretic Peptide 273 pg/mL (0-125) H Total Protein 6.7 G/DL (6.4-8.2) Albumin 2.9 G/DL (3.4-5.0) L Globulin 3.8 g/dL Albumin/Globulin Ratio 0.8 (1.0-2.7) L Current Medications Medications (Trade) Dose Ordered Sig/Nori Route PRN Reason Start Time Stop Time Status Last Admin Dose Admin Acetaminophen (Tylenol) 650 mg Q6H PRN ORAL Mild Pain/Temp > 100.5 05/23/18 16:00 06/22/18 15:59 Heparin Sodium (Porcine) (Heparin 5000 units/ml) 5,000 units Q12HR SUBQ 05/23/18 21:00 06/18/18 20:59 05/24/18 10:05 Metoclopramide HCl (Reglan) 5 mg THREE TIMES A DAY ORAL 05/23/18 18:00 06/21/18 12:59 05/24/18 09:58 Pantoprazole (Protonix) 40 mg DAILY ORAL 05/24/18 09:00 06/20/18 20:59 05/24/18 09:58 Ryland Grigsby MD May 24, 2018 12:49
[2018-05-24 16:00] VITALS: BP 124/61
--- NOTE | 2018-05-24 23:02 | Cardiology Progress Note ---
Assessment/Plan Assessment/Plan 1. Sinus tachycardia, resolved, continue hydration and electrolyte correction. 2. Normal LV systolic function. 3. Transaminitis, hepatocellular disease, OK to be discharged from the cardiac standpoint. Subjective Subjective No cardiac events. Objective Last 24 Hour Vital Signs Date Time Temp Pulse Resp B/P (MAP) Pulse Ox O2 Delivery O2 Flow Rate FiO2 05/24/18 16:00 97.7 94 19 124/61 (82) 95 97.7 87 05/24/18 12:00 98.6 77 19 103/63 (76) 95 98.6 87 05/24/18 09:00 Nasal Cannula 2.0 05/24/18 08:00 98.3 87 18 101/60 (74) 94 98.3 87 05/24/18 04:00 98.8 86 18 108/72 (84) 94 98.8 86 05/24/18 00:00 98.8 79 18 124/70 (88) 92 98.8 79 Intake and Output 05/23/18 05/24/18 19:00 07:00 Intake Total 480 ml Balance 480 ml Intake Oral 480 ml # Voids 3 2 2D Echo: LVEF 65%, Grade I LVDD, RVSP 32 mmHg Laboratory Tests Test 05/24/18 05:35 White Blood Count 7.1 K/UL (4.8-10.8) Red Blood Count 3.91 M/UL (4.20-5.40) L Hemoglobin 12.2 G/DL (12.0-16.0) Hematocrit 35.5 % (37.0-47.0) L Mean Corpuscular Volume 91 FL (80-99) Mean Corpuscular Hemoglobin 31.1 PG (27.0-31.0) H Mean Corpuscular Hemoglobin Concent 34.3 G/DL (32.0-36.0) Red Cell Distribution Width 12.0 % (11.6-14.8) Platelet Count 166 K/UL (150-450) Mean Platelet Volume 9.2 FL (6.5-10.1) Neutrophils (%) (Auto) 58.3 % (45.0-75.0) Lymphocytes (%) (Auto) 21.6 % (20.0-45.0) Monocytes (%) (Auto) 8.2 % (1.0-10.0) Eosinophils (%) (Auto) 10.7 % (0.0-3.0) H Basophils (%) (Auto) 1.2 % (0.0-2.0) Sodium Level 141 MMOL/L (136-145) Potassium Level 3.8 MMOL/L (3.5-5.1) Chloride Level 104 MMOL/L (98-107) Carbon Dioxide Level 28 MMOL/L (21-32) Anion Gap 9 mmol/L (5-15) Blood Urea Nitrogen 11 mg/dL (7-18) Creatinine 0.6 MG/DL (0.55-1.30) Estimat Glomerular Filtration Rate mL/min (>60) Glucose Level 96 MG/DL (74-106) Uric Acid 2.8 MG/DL (2.6-7.2) Calcium Level 9.4 MG/DL (8.5-10.1) Phosphorus Level 4.2 MG/DL (2.5-4.9) Magnesium Level 1.9 MG/DL (1.8-2.4) Total Bilirubin 0.8 MG/DL (0.2-1.0) Gamma Glutamyl Transpeptidase 388 U/L (5-85) H Aspartate Amino Transf (AST/SGOT) 33 U/L (15-37) Alanine Aminotransferase (ALT/SGPT) 110 U/L (12-78) H Alkaline Phosphatase 760 U/L (46-116) H Pro-B-Type Natriuretic Peptide 273 pg/mL (0-125) H Total Protein 6.7 G/DL (6.4-8.2) Albumin 2.9 G/DL (3.4-5.0) L Globulin 3.8 g/dL Albumin/Globulin Ratio 0.8 (1.0-2.7) L Objective HEENT: Atraumatic, normocephalic, PERRLA, EOMI. NECK: Negative JVD, no caroid bruit. PULMONARY: Decreased breath sounds. CARDIOVASCULAR: Regular rate, rhythm. Normal S1S2, no murmurs, gallops or rubs. ABDOMEN: Soft, nontender, and nondistended, no hepatosplenomegaly. EXTREMITIES: No cyanosis, clubbing, or edema. Ra Matta MD May 24, 2018 23:02
--- NOTE | 2018-05-24 23:57 | Psych Consult Progress Note ---
Psych Consult Progress Note Consult 05/23/18 Anxiety d/o Ativan prn Provided ro/st Vital Signs Last 24 Hour Vital Signs Date Time Temp Pulse Resp B/P (MAP) Pulse Ox O2 Delivery O2 Flow Rate FiO2 05/24/18 16:00 97.7 94 19 124/61 (82) 95 97.7 87 05/24/18 12:00 98.6 77 19 103/63 (76) 95 98.6 87 05/24/18 09:00 Nasal Cannula 2.0 05/24/18 08:00 98.3 87 18 101/60 (74) 94 98.3 87 05/24/18 04:00 98.8 86 18 108/72 (84) 94 98.8 86 05/24/18 00:00 98.8 79 18 124/70 (88) 92 98.8 79 Labs Laboratory Tests Test 05/24/18 05:35 White Blood Count 7.1 K/UL (4.8-10.8) Red Blood Count 3.91 M/UL (4.20-5.40) L Hemoglobin 12.2 G/DL (12.0-16.0) Hematocrit 35.5 % (37.0-47.0) L Mean Corpuscular Volume 91 FL (80-99) Mean Corpuscular Hemoglobin 31.1 PG (27.0-31.0) H Mean Corpuscular Hemoglobin Concent 34.3 G/DL (32.0-36.0) Red Cell Distribution Width 12.0 % (11.6-14.8) Platelet Count 166 K/UL (150-450) Mean Platelet Volume 9.2 FL (6.5-10.1) Neutrophils (%) (Auto) 58.3 % (45.0-75.0) Lymphocytes (%) (Auto) 21.6 % (20.0-45.0) Monocytes (%) (Auto) 8.2 % (1.0-10.0) Eosinophils (%) (Auto) 10.7 % (0.0-3.0) H Basophils (%) (Auto) 1.2 % (0.0-2.0) Sodium Level 141 MMOL/L (136-145) Potassium Level 3.8 MMOL/L (3.5-5.1) Chloride Level 104 MMOL/L (98-107) Carbon Dioxide Level 28 MMOL/L (21-32) Anion Gap 9 mmol/L (5-15) Blood Urea Nitrogen 11 mg/dL (7-18) Creatinine 0.6 MG/DL (0.55-1.30) Estimat Glomerular Filtration Rate mL/min (>60) Glucose Level 96 MG/DL (74-106) Uric Acid 2.8 MG/DL (2.6-7.2) Calcium Level 9.4 MG/DL (8.5-10.1) Phosphorus Level 4.2 MG/DL (2.5-4.9) Magnesium Level 1.9 MG/DL (1.8-2.4) Total Bilirubin 0.8 MG/DL (0.2-1.0) Gamma Glutamyl Transpeptidase 388 U/L (5-85) H Aspartate Amino Transf (AST/SGOT) 33 U/L (15-37) Alanine Aminotransferase (ALT/SGPT) 110 U/L (12-78) H Alkaline Phosphatase 760 U/L (46-116) H Pro-B-Type Natriuretic Peptide 273 pg/mL (0-125) H Total Protein 6.7 G/DL (6.4-8.2) Albumin 2.9 G/DL (3.4-5.0) L Globulin 3.8 g/dL Albumin/Globulin Ratio 0.8 (1.0-2.7) L Alesia Cardenas MD May 24, 2018 23:57
--- NOTE | 2018-05-24 23:57 | General Progress Note ---
Assessment/Plan Status: stable, progressing Assessment/Plan Anxiety d/o Ativan prn Provided ro/st Subjective Date patient seen: May 24, 2018 Neurologic/Psychiatric: Reports: anxiety, depressed Allergies: Coded Allergies: ASPIRIN (Verified Allergy, Intermediate, Hives, 05/19/18) [place] (Verified Allergy, Unknown, 05/19/18) Objective Last 24 Hour Vital Signs Date Time Temp Pulse Resp B/P (MAP) Pulse Ox O2 Delivery O2 Flow Rate FiO2 05/24/18 16:00 97.7 94 19 124/61 (82) 95 97.7 87 05/24/18 12:00 98.6 77 19 103/63 (76) 95 98.6 87 05/24/18 09:00 Nasal Cannula 2.0 05/24/18 08:00 98.3 87 18 101/60 (74) 94 98.3 87 05/24/18 04:00 98.8 86 18 108/72 (84) 94 98.8 86 05/24/18 00:00 98.8 79 18 124/70 (88) 92 98.8 79 Intake and Output 05/23/18 05/24/18 19:00 07:00 Intake Total 480 ml Balance 480 ml Intake Oral 480 ml # Voids 3 2 Laboratory Tests 05/24/18 05:35: White Blood Count 7.1, Red Blood Count 3.91L, Hemoglobin 12.2, Hematocrit 35.5L , Mean Corpuscular Volume 91, Mean Corpuscular Hemoglobin 31.1H, Mean Corpuscular Hemoglobin Concent 34.3, Red Cell Distribution Width 12.0, Platelet Count 166, Mean Platelet Volume 9.2, Neutrophils (%) (Auto) 58.3, Lymphocytes (% ) (Auto) 21.6, Monocytes (%) (Auto) 8.2, Eosinophils (%) (Auto) 10.7H, Basophils (%) (Auto) 1.2, Sodium Level 141, Potassium Level 3.8, Chloride Level 104, Carbon Dioxide Level 28, Anion Gap 9, Blood Urea Nitrogen 11, Creatinine 0.6, Estimat Glomerular Filtration Rate , Glucose Level 96, Uric Acid 2.8, Calcium Level 9.4, Phosphorus Level 4.2, Magnesium Level 1.9, Total Bilirubin 0.8, Gamma Glutamyl Transpeptidase 388H, Aspartate Amino Transf (AST/SGOT) 33, Alanine Aminotransferase (ALT/SGPT) 110H, Alkaline Phosphatase 760H, Pro-B-Type Natriuretic Peptide 273H, Total Protein 6.7, Albumin 2.9L, Globulin 3.8, Albumin /Globulin Ratio 0.8L Height (Feet): 5 Height (Inches): 3.00 Weight (Pounds): 134 General Appearance: WD/WN, no apparent distress, alert Alesia Cardenas MD May 24, 2018 23:57
--- NOTE | 2018-05-27 10:01 | Discharge Summary ---
Discharge Summary Discharge Summary _ DATE OF ADMISSION: 05/18/2018 DATE OF DISCHARGE: 05/24/2018 REASON FOR ADMISSION: 82 years old female with past medical history of hypertension, recent CVA with right-sided deficits, was brought by paramedics with complaints of fever for several days. Patient had generalized body aches. She reported some difficulty with breathing and abdominal pain, radiating to her back. No black or bloody stools, no nausea ,no vomiting. No chest pain. Upon evaluation in emergency room patient was afebrile, but tachycardic . Laboratory workup revealed leukocytosis, stable hemoglobin and hematocrit, platelets 117 . AST 241 , CEV216, alkaline phosphatase 317,stable lipase. Troponin negative. EKG revealed sinus tachycardia ,no acute ischemic changes . Urinalysis revealed hematuria, no evidence of UTI . Multiply electrolyte abnormalities, including potassium 3.2, sodium 134 , magnesium 1.6, phosphorus 2.1 , stable renal parameters. Chest x-ray revealed no acute cardiopulmonary pathology. CT of the abdomen and pelvis revealed erythematous gallbladder wall without evidence of gallstones or pericholecystic inflammation with the differentials including acalculous acute cholecystitis, acute cholecystitis secondary to occult calculus, gallbladder wall edema secondary to adjacent hepatocellular inflammation or due to hemodynamic causes. Patient subsequently was admitted with diagnoses of possible sepsis, possible cholecystitis, transaminitis, abdominal pain, electrolytes abnormalities, recent CVA. CONSULTANTS: validation engineer Dr. Matta ID specialist Dr. Botello GI specialist clinical nursing director Dr. Quinn rigger up/oncologist Dr. Rod surgery psychiatrist pain specialist Dr. Langley HOSPITAL COURSE: Patient admitted and started on IV fluids and empiric antibiotics. GI specialist and surgery t closely followed. Abdominal ultrasound revealed distended gallbladder , but no evidence of gallstones. Minimal gallbladder wall thickening. It also showed slightly coarsened and increased hepatic echogenicity, possibly indicative of hepatocellular disease. Echocardiogram was done in preparation for possible surgical intervention for cardiac clearance , which revealed preserved ejection fraction of 60-65%, no evidence of left ventricular hypertrophy and right ventricular systolic pressure of 32. HIDA scan was negative for evidence of acute cholecystitis. No cystic or common bile duct obstruction was noted. MRCP revealed no evidence of choledocholithiasis. Distended gallbladder without evidence of gallstones. LFT were closely monitored during the patient stay in the hospital. Prior to discharge AST down to normal 33 , ALT down to 110. Hepatitis panel still pending. HIV test was negative. Transaminitis was likely secondary to possible hepatocellular disease. Surgeon and GI closely followed. Per surgeon, no surgical intervention was necessary and cholecystitis was ruled out. GI specialist closely followed. Patient was slowly started on diet as tolerated . Antiemetics provided as needed. Patient was on PPI twice a day. Pain management was addressed as needed as per pain specialist recommendations. Epigastric pain resolved. Patient initially was on intravenous antibiotics. Blood and urine culture were negative. Leukocytosis resolved, no fevers. Antibiotic discontinued, and infectious disease specialist recommended to observe patient off antibiotics. Household Manager followed for cardiac clearance for earlier anticipated surgery. Patient initially had sinus tachycardia , which was likely due to dehydration and resolved with IV hydration. Normal left ventricular systolic function seen on echocardiogram. Edi Consultant closely followed. Renal parameters were closely monitored, remained stable. Electrolytes corrected as needed. Prior to discharge all electrolytes stable. Urinalysis was rechecked and still showed hematuria. Hemoglobin and hematocrit remained stable. Patient was not on any aspirin ,Plavix, heparin or blood thinners. Outpatient urology evaluation for hematuria was recommended. Rug Cutter Helper closely followed .Thrombocytopenia resolved , was likely due to possible hepatocellular disease. Psychiatrist followed and diagnosed patient with anxiety disorder. Ativan was on board as needed, Patient was working with physical and occupational therapists. Fall precautions maintained. Bedside swallow evaluation revealed evidence of dysphagia. Strict aspiration / reflux precautions were maintained with one-to-one supervision during feeding. Diet downgraded as per speech therapist recommendations. Consider video swallow evaluation as outpatient. Patient clinically improved: no leukocytosis, stable hemoglobin and hematocrit, platelets up to normal. LFT trending down. Electrolytes stable. No shortness of breath . Patient was cleared for discharge by all consultants. 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 DISCHARGE INSTRUCTIONS: Patient was discharged home with home health services. Follow up with primary care provider in one week. I have been assigned to dictate discharge summary for this account. I was not involved in the patient's management. Roxanna Hinton NP May 27, 2018 10:01
== END 2018-05-24 18:30 | disposition home health service (06) | DRG 392 ==
LOC: EDBD 21:37 → EMR 21:58 → 2E 22:29 → EDBEDREQ 23:06 → 4E 05-23 15:44
DX: R10.9 Unspecified abdominal pain (principal); M48.54XA Collapsed vertebra, not elsewhere classified, thoracic region, initial encounter for fracture; I69.351 Hemiplegia and hemiparesis following cerebral infarction affecting right dominant side; E86.0 Dehydration; Z88.6 Allergy status to analgesic agent; K21.9 Gastro-esophageal reflux disease without esophagitis; Z79.02 Long term (current) use of antithrombotics/antiplatelets; I10 Essential (primary) hypertension; D69.6 Thrombocytopenia, unspecified; F41.9 Anxiety disorder, unspecified; R07.89 Other chest pain; M51.36 Other intervertebral disc degeneration, lumbar region; R74.0 Nonspecific elevation of levels of transaminase and lactic acid dehydrogenase [LDH]; K76.9 Liver disease, unspecified; E88.09 Other disorders of plasma-protein metabolism, not elsewhere classified; R13.10 Dysphagia, unspecified
CPT/HCPCS: 36415; 71045; 74177; 74181; 76700; 78266; 80053; 80061; 81001; 81003; 82248; 82550; 82553; 82607; 82746; 82977; 83036; 83605; 83690; 83735; 83880; 84100; 84443; 84484; 84550; 85007; 85025; 85060; 86140; 86703; 86705; 86709; 86803; 87040; 87081; 87086; 87340; 90686; 90732; 93005; 93306; 94760; 96360; 99285; J8499